=== PATIENT | male | born 1945 | race Asian ===

== ENCOUNTER 2016-08-26 12:30 | Inpatient (IN) | payer OTHER ==
[2016-08-26] MEDS ORDERED: NS 1,000 ML IV ONE (12:38)
[2016-08-26] MEDS ORDERED: HYDROmorphONE/DILAUDID 1 MG/ML SYR IVP ONE (12:38)
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
--- NOTE | 2016-08-26 13:04 | DX ---
AP Pelvis History: Trauma, fall, pain Comparison: None Findings: No pelvic or hip fracture identified. The SI joints and pubic symphysis are normally aligne d. There are bilateral inguinal surgical clips suggesting previous mastectomy. Impression: Nothing acute identified.
--- NOTE | 2016-08-26 13:06 | DX ---
Portable Chest 12:43 History: Trauma, fall Comparison: None Findings: Lungs clear. No pneumothorax, pulmonary contusion or pleural fluid. There is a thoracic sco liosis likely chronic. There is no paraspinal stripe widening. Difficult to exclude cardiomegaly. The pulmonary vascularity is normal for portable supine technique. No obvious fracture identified. Impression: Nothing acute identified.
[2016-08-26 13:18] LABS: % IMMATURE GRANULYOCYTES 0.2 % (0.0-1.1); ABSOLUTE IMMATURE GRANULOCYTES 0.01 10^3/uL (0.00-0.10); ADD DIFF? NO; ADD MORPH? NO; ADD SCAN? NO; ATYPICAL LYMPHOCYTE FLAG 0 (0-99); FRAGMENT RBC FLAG 0 (0-99); HEMATOCRIT 40.9 % (40.0-51.0); HEMOGLOBIN 14.4 g/dL (13.7-17.5); LEFT SHIFT FLG 0 (0-99); LIPEMIA HEMOLYSIS FLAG 90 (0-99); MEAN CELL HEMOGLOBIN 31.4 pg (27.9-34.1); MEAN CELL HEMOGLOBIN CONCENTR. 35.2 g/dL (32.4-36.7); MEAN CELL VOLUME 89.3 fL (81.5-99.8); MEAN PLATELET VOLUME 10.4 fL (8.7-11.7); PLATELET CLUMPS FLAG 0 (0-99); PLATELET COUNT 285 10^3/uL (150-400); RED BLOOD CELL COUNT 4.58 10^6/uL (4.40-6.38); RED CELL DISTRIBUTION WIDTH 12.9 % (11.5-15.2)
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
[2016-08-26 13:35] LABS: INR 0.94 (0.83-1.16); PROTIME(PATIENT) 12.5 SEC (12.0-15.0)
[2016-08-26 13:36] LABS: APTT 28.1 SEC (23.0-38.0)
[2016-08-26 13:46] LABS: ANION GAP 12 mEq/L (8-16); CALCIUM 10.7 mg/dL (8.5-10.4); CARBON DIOXIDE 25 mEq/l (22-31); CHLORIDE 100 mEq/L (97-110); CREATININE 0.7 mg/dL (0.7-1.3); ETHANOL SERUM < 10 mg/dL (0-10); GLOMERULAR FILTRATION RATE > 60; GLUCOSE 254 mg/dL (70-100); POTASSIUM 4.3 mEq/L (3.5-5.2); SODIUM 137 mEq/L (134-144)
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
--- NOTE | 2016-08-26 15:31 | MR ---
MRI of the Cervical Spine (Without Contrast), 14:26 History: Bilateral upper extremity weakness and paresthesias post fall earlier today Comparison: CT neck at 12:49 Technique: Sagittal T1, FSE T2 and STIR images. Axial FSE T2 and GRE images. Findings: The craniocervical junction is normal. Cervical alignment is abnormal and was described on the CT earlier. In brief there is reversed cervical curvature and a mild dextroscoliosis. The cervica l neural canal is currently associated with multilevel spinal stenosis related to disk degeneration a nd dorsal ligamentous hypertrophy. The cervical spine is severely compressed at C3-C4 by a calcified disk protrusion that narrows the midline of the thecal sac to approximately 4.5 mm in the midline and significantly less to the left of midline the cord is banana shaped at this level and no CSF remains in front of or behind the cord. There is some subtle gliosis within the cord beginning at this level and extending to the bottom of C4. There is no evidence of cord hemorrhage or syrinx formation. Ther e is no bone marrow edema to suggest acute hemorrhage. The anterior and posterior longitudinal ligame nt and inter spinous process ligament appear intact. There is no prevertebral or epidural hematoma. C ervical disk spaces below C3 are all severely narrowed. There is some degenerative fatty marrow michael e on either side of the cc for 5 and C6-C7 disk spaces. C2-C3: There is a mild disk bulge or protrusion to the right of midline. CSF surrounds the cord. Both foramen are widely patent. C3-C4: As noted above there is severe central canal stenosis related to a calcified disk protrusion. This material extends above and below the disk space consistent with a prolapsed fragment. There is m oderate right foraminal encroachment secondary to uncovertebral joint spurring. The left foramen is w idely patent. C4-C5: There is a diffuse calcified disk protrusion associated with marginal bone spurs. The protrusi on is greatest centrally and slightly to the left and midline. Virtually no CSF remains in front of o r behind the cord at this level. In the midline AP diameter of the thecal sac is approximately 6.8 mm . There is severe bilateral lateral recess and foraminal stenosis related to uncovertebral joint spur ring. C5-C6: There is a centrally calcified disk protrusion associated with marginal osteophytes and marine chronometer assembler ior ligamentous hypertrophy that together cause severe central canal stenosis with virtually no CSF r emaining or foraminal in front of or behind the cord at this level. The ventral aspect of the cord is mildly flattened. In the midline AP diameter of the thecal sac is approximately 7 mm. There is righ t greater than left severe foraminal stenosis related to uncovertebral joint spurring. There is signi ficant dorsal indentation on the thecal sac related to ligamentous hypertrophy behind the C6 vertebra l body. The cord is prominently dorsally indented. C6-C7: There is a moderate retrolisthesis at this level in the midline AP diameter of the thecal sac is approximately 8.7 mm. A tiny amount of CSF remains behind the cord at this level. AP diameter of t he thecal sac is approximately 7.8 mm. As noted above directly above the disk space level there is do rsal compression of the cord due to ligamentous hypertrophy. There is severe right lateral recess and foraminal encroachment related to uncovertebral joint spurring. Left foramen is more mildly encroach ed upon. C7-T1: There is a diffuse mild disk bulge. CSF is present in front of and behind the cord. In the mid line AP diameter of the thecal sac is approximately 9.6 mm. There is severe right foraminal stenosis secondary to uncovertebral joint spurring. The left foramen is more mildly encroached upon. T1-T2: Normal Impression: Multilevel spondylosis associated with severe central canal stenosis and cord impingement worst at C3-C4. There is no evidence for cord hemorrhage. There is multilevel severe foraminal steno sis. Please see above. I f there is concern for instability consider supervised lateral cervical flex ion and extension views.. Results discussed with Dr. Vasquez at 15:29 p.m.
[2016-08-26] MEDS ORDERED: NALOXONE HCL 0.4 MG/ML INJ IVP PRN (16:23)
[2016-08-26] MEDS ORDERED: ONDANSETRON 4 MG/2 ML VIAL IVP PRN (16:23)
[2016-08-26] MEDS ORDERED: D5W NS 1,000 ML IV SCH (16:30)
--- NOTE | 2016-08-26 19:25 | GCON ---
[f rep st] CONSULTATION NEUROSURGICAL CONSULTATION IN THE EMERGENCY DEPARTMENT. CHIEF COMPLAINT: Fall with weakness. 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 He was at [employer] and the wind caught a grocery cart and he reached to catch it and was knocked over. He had a complete paralysis of his upper and lower ext remities, which slowly returned. He continues to have weakness in his upper extremities, distal and proximal, and allodynia with hyperesthesias of the upper extremities. His lower extremities have rec overed to normal. He denies any lower extremity pain, numbness, tingling, or weakness. He does have weakness in his upper extremities, left greater than right, with hyperesthesias, allodynia. He does have some neck pain at the midline with tenderness. He is in a cervical collar. He denies any hist ory recently of any worsening falls, any worsening dexterity, any bowel or bladder dysfunction, or an y weakness. He denies any history of neck pain or arm pain. He is unaware that he had cervical spon dylosis. PAST MEDICAL HISTORY: Positive for diabetes, peptic ulcer 40 years ago. PAST SURGICAL HISTORY: He denied. FAMILY HISTORY: There is no family history of significant degenerative disease, stroke, or other con tributory factors. SOCIAL HISTORY: He does not drink alcohol beyond an occasional social drink. He does not smoke. He does not use illicit drugs. ALLERGIES: No known drug allergies, although he cannot tolerate NSAIDs secondary to his history of u lcer. MEDICATIONS: Home medications include simvastatin, metformin, 2 other medications, and insulin. He is unaware what the other 2 medications are, but they are both diabetic medications. He takes no asp irin, Plavix, Coumadin, ibuprofen, or Aleve. REVIEW OF SYSTEMS: A complete 10-system review of systems was performed by myself. It was negative except as stated above. PHYSICAL EXAMINATION: VITAL SIGNS: Blood pressure 107/75. MAP is 85. Heart rate is 75. Respirato ry rate is 18. Satting 99% on room air. Temperature 36.6 degrees Celsius. LABORATORY DATA: White blood cell count is 6.55, hemoglobin of 14.4, hematocrit is 40.9, platelets a re 285. PT is 12.5, INR is 0.94, PTT is 28.1. Sodium 137, potassium 4.3, chloride 100, BUN 18, crea tinine 0.7. Glucose 254. Alcohol is less than 10. A CT of the head and cervical spine reveals a left frontal scalp hematoma without evidence of underly ing skull fracture, normocephalic, no coup or contrecoup brain hemorrhage or edema. There was no mid line shift, hydrocephalus, parenchymal or subarachnoid hemorrhage. The ambient cistern is patent. T here is no evidence of subdural or epidural hematoma formation, but a window evaluation does not show evidence of a depressed skull fracture or pneumocephalus. The paranasal and mastoid sinuses are nor mal aerated. A CT of the cervical spine reveals mild cervical scoliosis concaved to the left. With a reversal of the cervical curvature centered in the mid cervical spine, there is likely degenerative retrolisthesi s, C4 on 5, C5 on 6, C6 on 7, with degenerative disk space, narrowing between C3 and C7. There is va cuum disk phenomenon at C7 and T1. The cervicothoracic junction is normally aligned. Facets joints are normally aligned. There is degenerative change of the left C2-3, C6-7, C7-T1, T1-T2, and right C 7-T1 facets. No acute fracture or dislocation is identified. The relationship between the skull bas e and the C1 is normal. The C1-2 articulation is normally aligned, but osteoarthritic. There is deg enerative calcification of the transverse ligament. The odontoid process is intact. There are calci fied cervical disk herniations between C3 and C7, the largest being at C3-4 where a dense disk materi al is identified behind and both above and below the disk space. The neuro canal is quite narrowed. It is level and measures approximately 7 mm in AP diameter. The neuro canal is also quite narrow at C6-7 secondary to osteophyte formation at the posterior inferior corner of C6 where a neuro canal me asures approximately 8.5 mm in diameter. There is severe right lateral recess and medial foraminal s tenosis at C3-4. Severe left foraminal stenosis at C4-5, severe left foraminal stenosis at C5-6, sev ere right foraminal stenosis at C6-7, and severe left foraminal stenosis at C7-T1. Facet joints are normally aligned. Cervicothoracic junction is normal. Soft tissue window evaluation does not show e vidence of epidural or pre-vertebral hematoma. MRI of the cervical spine, without contrast, reveals a reversal of the normal cervical lordosis and a mild dextroscoliosis. The cervical neuro canal is currently associated with multilevel spinal steno sis related to disk degeneration and dorsal ligamentous hypertrophy. The cervical spine is severely compressed at C3-4 by calcified disk protrusion that narrows the midline of the thecal sac to approxi mately 4.5 mm in the midline and significantly left. To the left of midline, the cord is compressed at this level and no CSF remains in front or behind the cord. There is some subtle gliosis with the cord beginning at this level and extending to the bottom of C4. There is no evidence of cord hematom a or syrinx. There is no bone marrow edema to suggest acute hemorrhage. The anterior and posterior longitudinal ligament and interspinous process ligament are intact. There is no prevertebral or epid ural hematoma. Cervical disk spaces below the C3 are all severely narrowed with some degenerative fa tty marrow change on either side for C5 and C6-7 spaces. At C2-3, there is a mild disk bulge or prot rusion to the right of midline. CSF surrounds the cord. Both foramen are widely patent. At C4, it is noted there is severe central canal stenosis secondary to calcified disk and osteophyte. This mat erial extends above and below the disk space, consistent with prolapsed fragment. There is moderate right foraminal encroachment secondary to uncovertebral joint spurring. Left foramen is widely paten t. There is a diffuse calcified disk protrusion associated with marginal bone spurs at C4-5. The pro trusion is greatest centrally and slightly to the left of midline, virtually no CSF remains in front or behind the cord at this level, and the midline AP diameter of the thecal sac is approximately 6.8 mm. There is severe bilateral lateral recess and foraminal stenosis related to uncovertebral joint s purring. At C5-6 there is centrally calcified disk protrusion associated with marginal osteophytes a nd posterior ligamentous hypertrophy that together cause severe central canal stenosis. Virtually no CSF remaining around the foramen, in front of, or behind the cord at this level. The ventral aspect of the cord is mildly flattened in the midline. The AP diameter of the thecal sac is approximately 7 mm. There is right greater than left severe foraminal stenosis related to uncovertebral joint spur ring. There is significant dorsal indentation of the thecal sac related to ligamentous hypertrophy b ehind the C6 vertebral body. The cord is prominent dorsally, indented. At C6-7, there is moderate r etrolisthesis at his level in the midline. AP diameter of the thecal sac is approximately 8.7 mm. A small amount of CSF remains posterior to the cord at this level. The AP diameter of the thecal sac is approximately 7.8 mm. As noted above, directly above the disk space level, there is dorsal compre ssion of the cord due to ligamentous hypertrophy. There is severe right lateral recess and foraminal encroachment related to uncovertebral joint spurring. Left foramen is mildly encroached upon. At C 7-T1, there is diffuse mild disk bulging and CSF is present in front of, behind the cord, and in the midline. AP diameter of the thecal sac is approximately 9.6 mm. There is severe right foraminal balbir nosis secondary to uncovertebral joint spurring. The left foramen is more mildly encroached upon. PHYSICAL EXAMINATION: GENERAL: He is alert and oriented x3. HEENT: There is a little frontal scalp hematoma and abrasion. Pupils are equal, round, and reactive to light and accommodation. External ocular muscles are intact. There is no facial asymmetry or to ngue deviation. NEURO: Sensation is intact in V1, V2, and V3 distributions of the 5th cranial nerve bilaterally. St rength is 5/5 to bilateral hip flexors, knee flexion, knee extension, dorsiflexors, plantar flexors, and EHLs. Sensation is intact to all dermatomal distributions of the lower extremities. DTRs are +2 /4 at patellar and Achilles. Toes are upgoing. There are 2 beats of clonus. On the upper extremiti es, he has hyperesthesias and allodynia, left greater than right. He has 5/5 to the right deltoid, 4 /5 at biceps and triceps, 3/5 at wrist flexors and wrist extensors, and 2/5 at hand intrinsics on the right. On the left, he has 4/5 at the deltoid, 3/5 at biceps and triceps, 2/5 at wrist flexors and wrist extensors, and 1/5 at the hand intrinsics. DTRs are +3/5 at biceps, brachioradialis. He has p ositive Gonzalez's bilaterally. 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 I had a very long discussion with the patient lasting approximately and hour and a half with he and his regarding his history, physical exam, and imaging findings. At this point in time, he will be admitted to the ICU for at least a week of maintaining his MAP greater than 85. Maintain him in a hard cervical collar. Will institute some Neurontin as he has hyperesth esias and neuropathic pain developing. [facility]. Sometime after he is stabilized and we have maintained his MAPs for at least a week, he will require surgical intervention, likely an anterior posterior fusion in a delayed fashion. Justification for the delay at this point in time i s to prevent further worsening with an inflamed cord. I did discuss this plan with him. Trauma has been notified. Trauma has admitted the patient. We will be happy to take over as the primary servic e in 24 hours after the trauma criteria have been met. Would continue with q.1-hour neuro checks. P breanna call with any changes in neurologic status. /[id number]/MODL
[2016-08-26] MEDS ORDERED: D50W 25 GM/50 ML SYR IVP PRN (19:43)
[2016-08-26] MEDS ORDERED: PARAMETERS MISC PRN (19:43)
[2016-08-26] MEDS: FAMOTIDINE 20 MG/NACL 50 ML IV SCH (21:27)
[2016-08-26] MEDS: INSULIN REGULAR, HUMAN 100 UNIT/1 ML VIAL STANDARD SC SCH (21:55)
[2016-08-26] MEDS: GABAPENTIN 100 MG CAP PO SCH (22:01)
--- NOTE | 2016-08-26 22:14 | IR ---
Ultrasound-Guided Peripherally Inserted Central Catheter History: Posttraumatic central cord syndrome. Technique: Procedure was performed with the patient in the hospital bed. Following informed consent, the right arm was prepped and draped in sterile fashion. 1% Xylocaine was used for local anesthetic. All elements of maximal sterile barrier technique including cap, mask, sterile gown, sterile gloves , large sterile sheet, hand hygiene, and 2% chlorhexidine for cutaneous antisepsis, followed. Ultraso und transducer was placed in sterile sleeve and used for real-time imaging guidance to enter the basi lic vein. Sterile coupling gel was used. 0.018 measuring wire was passed centrally , and the inter nal jugular vein was assessed sonographically to exclude retrograde malposition . A skin lucio with scalpel blade was followed by removing the access needle. A 5.5 Setswana peel-away sheath was followed by a 5 Setswana double-lumen central catheter, trimmed to 35 cm length. The length of catheter was rosalee mated from external measurements. The hub of the catheter was fixed to the skin using a sterile StatL ock adhesive device, and a sterile dressing was applied. The catheter irrigated easily. A portable chest radiograph was requested and will be reported separately. Findings: No sonographic evidence of malposition in the internal jugular vein. Impression: Ultrasound-guided 5 Setswana double-lumen peripherally inserted central catheter; radiograp hic confirmation is pending. - - - - - - - - - - - - - - - - - - - - - - - - - - - - - - - - - - - - - - - - - - - (Cross-cutting measures: Current medications, including all known prescriptions, [id number] me dications, herbal medications, and nutritional supplements are listed in the medical record. The pat ient does not smoke. ) IR call.
--- NOTE | 2016-08-26 22:16 | DX ---
Portable semiupright AP chest August 26, 2016, 2145 hours History: Assess new central catheter. Findings: Telemetry leads obscure the chest. Peripherally inserted central catheter of the right arm terminates in the superior vena cava. Lungs are clear. Heart size is normal. Scoliosis is unchanged f rom 1243 hours. Impression: New peripherally inserted central catheter of the right arm is ready to use. IR call
--- NOTE | 2016-08-27 07:21 | NEUSURGPN ---
Assessment/Plan: 70 yo M s/p fall with cervical stenosis and central cord syndrome Plan: -diet ordered -Pain management, on gabapentin 100 TID, can increase dose in a few days -OOB with assist only -C collar at all times -Keep MAP >85 -D/w Dr Holloway -Call NS with any issues Subjective: Pt resting in bed, states his arms are getting stronger, still with pain in arms. Legs feel fine. Objective: AAOx3 NAD VSS C collar on BUE - skin sensitive to touch. Able to lift arms and wiggle fingers. Cannot fully extend left hand, stronger on right Motor 5/5 BLE, intact sensation BLE Urinary Catheter in Place: No - Physician Discussed Patient with : [facility] Physical Exam - Vitals, I&O, Labs I and O 08/26/16 08/27/16 08/28/16 05:59 05:59 05:59 Intake Total 1569 Output Total 375 Balance 1194 Weight 48.1 kg Intake: Oral (ml) 0 IV Infused (ml) 1569 D5w Ns 1,000 ml @ 125 mls 1376 /hr IV CONT LAILA Rx#: [id number] Norepinephrine Bitartrate 193 4 mg In D5w 500 ml @ Titrate IV CONT LAILA Rx#: [id number] Output: Urine (ml) 375 Urinal 375 Vital Signs Temp Pulse Resp BP Pulse Ox 36.6 C 74 19 166/74 H 97 08/26/16 17:23 08/27/16 06:00 08/27/16 06:00 08/27/16 06:00 08/27/16 06:00 ICD10 Worksheet Patient Problems: Problems Problem Status Diagnosed Central cord syndrome Acute - ICD10 Problem Qualifiers (1) Central cord syndrome
--- NOTE | 2016-08-27 08:02 | TRAUMAPN ---
- Problem/Surgery Performed (1) Central cord syndrome Assessment/Plan: continue to maintain MAPs greater than 85 for central cord syndrome s/p fall in the setting of severe cervical stenosis Per Dr. Holloway, he will need operative intervention once the acute inflammation /edema has resolved She will take over care of the patient, as he has no other acute traumatic injuries, but we will be happy to reconsult if needed. Subjective: continues to have severe shooting pain and paresthesias of bilateral upper extremities Objective: Vital Signs Temp Pulse Resp BP Pulse Ox 36.6 C 74 19 166/74 H 97 08/26/16 17:23 08/27/16 06:00 08/27/16 06:00 08/27/16 06:00 08/27/16 06:00 08/26/16 08/27/16 08/28/16 05:59 05:59 05:59 Intake Total 1569 Output Total 375 Balance 1194 PT 12.5 SEC (12.0-15.0) 08/26/16 12:38 INR 0.94 (0.83-1.16) 08/26/16 12:38 Physical Exam - Physical Exam General Appearance: alert Neck: other (in [place] J collar)
[2016-08-27] MEDS: INSULIN REGULAR, HUMAN 100 UNIT/1 ML VIAL STANDARD SC SCH ×4 (08:47→21:18)
[2016-08-27] MEDS: GABAPENTIN 100 MG CAP PO SCH ×3 (08:47→21:08)
[2016-08-27] MEDS: FAMOTIDINE 20 MG/NACL 50 ML IV SCH ×2 (08:47→21:08)
[2016-08-27] MEDS: NS 1,000 ML IV SCH ×2 (10:31→23:00)
[2016-08-27] MEDS ORDERED: GLIMEPIRIDE 2 MG TAB PO ONE (17:00)
--- NOTE | 2016-08-27 17:23 | GCON ---
[f rep st] CONSULTATION PULMONARY/CRITICAL CARE CONSULTATION DATE OF CONSULTATION: 08/27/2016 REFERRING PHYSICIAN: Birdie Holloway DO REASON FOR REFERRAL: Evaluation and management of diabetes with hyperglycemia and blood pressure management. HISTORY: The patient is a 70-year-old gentleman, recently retired from [employer], who was in his usual state of health when he was shopping and the wind caught a grocery cart. He was knocked over and had complete quadriplegia that was transient. He was brought into the hospital because of the quadriplegia. Today , he continued to have paresthesias/hyperesthesia of his upper extremities, but he states that is improving. He is also starting to regain some strength in his upper extremities and has significant strength in his lower extremities. He has had a cervical collar on since being brought to the hospital. He denies any bowel or bladder dysfunction. He has no prior known history of cervical stenosis. PAST MEDICAL HISTORY: 1. Diabetes. 2. Peptic ulcer. MEDICATIONS: At the time of admission included simvastatin, metformin, aspirin , insulin, and Amaryl. ALLERGIES: None. SOCIAL HISTORY: The patient does not drink or smoke. FAMILY HISTORY: Unremarkable. REVIEW OF SYSTEMS: A 10-point review of systems adds nothing to the history of present illness. PHYSICAL EXAMINATION: GENERAL: The patient is awake, alert, and in no acute distress, lying in bed. VITAL SIGNS: His blood pressure is 167/72 with a mean arterial pressure of 96. His heart rate is 80. His oxygen saturations are 98% on room air. HEENT: Normocephalic and atraumatic. No icterus. NECK: A cervical collar is in place. No palpable adenopathy. CHEST: Clear to auscultation. CARDIAC: Regular rate and rhythm without murmur. ABDOMEN: Soft , nontender. Bowel sounds are present. EXTREMITIES: No clubbing, cyanosis, or edema. NEURO: The patient has just 2/5 strength in both upper extremities and has some hyperesthesias. He has 4/5 strength in both lower extremities. LABORATORY: CBC is normal. Chemistry group is normal. Glucose is 281 and has been in the 200s since hospitalization. A chest x-ray is unremarkable. Images reviewed. CT scan of the cervical spine shows severe central canal stenosis at C3-4 and C6 -7. Cervical spine MRI confirms severe foraminal stenosis, with no evidence of cord hemorrhage. ASSESSMENT: 1. Transient quadriplegia due to severe cervical stenosis with a transient injury. The patient has return of neuro function following this acute injury. Current management is to include maintenance of a cervical collar as well as maintaining a mean arterial pressure of least 85. Norepinephrine is being used as needed to maintain blood pressure. 2. Diabetes. The patient has been hyperglycemic, likely because his metformin and Amaryl are being held. RECOMMENDATIONS: Resume Amaryl. Metformin could be given if no further contrast imaging studies are planned. His insulin dose will also be increased in order to try to improve his glycemic control. /[id number]/MODL MTDD
[2016-08-28] MEDS: NOREPINEPHRINE BITARTRATE 4 MG in D5W 500 ML IV SCH (00:48)
--- NOTE | 2016-08-28 07:26 | SOAPPROG ---
SOAP Progress Note Assessment/Plan: Assessment: 70 yo M with central cord syndrome and cervical stenosis Plan: stable will keep MAPs above 85 mmhg continue hard collar at all times PT/OT please call with neuro changes patient was seen by DR Sanford 08/28/16 07:24 Subjective: continued burning pain in hands and hand weakness. Objective: Vital Signs Temp Pulse Resp BP Pulse Ox 36.7 C 77 18 164/76 H 98 08/28/16 04:00 08/28/16 06:00 08/28/16 06:00 08/28/16 06:00 08/28/16 06:00 08/27/16 08/28/16 08/29/16 05:59 05:59 05:59 Intake Total 1569 3347 Output Total 375 2930 Balance 1194 417 PT 12.5 SEC (12.0-15.0) 08/26/16 12:38 INR 0.94 (0.83-1.16) 08/26/16 12:38 AAOx4 ,+FC PERRL, EOMI, no facial droop upper extremities 3-/5 deltoids/biceps, 2-/5 triceps/implementation director 5/5 legs + light touch x 4 ICD10 Worksheet Patient Problems: Problems Problem Status Diagnosed Central cord syndrome Acute Cervical spinal cord injury Acute
[2016-08-28] MEDS: INSULIN REGULAR, HUMAN 100 UNIT/1 ML VIAL STANDARD SC SCH ×4 (08:26→20:45)
[2016-08-28] MEDS: FAMOTIDINE 20 MG/NACL 50 ML IV SCH (08:27)
[2016-08-28] MEDS: GLIMEPIRIDE 2 MG TAB PO SCH (08:27)
[2016-08-28] MEDS: GABAPENTIN 100 MG CAP PO SCH ×3 (08:27→21:51)
[2016-08-28] MEDS ORDERED: POLYETHYLENE GLYCOL 3350 17 GM PKT PO PRN (10:20)
[2016-08-28] MEDS ORDERED: BISACODYL 10 MG SUPP PR PRN (10:20)
[2016-08-28] MEDS ORDERED: MAGNESIUM HYDROXIDE 30 ML UDCUP PO PRN (10:20)
[2016-08-28] MEDS ORDERED: LACTULOSE 20 GM/30 ML UDCUP PO PRN (10:20)
--- NOTE | 2016-08-28 13:12 | PDINTPN ---
[employer] Progress Note Assessment/Plan: Assessment: Status post cervical spine injury, with transient quadriplegia, now improving slowly. Upper extremities affected more than the lower extremities. Neuro surgery is following. On Levophed to maintain mean arterial pressures greater than 85. On Neurontin for associated pain and hypersensitivity. Diabetes: On oral agents and sliding scale insulin. Blood sugars acceptable. Plan: Continue neuro monitoring and blood pressure support in the intensive care unit for now. Will need cervical spine surgery at some point for decompression. Will follow laboratory intermittently. Continue insulin by sliding scale. Subjective: Doing okay. Movement of the upper extremities is a little better, strength slightly better. He continues to be quite hypersensitive. Lower extremities at baseline according to the patient. No neck pain. In a collar. Objective: Vital Signs Temp Pulse Resp BP Pulse Ox 36.7 C 81 16 171/83 H 98 08/28/16 04:00 08/28/16 12:00 08/28/16 12:00 08/28/16 12:00 08/28/16 12:00 08/27/16 08/28/16 08/29/16 05:59 05:59 05:59 Intake Total 1569 3347 Output Total 375 2930 Balance 1194 417 PT 12.5 SEC (12.0-15.0) 08/26/16 12:38 INR 0.94 (0.83-1.16) 08/26/16 12:38 Physical Exam - Physical Exam General Appearance: alert, no apparent distress, other (In bed, appears comfortable ) EENT: PERRL/EOMI Neck: other (Hard collar) Respiratory: lungs clear Cardiac/Chest: regular rate, rhythm Abdomen: normal bowel sounds, non-tender, soft Male Genitalia: other (No [place] catheter) Back: Normal inspection Skin: warm/dry, pallor Lymphatic: no adenopathy Extremities: No pedal edema Neuro/Psych: motor weakness, sensory deficit, other (Right upper extremity stronger than left, approximately 3+ orange picker on the right, 1+ on the left. Hypersensitivity persists. Moves lower extremities equally with good strength.) , No cognition abnormalities ICD10 Worksheet Patient Problems: Problems Problem Status Diagnosed Central cord syndrome Acute Cervical spinal cord injury Acute
[2016-08-28] MEDS: SENNOSIDES/DOCUSATE SODIUM TAB PO SCH (20:45)
[2016-08-29 05:19] LABS: % IMMATURE GRANULYOCYTES 0.4 % (0.0-1.1); ABSOLUTE IMMATURE GRANULOCYTES 0.04 10^3/uL (0.00-0.10); ADD DIFF? NO; ADD MORPH? NO; ADD SCAN? NO; ATYPICAL LYMPHOCYTE FLAG 0 (0-99); FRAGMENT RBC FLAG 0 (0-99); HEMATOCRIT 36.6 % (40.0-51.0); HEMOGLOBIN 12.7 g/dL (13.7-17.5); LEFT SHIFT FLG 10 (0-99); LIPEMIA HEMOLYSIS FLAG 90 (0-99); MEAN CELL HEMOGLOBIN 31.1 pg (27.9-34.1); MEAN CELL HEMOGLOBIN CONCENTR. 34.7 g/dL (32.4-36.7); MEAN CELL VOLUME 89.5 fL (81.5-99.8); MEAN PLATELET VOLUME 10.1 fL (8.7-11.7); PLATELET CLUMPS FLAG 10 (0-99); PLATELET COUNT 201 10^3/uL (150-400); RED BLOOD CELL COUNT 4.09 10^6/uL (4.40-6.38)
[2016-08-29 05:24] LABS: ALANINE AMINOTRANSFERASE 24 IU/L (21-72); ALKALINE PHOSPHATASE 46 IU/L (38-126); ANION GAP 5 mEq/L (8-16); ASPARTATE AMINOTRANSFERASE 15 IU/L (17-59); BILIRUBIN,TOTAL 0.7 mg/dL (0.1-1.4); CALCIUM 9.6 mg/dL (8.5-10.4); CARBON DIOXIDE 24 mEq/l (22-31); CHLORIDE 106 mEq/L (97-110); CREATININE 0.7 mg/dL (0.7-1.3); GLOMERULAR FILTRATION RATE > 60; GLUCOSE 121 mg/dL (70-100); POTASSIUM 3.9 mEq/L (3.5-5.2); SODIUM 135 mEq/L (134-144); TOTAL PROTEIN 5.8 g/dL (6.3-8.2)
--- NOTE | 2016-08-29 06:42 | NEUSURGPN ---
Assessment/Plan: Assessment: 70 yo M with central cord syndrome and cervical stenosis Plan: -neuro improved with some increased strength in arms, continued pain -stable -will keep MAPs above 85 mmhg until 09/02 -continue hard collar at all times -PT/OT-CPM -please call with neuro changes -d/w Dr Dinh -continue with ICU status Subjective: No new complaints or concerns. Pt resting well. at bedside. No denise/cp/sob /abd or gu complaints. Objective: AAOx4 ,+FC PERRLA, EOMI, no facial droop upper extremities 3-/5 deltoids/biceps, 2-/5 triceps/treatment plant operator 3/5 5/5 legs = + light touch x 4 Neuro Check Frequency: per routine Urinary Catheter in Place: No - Physician Discussed Patient with : [facility] Physical Exam - Vitals, I&O, Labs I and O 08/28/16 08/29/16 08/30/16 05:59 05:59 05:59 Intake Total 3347 2507.2 Output Total 2930 2950 Balance 417 -442.8 Intake: Oral (ml) 700 200 IV Infused (ml) 2647 2307.2 Norepinephrine Bitartrate 313 74.2 4 mg In D5w 500 ml @ Titrate IV CONT LAILA Rx#: [id number] Ns 1,000 ml @ 100 mls/hr 2334 2233 IV CONT LAILA Rx#: [id number] Output: Urine (ml) 2930 2950 Urinal 2930 2950 Other: Intake Quantity Yes Sufficient Number of Voids Urinal 1 1 Vital Signs Temp Pulse Resp BP Pulse Ox 36.7 C 74 17 149/75 H 100 08/29/16 04:00 08/29/16 06:00 08/29/16 06:00 08/29/16 06:00 08/29/16 06:00 Laboratory Results 08/29/16 05:00 08/29/16 05:00 ICD10 Worksheet Patient Problems: Problems Problem Status Diagnosed Central cord syndrome Acute Cervical spinal cord injury Acute
[2016-08-29] MEDS: INSULIN REGULAR, HUMAN 100 UNIT/1 ML VIAL STANDARD SC SCH ×3 (08:41→19:00)
[2016-08-29] MEDS: GABAPENTIN 100 MG CAP PO SCH ×3 (08:42→21:32)
[2016-08-29] MEDS: GLIMEPIRIDE 2 MG TAB PO SCH (08:42)
[2016-08-29] MEDS: SENNOSIDES/DOCUSATE SODIUM TAB PO SCH ×2 (08:42→21:32)
--- NOTE | 2016-08-29 16:15 | PDINTPN ---
Administrative Director Progress Note Assessment/Plan: Assessment: Status post cervical spine injury, with transient quadriplegia, now improving slowly. Upper extremities affected more than the lower extremities. Neuro surgery is following. On Levophed to maintain mean arterial pressures greater than 85. On Neurontin for associated pain and hypersensitivity. Diabetes: On oral agents and sliding scale insulin. Blood sugars acceptable. Can restart outpatient oral Plan: Continue neuro monitoring and blood pressure support in the intensive care unit for now. Will need cervical spine surgery at some point for decompression. Will follow laboratory intermittently. Continue insulin by sliding scale. Restart metformin. Start Lovenox prophylactically. Rehab consultation for care following discharge. Discussed with nursing, the patient and his , and the ICU multi disciplinary team. Subjective: Doing okay. Weakness persists, perhaps a little bit better in the upper extremities. Pain sensations related to the upper extremities and torso persists. Objective: Vital Signs Temp Pulse Resp BP Pulse Ox 37.3 C 82 20 153/74 H 95 08/29/16 07:00 08/29/16 15:00 08/29/16 15:00 08/29/16 15:00 08/29/16 15:00 Laboratory Results 08/29/16 05:00 08/29/16 05:00 08/28/16 08/29/16 08/30/16 05:59 05:59 05:59 Intake Total 3347 2507.2 Output Total 2930 2950 1225 Balance 417 -442.8 -1225 PT 12.5 SEC (12.0-15.0) 08/26/16 12:38 INR 0.94 (0.83-1.16) 08/26/16 12:38 Laboratory Tests 08/28/16 08/29/16 11:32 05:00 POC Glucose 221 H Calcium 9.6 Total Bilirubin 0.7 AST 15 L ALT 24 Albumin 3.0 L Physical Exam - Physical Exam General Appearance: alert, mild distress (At times) EENT: PERRL/EOMI, other (On room air) Neck: normal inspection (No JVD) Respiratory: lungs clear, decreased breath sounds (At bases) Cardiac/Chest: regular rate, rhythm Abdomen: normal bowel sounds, non-tender, soft Male Genitalia: other (No Tinoco catheter, using urinal) Skin: normal color, warm/dry Lymphatic: no adenopathy Extremities: pedal edema (Trace) Neuro/Psych: motor weakness (Upper extremities primarily. He is able to stand with assistance, pivot to chair.), No no motor/sensory deficits, No cognition abnormalities ICD10 Worksheet Patient Problems: Problems Problem Status Diagnosed Central cord syndrome Acute Cervical spinal cord injury Acute
[2016-08-29] MEDS: ENOXAPARIN 40 MG/0.4 ML SYR SC SCH (18:58)
[2016-08-29] MEDS: metFORMIN HCL 500 MG TAB PO SCH (18:58)
[2016-08-29] MEDS ORDERED: INSULIN NPH HUMAN 100 UNIT/ML SC SCH (21:00)
[2016-08-29] MEDS ORDERED: NPH HUMAN INSULIN ISOPHANE 8 UNIT SQ SCH (21:00)
[2016-08-29] MEDS: HYDROCODONE/APAP 5/325 TAB PO PRN (21:32)
[2016-08-30 06:24] LABS: % IMMATURE GRANULYOCYTES 0.4 % (0.0-1.1); ABSOLUTE IMMATURE GRANULOCYTES 0.04 10^3/uL (0.00-0.10); ADD DIFF? NO; ADD MORPH? NO; ADD SCAN? NO; ATYPICAL LYMPHOCYTE FLAG 0 (0-99); FRAGMENT RBC FLAG 0 (0-99); HEMOGLOBIN 12.9 g/dL (13.7-17.5); LEFT SHIFT FLG 10 (0-99); LIPEMIA HEMOLYSIS FLAG 90 (0-99); MEAN CELL HEMOGLOBIN 31.8 pg (27.9-34.1); MEAN CELL HEMOGLOBIN CONCENTR. 34.9 g/dL (32.4-36.7); MEAN CELL VOLUME 91.1 fL (81.5-99.8); MEAN PLATELET VOLUME 10.6 fL (8.7-11.7); PLATELET CLUMPS FLAG 0 (0-99); PLATELET COUNT 209 10^3/uL (150-400); RED BLOOD CELL COUNT 4.06 10^6/uL (4.40-6.38); RED CELL DISTRIBUTION WIDTH 13.1 % (11.5-15.2)
[2016-08-30 07:30] LABS: ANION GAP 7 mEq/L (8-16); CARBON DIOXIDE 24 mEq/l (22-31); CHLORIDE 106 mEq/L (97-110); CREATININE 0.7 mg/dL (0.7-1.3); GLOMERULAR FILTRATION RATE > 60; GLUCOSE 166 mg/dL (70-100); MAGNESIUM 1.8 mg/dL (1.6-2.3); POTASSIUM 4.6 mEq/L (3.5-5.2); SODIUM 137 mEq/L (134-144)
--- NOTE | 2016-08-30 07:30 | NEUSURGPN ---
Assessment/Plan: Assessment: 70 yo M with central cord syndrome and cervical stenosis Plan: -neuro improved with some increased strength in arms, continued pain-better overall day to day -stable -will keep MAPs above 85 mmhg until 09/02 -continue hard collar at all times -plan for 3 level ACDF next week -PT/OT-CPM -please call with neuro changes -d/w Dr Dinh -continue with ICU status Subjective: Awake and alert. NAD. Eating/drinking and voiding. No denise/neck/chest/abd or gu complaints Objective: AAOx4 ,+FC PERRLA, EOMI, no facial droop upper extremities 3-/5 deltoids/biceps, 3/5 triceps/vamp maker 3/5 5/5 legs = + light touch x 4 Neuro Check Frequency: per routine Urinary Catheter in Place: No - Physician Discussed Patient with : [facility] Physical Exam - Vitals, I&O, Labs I and O 08/29/16 08/30/16 08/31/16 05:59 05:59 05:59 Intake Total 2507.2 2477 Output Total 2950 2450 600 Balance -442.8 27 -600 Intake: Oral (ml) 200 600 IV Infused (ml) 2307.2 1877 Norepinephrine Bitartrate 74.2 51 4 mg In D5w 500 ml @ Titrate IV CONT LAILA Rx#: [id number] Ns 1,000 ml @ 100 mls/hr 2233 1826 IV CONT LAILA Rx#: [id number] Output: Urine (ml) 2950 2450 600 Urinal 2950 2450 600 Other: Number of Voids Urinal 1 Bladder Scan Volume (ml) Urinal 75 Vital Signs Temp Pulse Resp BP Pulse Ox 37.3 C 69 19 140/76 H 95 08/30/16 00:00 08/30/16 07:00 08/30/16 07:00 08/30/16 07:00 08/30/16 07:00 Laboratory Results 08/30/16 06:15 ICD10 Worksheet Patient Problems: Problems Problem Status Diagnosed Central cord syndrome Acute Cervical spinal cord injury Acute
[2016-08-30] MEDS ORDERED: NON-FORMULARY NEW DRUG (Glimepiride [Amaryl] 4 MG) PO SCH (09:00)
[2016-08-30] MEDS: ENOXAPARIN 40 MG/0.4 ML SYR SC SCH (09:06)
[2016-08-30] MEDS: GLIMEPIRIDE 2 MG TAB PO SCH (09:07)
[2016-08-30] MEDS: INSULIN REGULAR, HUMAN 100 UNIT/1 ML VIAL STANDARD SC SCH ×3 (09:07→19:15)
[2016-08-30] MEDS: metFORMIN HCL 500 MG TAB PO SCH ×2 (09:07→19:16)
[2016-08-30] MEDS: GABAPENTIN 100 MG CAP PO SCH ×3 (09:07→21:45)
[2016-08-30] MEDS: SENNOSIDES/DOCUSATE SODIUM TAB PO SCH (09:49)
--- NOTE | 2016-08-30 12:42 | PDINTPN ---
Sales Representative Jewelry Progress Note Assessment/Plan: Assessment: Status post cervical spine injury, with transient quadriplegia, now improving slowly. Upper extremities affected more than the lower extremities. Neuro surgery is following. On Levophed to maintain mean arterial pressures greater than 85. On Neurontin for associated pain and hypersensitivity. Diabetes: On oral agents and sliding scale insulin. Blood sugars acceptable. Can restart outpatient oral Plan: Continue neuro monitoring and blood pressure support in the intensive care unit for now. Will need cervical spine surgery at some point for decompression. Tentatively scheduled for the . Will follow laboratory intermittently. Continue insulin by sliding scale and oral agents. Continue Lovenox prophylactically. Rehab consultation for care following discharge. Discussed with nursing, the patient and his , and the ICU multi disciplinary team. 25 minutes of critical care time was spent directly with the patient. Subjective: Doing okay, approximately the same regarding his neurologic status and pain. The latter may be a little bit better. Positive BM. Back on pressors for MAP. Objective: Vital Signs Temp Pulse Resp BP Pulse Ox 36.8 C 75 19 142/76 H 88 L 08/30/16 12:00 08/30/16 12:00 08/30/16 12:00 08/30/16 12:00 08/30/16 12:00 Laboratory Results 08/30/16 06:15 08/30/16 06:15 08/29/16 08/30/16 08/31/16 05:59 05:59 05:59 Intake Total 2507.2 2477 Output Total 2950 2450 1000 Balance -442.8 27 -1000 PT 12.5 SEC (12.0-15.0) 08/26/16 12:38 INR 0.94 (0.83-1.16) 08/26/16 12:38 Physical Exam - Physical Exam General Appearance: alert, no apparent distress EENT: PERRL/EOMI, other (On room air) Neck: other (Hard collar in place) Respiratory: lungs clear, decreased breath sounds (At bases) Cardiac/Chest: regular rate, rhythm Abdomen: normal bowel sounds, non-tender, soft Male Genitalia: other (Using urinal) Skin: normal color, warm/dry Extremities: other (Upper extremity pain/tenderness with touch persists.), No pedal edema Neuro/Psych: motor weakness, No no motor/sensory deficits, No cognition abnormalities (Neurologic examination very similar: Right hand strength greater than left, legs weak but able to stand and take a few steps with assistance) ICD10 Worksheet Patient Problems: Problems Problem Status Diagnosed Central cord syndrome Acute Cervical spinal cord injury Acute
--- NOTE | 2016-08-30 16:10 | PDINTPN ---
Mower Sharpener Progress Note Assessment/Plan: Assessment: Status post cervical spine injury, with transient quadriplegia, now improving slowly. Upper extremities affected more than the lower extremities. Neuro surgery is following. On Levophed to maintain mean arterial pressures greater than 85. On Neurontin for associated pain and hypersensitivity. Diabetes: On oral agents and sliding scale insulin. Blood sugars remain high. Will start Lantus at night. Plan: Continue neuro monitoring and blood pressure support in the intensive care unit for now. Will need cervical spine surgery at some point for decompression. Tentatively scheduled for the . Will follow laboratory intermittently. Continue insulin by sliding scale and oral agents. Continue Lovenox prophylactically. Rehab consultation for care following discharge. Discussed with nursing, the patient and his , and the ICU multi disciplinary team. 20 minutes of critical care time was spent directly with the patient. Subjective: Less pain, perhaps little stronger regarding the upper extremities. Remains in good spirits Objective: Vital Signs Temp Pulse Resp BP Pulse Ox 36.8 C 81 19 134/79 H 96 08/30/16 12:00 08/30/16 15:00 08/30/16 15:00 08/30/16 15:00 08/30/16 15:00 Laboratory Results 08/30/16 06:15 08/30/16 06:15 08/29/16 08/30/16 08/31/16 05:59 05:59 05:59 Intake Total 2507.2 2477 Output Total 2950 2450 1600 Balance -442.8 27 -1600 PT 12.5 SEC (12.0-15.0) 08/26/16 12:38 INR 0.94 (0.83-1.16) 08/26/16 12:38 Physical Exam - Physical Exam General Appearance: alert, no apparent distress, thin EENT: other (On room air) Neck: normal inspection Respiratory: lungs clear, decreased breath sounds Cardiac/Chest: regular rate, rhythm Abdomen: normal bowel sounds, non-tender, soft Skin: normal color, warm/dry Extremities: No pedal edema Neuro/Psych: motor weakness (Hand thumb sewer strength seem slightly better bilaterally. Stronger on the right than the left), No no motor/sensory deficits , No cognition abnormalities ICD10 Worksheet Patient Problems: Problems Problem Status Diagnosed Central cord syndrome Acute Cervical spinal cord injury Acute
[2016-08-30] MEDS ORDERED: INSULIN GLARGINE 100 UNITS/ML SYRINGE SC SCH (21:00)
[2016-08-31] MEDS: SENNOSIDES/DOCUSATE SODIUM TAB PO SCH ×3 (05:38→21:17)
[2016-08-31] MEDS: GABAPENTIN 100 MG CAP PO SCH ×3 (05:42→20:59)
--- NOTE | 2016-08-31 07:32 | SOAPPROG ---
SOAP Progress Note Assessment/Plan: Assessment: 70 yo M with central cord syndrome and cervical stenosis Plan: stable will keep MAPs above 85 mmhg until 09/02/16 continue hard collar at all times PT/OT scd/zoila/lovenox for dvt prophylaxis plan for ACDF next week, likely Sunday09/05/16 please call with neuro changes discussed with Dr Dinh 08/28/16 07:24 08/31/16 07:28 08/31/16 07:32 Subjective: burning in arms/hands improving. patient walked with PT yesterday. wearing collar Objective: Vital Signs Temp Pulse Resp BP Pulse Ox 37.5 C 70 16 154/81 H 97 08/31/16 00:00 08/31/16 06:00 08/31/16 06:00 08/31/16 06:00 08/31/16 06:00 Laboratory Results 08/30/16 06:15 08/30/16 06:15 08/30/16 08/31/16 09/01/16 05:59 05:59 05:59 Intake Total 2477 2295 Output Total 2450 3025 Balance 27 -730 PT 12.5 SEC (12.0-15.0) 08/26/16 12:38 INR 0.94 (0.83-1.16) 08/26/16 12:38 AAOx4, +FC PERRL, EOMI, no facial droop right arm 3+5, left 2+/5 + light touch but hyperesthesia in arms ICD10 Worksheet Patient Problems: Problems Problem Status Diagnosed Central cord syndrome Acute Cervical spinal cord injury Acute
[2016-08-31] MEDS: NS 1,000 ML IV SCH ×3 (08:16→22:48)
[2016-08-31] MEDS: ENOXAPARIN 40 MG/0.4 ML SYR SC SCH (08:16)
[2016-08-31] MEDS: GLIMEPIRIDE 2 MG TAB PO SCH (08:16)
[2016-08-31] MEDS: metFORMIN HCL 500 MG TAB PO SCH ×2 (08:17→18:28)
[2016-08-31] MEDS: INSULIN REGULAR, HUMAN 100 UNIT/1 ML VIAL STANDARD SC SCH ×3 (08:17→18:29)
--- NOTE | 2016-08-31 09:23 | PDINTPN ---
Entry Engineer Progress Note Assessment/Plan: Assessment: Status post cervical spine injury, with transient quadriplegia, now improving slowly. Upper extremities affected more than the lower extremities. Neuro surgery is following. Off Levophed since late yesterday. On Neurontin for associated pain and hypersensitivity. Diabetes: On oral agents and sliding scale insulin. Blood sugars remain high. Lantus started yesterday.. Plan: Continue neuro monitoring in ICU. Restart norepinephrine if needed. Will need cervical spine surgery at some point for decompression. Tentatively scheduled for the vs or ? Per Neurosurgery. Will follow laboratory intermittently. Continue insulin by sliding scale and oral agents. Increase Lantus. Continue Lovenox prophylactically. Discussed with nursing, the patient and his , and the ICU multi disciplinary team. 25 minutes of critical care time was spent directly with the patient. Subjective: Doing well. Feels better. Much less pain related to his upper extremities, shoulders. Walking in the [place] with physical therapy with much less assistance. In good spirits. Objective: Vital Signs Temp Pulse Resp BP Pulse Ox 36.8 C 74 19 117/83 H 95 08/31/16 08:00 08/31/16 08:00 08/31/16 08:00 08/31/16 08:00 08/31/16 08:00 Laboratory Results 08/30/16 06:15 08/30/16 06:15 08/30/16 08/31/16 09/01/16 05:59 05:59 05:59 Intake Total 2477 2295 Output Total 2450 3025 320 Balance 27 -730 -320 PT 12.5 SEC (12.0-15.0) 08/26/16 12:38 INR 0.94 (0.83-1.16) 08/26/16 12:38 Physical Exam - Physical Exam General Appearance: alert, no apparent distress EENT: PERRL/EOMI, other (On room air) Neck: other Respiratory: lungs clear Cardiac/Chest: regular rate, rhythm Abdomen: normal bowel sounds, non-tender, soft Male Genitalia: other (Using urinal) Back: Normal inspection Skin: warm/dry, pallor Lymphatic: no adenopathy Extremities: No pedal edema Neuro/Psych: No no motor/sensory deficits, No cognition abnormalities (Upper extremity examination unchanged regarding strength. Right hand stronger than left, both weak. Touching the hands, arms results in very little pain sensation at this point.) ICD10 Worksheet Patient Problems: Problems Problem Status Diagnosed Central cord syndrome Acute Cervical spinal cord injury Acute
[2016-08-31] MEDS: HYDROCODONE/APAP 5/325 TAB PO PRN (20:58)
[2016-08-31] MEDS: INSULIN GLARGINE 100 UNITS/ML SYRINGE SC SCH (21:05)
[2016-08-31] MEDS: NOREPINEPHRINE BITARTRATE 4 MG in D5W 500 ML IV SCH (22:47)
--- NOTE | 2016-09-01 07:46 | NEUSURGPN ---
Assessment/Plan: Assessment: 70 yo M with central cord syndrome and cervical stenosi Plan: stable will keep MAPs above 85 mmhg until 09/02/16 continue hard collar at all times PT/OT scd/zoila/lovenox for dvt prophylaxis plan ACDF C3/4, C4/5, C5/6 with partial corpectomy C4 next week, likely Sunday09/05/16 please call with neuro changes discussed with Dr Dinh Subjective: Burning pain in arms improved this morning Objective: NAD A&Ox3 MAEx4 WF/WE 1/5 on the left 2/5 on the right. RUE 4-/5, LUE 3+/5, except deltoid 3-/5 Hypersensitivity BUE. BLE 5/5 - Physician Discussed Patient with : [facility] Physical Exam - Vitals, I&O, Labs I and O 08/31/16 09/01/16 09/02/16 05:59 05:59 05:59 Intake Total 2295 2718 Output Total 3025 1470 Balance -730 1248 Intake: Oral (ml) 1150 500 IV Infused (ml) 1145 2218 Norepinephrine Bitartrate 71 20 4 mg In D5w 500 ml @ Titrate IV CONT LAILA Rx#: [id number] Ns 1,000 ml @ 100 mls/hr 1074 2198 IV CONT LAILA Rx#: [id number] Output: Urine (ml) 3025 1470 Urinal 3025 770 Bedside Commode 700 Other: Output Comment Urinal suppository given Number of Voids Urinal 1 4 Bedside Commode 1 Number of Stools Urinal 1 Bedside Commode 1 Vital Signs Temp Pulse Resp BP Pulse Ox 36.8 C 92 17 148/75 H 98 09/01/16 00:00 09/01/16 07:00 09/01/16 07:00 09/01/16 07:00 09/01/16 07:00 Laboratory Results 08/30/16 06:15 08/30/16 06:15 ICD10 Worksheet Patient Problems: Problems Problem Status Diagnosed Central cord syndrome Acute Cervical spinal cord injury Acute
[2016-09-01] MEDS: INSULIN REGULAR, HUMAN 100 UNIT/1 ML VIAL STANDARD SC SCH ×3 (08:57→17:58)
[2016-09-01] MEDS: metFORMIN HCL 500 MG TAB PO SCH ×2 (09:02→18:02)
[2016-09-01] MEDS: ENOXAPARIN 40 MG/0.4 ML SYR SC SCH (09:02)
[2016-09-01] MEDS: GLIMEPIRIDE 2 MG TAB PO SCH (09:02)
[2016-09-01] MEDS: GABAPENTIN 100 MG CAP PO SCH ×3 (09:02→21:34)
[2016-09-01] MEDS: SENNOSIDES/DOCUSATE SODIUM TAB PO SCH ×2 (09:03→21:28)
--- NOTE | 2016-09-01 11:37 | PDINTPN ---
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 Upper extremities affected more than the lower extremities. Neuro surgery is following. Off Levophed since late yesterday. On Neurontin for associated pain and hypersensitivity. Diabetes: On oral agents and sliding scale insulin. Blood sugars better with sliding scale coverage an increased Lantus. Penile discoloration: Nontender. Looks like he sustained some mild trauma to the end of his penis. Question related to his fall previously? Could be related to norepinephrine however he has no other areas suggestive of ischemia. Plan: Continue neuro monitoring in ICU. D/c norepinephrine. Will titrate blood pressure with Franki-Synephrine. Will need cervical spine surgery at some point for decompression. Tentatively scheduled for the . Per Neurosurgery. Will follow laboratory intermittently. Continue insulin by sliding scale and oral agents. Cont Lantus. Continue Lovenox prophylactically. Discussed with nursing, the patient and his , and the ICU multi disciplinary team. 25 minutes of critical care time was spent directly with the patient. Subjective: Doing well, about the same as yesterday or better. In good spirits. Complains of some penile discoloration. Strength appears to be subjectively a little better. Back on Levophed, low-dose. Objective: Vital Signs Temp Pulse Resp BP Pulse Ox 36.7 C 76 20 161/90 H 96 09/01/16 08:00 09/01/16 10:00 09/01/16 10:00 09/01/16 10:00 09/01/16 10:00 Laboratory Results 08/30/16 06:15 08/30/16 06:15 08/31/16 09/01/16 09/02/16 05:59 05:59 05:59 Intake Total 2295 2718 Output Total 3025 1470 500 Balance -730 1248 -500 PT 12.5 SEC (12.0-15.0) 08/26/16 12:38 INR 0.94 (0.83-1.16) 08/26/16 12:38 Physical Exam - Physical Exam General Appearance: alert, no apparent distress EENT: PERRL/EOMI, other (On room air) Neck: other (Hard collar in place) Respiratory: lungs clear Cardiac/Chest: regular rate, rhythm Abdomen: normal bowel sounds, non-tender, soft Male Genitalia: other (Some discoloration, with some ecchymosis and erythematous areas on the end of his penis. Nontender. No drainage.) Skin: warm/dry, pallor Lymphatic: no adenopathy Extremities: swelling (Hands modestly swollen.), No pedal edema Neuro/Psych: motor weakness (About the same to somewhat improved. Seems to be moving his left hand a little more.), sensory deficit (Persistent pain upper extremities, overall improved), No no motor/sensory deficits, No cognition abnormalities ICD10 Worksheet Patient Problems: Problems Problem Status Diagnosed Central cord syndrome Acute Cervical spinal cord injury Acute
[2016-09-01] MEDS ORDERED: PHENYLEPHRINE HCL 50 MG in D5W 250 ML IV SCH (12:00)
[2016-09-01] MEDS: NS 1,000 ML IV SCH (14:40)
[2016-09-01] MEDS: INSULIN GLARGINE 100 UNITS/ML SYRINGE SC SCH (23:17)
[2016-09-02 04:50] LABS: ANION GAP 6 mEq/L (8-16); CALCIUM 9.8 mg/dL (8.5-10.4); CARBON DIOXIDE 26 mEq/l (22-31); CHLORIDE 107 mEq/L (97-110); CREATININE 0.6 mg/dL (0.7-1.3); GLOMERULAR FILTRATION RATE > 60; GLUCOSE 83 mg/dL (70-100); SODIUM 139 mEq/L (134-144)
[2016-09-02] MEDS: GABAPENTIN 100 MG CAP PO SCH ×3 (08:15→21:12)
[2016-09-02] MEDS: ENOXAPARIN 40 MG/0.4 ML SYR SC SCH (08:15)
[2016-09-02] MEDS: metFORMIN HCL 500 MG TAB PO SCH ×2 (08:16→17:54)
[2016-09-02] MEDS: SENNOSIDES/DOCUSATE SODIUM TAB PO SCH ×2 (08:16→20:40)
[2016-09-02] MEDS: GLIMEPIRIDE 2 MG TAB PO SCH (08:16)
[2016-09-02] MEDS: INSULIN REGULAR, HUMAN 100 UNIT/1 ML VIAL STANDARD SC SCH ×3 (08:17→17:54)
--- NOTE | 2016-09-02 10:02 | NEUSURGPN ---
Assessment/Plan: 70 yo male s/p fall with central cord syndrome and ongoing pain in bilateral upper ext L>R Stop pushing MAPs tonight. Continue ICU today activity as tolerated with assistance Hard collar D/W Dr. Dwyer Subjective: in bedside recliner, comfortable, good spirits. 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 and generalized left arm weakness, ambulatory - Physician Discussed Patient with Dr.: Other (Yuliya) Neurosurgery Physical Exam - Vitals, I&O, Labs I and O 09/01/16 09/02/16 09/03/16 05:59 05:59 05:59 Intake Total 2718 3040.3 Output Total 1470 3600 Balance 1248 -559.7 Intake: Oral (ml) 500 600 IV Infused (ml) 2218 2440.3 Norepinephrine Bitartrate 20 68 4 mg In D5w 500 ml @ Titrate IV CONT LAILA Rx#: [id number] Ns 1,000 ml @ 100 mls/hr 2198 2340 IV CONT LAILA Rx#: [id number] Phenylephrine HCl 50 mg 32.3 In D5w 250 ml @ Titrate IV CONT LAILA Rx#: [id number] Output: Urine (ml) 1470 3600 Urinal 770 3300 Bedside Commode 700 300 Other: Number of Voids Urinal 4 1 Bedside Commode 1 Number of Stools Bedside Commode 1 Vital Signs Temp Pulse Resp BP Pulse Ox 37 C 68 20 132/62 H 98 09/02/16 07:00 09/02/16 08:00 09/02/16 08:00 09/02/16 08:00 09/02/16 08:00 Laboratory Results 08/30/16 06:15 09/02/16 04:20 ICD10 Worksheet Patient Problems: Problems Problem Status Diagnosed Central cord syndrome Acute Cervical spinal cord injury Acute
[2016-09-02] MEDS: NS 1,000 ML IV SCH (10:42)
--- NOTE | 2016-09-02 11:52 | PDINTPN ---
Clock Maker Progress Note Assessment/Plan: Assessment: Status post cervical spine injury, with transient quadriplegia, now improving slowly. Upper extremities affected more than the lower extremities. Neuro surgery is following. Remains on pressors to keep mean arterial pressure greater than 85. These can be stopped after today, now 1 week out. On Neurontin for associated pain and hypersensitivity. Diabetes: On oral agents and sliding scale insulin. Blood sugars better with sliding scale coverage an increased Lantus. However, glucose is low this morning. Will stop Lantus. Penile discoloration: Nontender. Looks like he sustained some mild trauma to the end of his penis. Question related to his fall previously? Could be related to norepinephrine however he has no other areas suggestive of ischemia. Plan: Continue neuro monitoring in ICU. Cont Franki-Synephrine as needed. For cervical spine surgery for decompression, scheduled for the . Per Neurosurgery. Will follow laboratory intermittently. Continue insulin by sliding scale and oral agents. D/c Lantus. Continue Lovenox prophylactically. Discussed with nursing, the patient and his , and the ICU multi disciplinary team. 25 minutes of critical care time was spent directly with the patient. Subjective: No changes. Weakness, pain persists, overall better but about the same as yesterday. He remains on Franki-Synephrine. Objective: Vital Signs Temp Pulse Resp BP Pulse Ox 37 C 76 20 150/69 H 97 09/02/16 07:00 09/02/16 10:00 09/02/16 10:00 09/02/16 10:00 09/02/16 10:00 Laboratory Results 08/30/16 06:15 09/02/16 04:20 09/01/16 09/02/16 09/03/16 05:59 05:59 05:59 Intake Total 2718 3040.3 Output Total 1470 3600 Balance 1248 -559.7 PT 12.5 SEC (12.0-15.0) 08/26/16 12:38 INR 0.94 (0.83-1.16) 08/26/16 12:38 Physical Exam - Physical Exam General Appearance: alert, no apparent distress EENT: PERRL/EOMI, other (On room air) Neck: other (Hard collar in place) Respiratory: lungs clear, decreased breath sounds (At the bases) Cardiac/Chest: regular rate, rhythm Abdomen: normal bowel sounds, non-tender, soft Male Genitalia: other (Using urinal) Skin: warm/dry, pallor Lymphatic: no adenopathy Extremities: No pedal edema Neuro/Psych: motor weakness (No real changes in upper extremity strength.), sensory deficit (Unchanged upper extremity pain and sensory changes.), No no motor/sensory deficits, No cognition abnormalities ICD10 Worksheet Patient Problems: Problems Problem Status Diagnosed Central cord syndrome Acute Cervical spinal cord injury Acute
[2016-09-03] MEDS: metFORMIN HCL 500 MG TAB PO SCH ×2 (07:39→17:33)
[2016-09-03] MEDS: ENOXAPARIN 40 MG/0.4 ML SYR SC SCH (07:40)
[2016-09-03] MEDS: GABAPENTIN 100 MG CAP PO SCH ×3 (07:40→21:05)
[2016-09-03] MEDS: GLIMEPIRIDE 2 MG TAB PO SCH (07:40)
[2016-09-03] MEDS: INSULIN REGULAR, HUMAN 100 UNIT/1 ML VIAL STANDARD SC SCH ×3 (10:30→17:33)
[2016-09-03] MEDS: SENNOSIDES/DOCUSATE SODIUM TAB PO SCH ×2 (10:31→22:08)
--- NOTE | 2016-09-03 12:31 | NEUSURGPN ---
Assessment/Plan: 70 yo male s/p fall with central cord syndrome and ongoing pain in bilateral upper ext L>R Med/surg status activity as tolerated with assistance Hard collar Surgery with Dr. Holloway likely Sunday Hold Sunday Lovenox dose D/W Dr. Dwyer Subjective: awake, alert, comfortable. 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/intrinsics ambulatory Urinary Catheter in Place: No - Physician Discussed Patient with Dr.: Other (Yuliya) Neurosurgery Physical Exam - Vitals, I&O, Labs I and O 09/02/16 09/03/16 09/04/16 05:59 05:59 05:59 Intake Total 3040.3 3415 360 Output Total 3600 2750 300 Balance -559.7 665 60 Intake: Oral (ml) 600 1150 360 IV Infused (ml) 2440.3 2265 Norepinephrine Bitartrate 68 4 mg In D5w 500 ml @ Titrate IV CONT LAILA Rx#: [id number] Ns 1,000 ml @ 100 mls/hr 2340 2234 IV CONT LAILA Rx#: [id number] Phenylephrine HCl 50 mg 32.3 31 In D5w 250 ml @ Titrate IV CONT LAILA Rx#: [id number] Output: Urine (ml) 3600 2750 300 Urinal 3300 2750 300 Bedside Commode 300 Other: Number of Voids Urinal 1 3 Number of Stools Bedside Commode 1 Vital Signs Temp Pulse Resp BP Pulse Ox 36.6 C 78 16 132/64 H 96 09/03/16 12:00 09/03/16 12:00 09/03/16 12:00 09/03/16 12:00 09/03/16 12:00 Laboratory Results 08/30/16 06:15 09/02/16 04:20 ICD10 Worksheet Patient Problems: Problems Problem Status Diagnosed Central cord syndrome Acute Cervical spinal cord injury Acute
--- NOTE | 2016-09-03 13:16 | SOAPPROG ---
SOAP Progress Note Assessment/Plan: Assessment: Status post cervical spine injury, with transient quadriplegia, now improving slowly. Upper extremities affected more than the lower extremities. Neuro surgery is following. Off pressors. On Neurontin for associated pain and hypersensitivity. Diabetes: On oral agents and sliding scale insulin. Blood sugars better. On sliding scale coverage. Penile discoloration: Improved. Possibly secondary to norepinephrine?. Looks good now. Plan: Can transfer to a medical surgical bed. For cervical spine surgery for decompression, scheduled for the . Per Neurosurgery. Will follow laboratory intermittently. Continue insulin by sliding scale and oral agents. Continue Lovenox prophylactically. Check ultrasound of left upper extremity. Discussed with nursing, the patient and his . 25 minutes spent directly with the patient. Subjective: Doing well, about the same regarding neurologic status Objective: Vital Signs Temp Pulse Resp BP Pulse Ox 36.6 C 78 16 132/64 H 96 09/03/16 12:00 09/03/16 12:00 09/03/16 12:00 09/03/16 12:00 09/03/16 12:00 Laboratory Results 08/30/16 06:15 09/02/16 04:20 09/02/16 09/03/16 09/04/16 05:59 05:59 05:59 Intake Total 3040.3 3415 360 Output Total 3600 2750 300 Balance -559.7 665 60 PT 12.5 SEC (12.0-15.0) 08/26/16 12:38 INR 0.94 (0.83-1.16) 08/26/16 12:38 Physical Exam - Physical Exam General Appearance: alert, no apparent distress EENT: PERRL/EOMI, other (On room air) Neck: other (Hard collar in place) Respiratory: lungs clear, decreased breath sounds Cardiac/Chest: regular rate, rhythm Abdomen: normal bowel sounds, non-tender, soft Skin: warm/dry, pallor Extremities: swelling (Left upper extremity/hand, appears to be increased today. Little edema in the right upper extremity.) Neuro/Psych: alert, sensory deficit (About the same), No no motor/sensory deficits (Unchanged last 48 hours to slightly improved), No cognition abnormalities ICD10 Worksheet Patient Problems: Problems Problem Status Diagnosed Central cord syndrome Acute Cervical spinal cord injury Acute
--- NOTE | 2016-09-03 16:17 | US ---
Ultrasound Venous Duplex/Doppler left upper extremity History: Pain and swelling. Technique: Sonographic evaluation of the left upper extremity deep venous system was performed utiliz ing compression and augmentation along with pulsed and color flow Doppler investigation. Findings: The left jugular vein and innominate vein are nonvisible due to the presence of a cervical collar. The left subclavian vein is widely patent. The axillary vein is patent. Basilic, brachial, radial, an d ulnar veins are patent as is the cephalic vein. Impression: 1. Negative left upper extremity venous Doppler examination. Nonvisualization of the jugular and inno minate vein secondary to the presence of a cervical collar.
[2016-09-03] MEDS ORDERED: hydrALAZINE 20 MG/ML VIAL IVP ONE (23:30)
[2016-09-04] MEDS: ALTEPLASE 2 MG VIAL IVP PRN (04:37)
[2016-09-04] MEDS: metFORMIN HCL 500 MG TAB PO SCH ×2 (08:32→18:43)
[2016-09-04] MEDS: INSULIN REGULAR, HUMAN 100 UNIT/1 ML VIAL STANDARD SC SCH ×3 (08:32→18:43)
[2016-09-04] MEDS: GABAPENTIN 100 MG CAP PO SCH ×3 (08:33→21:09)
[2016-09-04] MEDS: ENOXAPARIN 40 MG/0.4 ML SYR SC SCH (08:33)
[2016-09-04] MEDS: SENNOSIDES/DOCUSATE SODIUM TAB PO SCH ×2 (09:31→21:09)
[2016-09-04] MEDS: GLIMEPIRIDE 2 MG TAB PO SCH (10:59)
--- NOTE | 2016-09-04 11:48 | NEUSURGPN ---
Assessment/Plan: 70 yo male s/p fall with central cord syndrome and ongoing pain in bilateral upper ext L>R activity as tolerated with assistance Hard collar Surgery with Dr. Holloway tomorrow 09/05 at 12:15. ACDF C3-6 Lovenox held after am dose today for surgery NPO after midnight Preop orders/labs in Will try and get consents signed later today D/W Dr. Holloway Subjective: awake, alert, comfortable. Ongoing L>R arm pain/weakness, no worsening symptoms. Objective: Left arm/hand weakness 4/5, 2/5 texturing machine fixer/extensors/intrinsic Right arm- 5/5 except texturing machine fixer 3/5/extensors/intrinsic Hyperesthesias BUE worse in hands BLE 5/5= Negative clonus ambulatory - Physician Discussed Patient with : [facility] Physical Exam - Vitals, I&O, Labs I and O 09/03/16 09/04/16 09/05/16 05:59 05:59 05:59 Intake Total 3415 950 Output Total 2750 2350 350 Balance 665 -1400 -350 Intake: Oral (ml) 1150 950 IV Infused (ml) 2265 Ns 1,000 ml @ 100 mls/hr 2234 IV CONT LAILA Rx#: [id number] Phenylephrine HCl 50 mg 31 In D5w 250 ml @ Titrate IV CONT LAILA Rx#: [id number] Output: Urine (ml) 2750 2350 350 Urinal 2750 1350 350 Bedside Commode 1000 Other: Intake Quantity Yes Sufficient Number of Voids Urinal 3 1 1 Number of Stools Bedside Commode 1 Vital Signs Temp Pulse Resp BP Pulse Ox 37.2 C 84 16 119/62 95 09/04/16 08:01 09/04/16 08:01 09/04/16 08:01 09/04/16 08:01 09/04/16 08:01 Laboratory Results 08/30/16 06:15 09/02/16 04:20 ICD10 Worksheet Patient Problems: Problems Problem Status Diagnosed Central cord syndrome Acute Cervical spinal cord injury Acute
[2016-09-05] MEDS: GABAPENTIN 100 MG CAP PO SCH ×3 (08:43→21:17)
[2016-09-05] MEDS: GLIMEPIRIDE 2 MG TAB PO SCH (08:44)
[2016-09-05] MEDS: SENNOSIDES/DOCUSATE SODIUM TAB PO SCH ×2 (08:44→20:23)
[2016-09-05] MEDS: metFORMIN HCL 500 MG TAB PO SCH ×2 (08:44→18:01)
[2016-09-05] MEDS: NS 1,000 ML IV SCH (08:58)
[2016-09-05] MEDS: INSULIN REGULAR, HUMAN 100 UNIT/1 ML VIAL STANDARD SC SCH ×3 (08:59→18:07)
[2016-09-05] MEDS ORDERED: SKIN ADHESIVE (DERMABOND) 1 EACH TP ONE (10:55)
[2016-09-05] MEDS ORDERED: THROMBIN (RECOMBINANT) 5,000 UNIT VIAL TP ONE (10:55)
[2016-09-05] MEDS ORDERED: SURGIFLO MATRIX KIT WITH THROMBIN TP ONE ×3 (10:55→14:52)
[2016-09-05] MEDS ORDERED: BUPIVACAINE/EPI 0.25% 30 ML SDV ONE (10:55)
[2016-09-05] MEDS ORDERED: BACITRACIN 50,000 UNITS/10 ML SYR IRR ONE (10:56)
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
[2016-09-05] MEDS ORDERED: PROPOFOL/EMULSION 500 MG/50 ML BOTTLE IV ONE ×2 (12:23)
[2016-09-05] MEDS ORDERED: DEXAMETHASONE 4 MG/ML VIAL ONE ×2 (12:24)
[2016-09-05] MEDS ORDERED: LIDOCAINE 2% 5 ML SDV ONE (12:25)
[2016-09-05] MEDS ORDERED: ROCURONIUM 50 MG/5 ML VIAL ONE (12:28)
[2016-09-05] MEDS ORDERED: SUCCINYLCHOLINE CHLORIDE*ANESTHESIA ONLY*200 MG/10 ML SYR IVP ONE (12:29)
[2016-09-05] MEDS ORDERED: REMIFENTANIL HCL 1 MG VIAL ONE (12:48)
[2016-09-05] MEDS ORDERED: fentaNYL 100 MCG/2 ML INJ ONE ×2 (12:49)
[2016-09-05] MEDS ORDERED: epHEDrine SULFATE 10 MG/ML SYR ONE ×2 (14:06→14:07)
[2016-09-05] MEDS ORDERED: THROMBIN (RECOMBINANT) 20,000 UNIT VIAL TP ONE (14:56)
[2016-09-05] MEDS ORDERED: INSULIN REGULAR HUMAN 100 UNIT/ML ONE (15:07)
[2016-09-05] MEDS ORDERED: PHENYLEPHRINE HCL 100 MCG/ML SYR ONE (15:19)
[2016-09-05] MEDS ORDERED: PROPOFOL 200 MG/20 ML VIAL ONE (16:01)
[2016-09-05] MEDS ORDERED: ONDANSETRON 4 MG/2 ML VIAL ONE (16:21)
[2016-09-05] MEDS ORDERED: ONDANSETRON DISINTEGRATING 4 MG TAB PO PRN (16:48)
[2016-09-05] MEDS ORDERED: ACETAMINOPHEN 325 MG TAB PO PRN (16:48)
[2016-09-05] MEDS ORDERED: diphenhydrAMINE 25 MG CAP PO PRN (16:48)
[2016-09-05] MEDS ORDERED: METHOCARBAMOL 750 MG TAB PO PRN (16:48)
--- NOTE | 2016-09-05 17:16 | POSTOPPROG ---
Post Op Note Date of Operation: 09/05/16 Surgeon: Birdie Holloway Position Description Manager: Ruth Trivedi PA-C Anesthesia: GET(General Endotracheal) Pre-op Diagnosis: central cord syndrome, cervical stenosis Post-op Diagnosis: central cord syndrome, cervical stensis Procedure: ACDF C3-6, C4 corpectomy, anterior plating C3-6 Inf/Abcess present in the surg proc area at time of surgery?: No Depth: Deep Incisional (Fascial) EBL: 100-500 Complications: none Drains: Wilian Smith Plan Plan: 70 yo male s/p C4 corpectomy, ACDF C5/6, anterior plating C3-6 - neuro checks - pain control - advance diet as tolerated - PT/OT/ST - JUNO x 1 - hard collar - postop C-spine x-rays in am - Lovenox to start POD#3 Postop Exam Awake. Alert. PERRL. Following commands No movement left UE throughout 5/5 LE strength
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
[2016-09-05] MEDS: oxyCODONE IR 5 MG TAB PO PRN (20:21)
[2016-09-05] MEDS: DIAZEPAM 5 MG TAB PO PRN (20:22)
[2016-09-06] MEDS: oxyCODONE IR 5 MG TAB PO PRN ×3 (00:11→12:23)
[2016-09-06] MEDS: NS 1,000 ML IV SCH ×2 (00:11→09:45)
[2016-09-06] MEDS: DIAZEPAM 5 MG TAB PO PRN ×2 (04:44→12:22)
[2016-09-06 05:11] LABS: % IMMATURE GRANULYOCYTES 0.2 % (0.0-1.1); ABSOLUTE IMMATURE GRANULOCYTES 0.03 10^3/uL (0.00-0.10); ADD DIFF? NO; ADD MORPH? NO; ADD SCAN? NO; ATYPICAL LYMPHOCYTE FLAG 0 (0-99); FRAGMENT RBC FLAG 0 (0-99); HEMATOCRIT 29.9 % (40.0-51.0); HEMOGLOBIN 10.4 g/dL (13.7-17.5); LEFT SHIFT FLG 10 (0-99); LIPEMIA HEMOLYSIS FLAG 90 (0-99); MEAN CELL HEMOGLOBIN 31.5 pg (27.9-34.1); MEAN CELL HEMOGLOBIN CONCENTR. 34.8 g/dL (32.4-36.7); MEAN CELL VOLUME 90.6 fL (81.5-99.8); MEAN PLATELET VOLUME 9.3 fL (8.7-11.7); PLATELET CLUMPS FLAG 0 (0-99); PLATELET COUNT 380 10^3/uL (150-400); RED CELL DISTRIBUTION WIDTH 12.9 % (11.5-15.2)
[2016-09-06 05:20] LABS: ANION GAP 6 mEq/L (8-16); CALCIUM 9.6 mg/dL (8.5-10.4); CARBON DIOXIDE 27 mEq/l (22-31); CHLORIDE 101 mEq/L (97-110); CREATININE 0.8 mg/dL (0.7-1.3); GLOMERULAR FILTRATION RATE > 60; GLUCOSE 221 mg/dL (70-100); POTASSIUM 4.6 mEq/L (3.5-5.2); SODIUM 134 mEq/L (134-144)
--- NOTE | 2016-09-06 08:17 | GPROG ---
[f rep st] PROGRESS NOTE SUBJECTIVE: The patient is a 70-year-old male, who is status post ACDF C3-C6 with corpectomy at C4. He had a restful night. He states his strength has improved in his arms, numbness and tingling th at he had and dysesthetic pain in the left arm has dramatically improved as well. He is able to mov e his left arm unlike prior to surgery. OBJECTIVE: The patient is awake, alert, and oriented to name, place, location, date, time, and situ ation. Pupils are equal, round, and reactive to light. EOMs intact. Cranial nerves 2-12 are gross ly intact. He follows commands appropriately. The patient is able to move his left upper extremity and finger appose a bit with thumb and index, thumb and long finger and is nearly able to lift his arm up off the bed on the left side. He has good strength 5/5 in bilateral lower extremities. Righ t upper extremity is globally 4/5. An incision is clean, dry, and intact. Neck is soft and supple. ASSESSMENT AND PLAN: The patient is a 70-year-old gentleman who is status post a C4 corpectomy with ACDF at 5-6 and anterior plating from C3-C6. We will continue with neuro checks. Pain control. W e will try to advance his diet appropriately. We will continue with PT, OT, and speech. He has JUNO in place. We will continue with this as well. He should wear a hard collar at all times. Postoper ative x-rays are pending today. Lovenox is written to start on postop day #3. I did review this wi th his . We went over his treatment plan and course and they are in agreement. /[id number]/MODL
[2016-09-06] MEDS: GABAPENTIN 100 MG CAP PO SCH ×2 (08:56→19:18)
[2016-09-06] MEDS: GLIMEPIRIDE 2 MG TAB PO SCH (08:56)
[2016-09-06] MEDS: metFORMIN HCL 500 MG TAB PO SCH ×2 (08:56→20:07)
[2016-09-06] MEDS: INSULIN REGULAR, HUMAN 100 UNIT/1 ML VIAL STANDARD SC SCH ×3 (09:03→19:25)
[2016-09-06] MEDS: SENNOSIDES/DOCUSATE SODIUM TAB PO SCH (12:07)
[2016-09-06] MEDS: SENNOSIDES 17.6 MG/10 ML UDL - IF LIQUID ORDERED PO SCH ×2 (12:13→20:08)
[2016-09-06] MEDS ORDERED: GABAPENTIN 250 MG/5 ML 30 ML BOTTLE PO SCH (16:00)
--- NOTE | 2016-09-06 17:45 | SOAPPROG ---
SOAP Progress Note Assessment/Plan: Assessment: Chest pressure, difficulty breathing: Will get stat CT for prevertebral edema keep upright continuous pulse ox troponins and CK O2 Call for change in O2 sat Plan: 09/06/16 17:43 Subjective: states he has cough, chest pressure and SOB no arm pain, no stridor, difficulty with secretions Objective: Vital Signs Temp Pulse Resp BP Pulse Ox 37.8 C 111 H 18 148/84 H 95 09/06/16 17:02 09/06/16 17:02 09/06/16 17:02 09/06/16 17:02 09/06/16 17:02 Laboratory Results 09/06/16 04:50 09/06/16 04:50 09/05/16 09/06/16 09/07/16 05:59 05:59 05:59 Intake Total 500 3230 Output Total 1350 1525 500 Balance -850 1705 -500 PT 12.5 SEC (12.0-15.0) 08/26/16 12:38 INR 0.94 (0.83-1.16) 08/26/16 12:38 no stridor, vocal fullness, maintaining airway, tachycardic - Pending Discharge Pending Discharge Within 24 Hours: No Pending Discharge Within 48 Hours: No ICD10 Worksheet Patient Problems: Problems Problem Status Onset Central cord syndrome Acute Cervical spinal cord injury Acute
--- NOTE | 2016-09-06 17:57 | CPEKG ---
Heart Rate: 118 RR Interval: 508 QRSD Interval: 76 QT Interval: 280 QTC Interval: 393 QRS [place]: 88 T Wave [place]: -81 EKG Severity - ABNORMAL ECG - EKG Impression: Sinus tachycardia EKG Impression: BORDERLINE RIGHT AXIS DEVIATION EKG Impression: NONSPECIFIC REPOL ABNORMALITY, LATERAL LEADS Electronically Signed By: Sean Mccord 06-Sep-2016 19:53:22
[2016-09-06 18:07] LABS: % IMMATURE GRANULYOCYTES 0.6 % (0.0-1.1); ABSOLUTE IMMATURE GRANULOCYTES 0.08 10^3/uL (0.00-0.10); ADD DIFF? NO; ADD MORPH? NO; ADD SCAN? NO; ATYPICAL LYMPHOCYTE FLAG 0 (0-99); FRAGMENT RBC FLAG 0 (0-99); HEMATOCRIT 31.2 % (40.0-51.0); HEMOGLOBIN 10.7 g/dL (13.7-17.5); LEFT SHIFT FLG 10 (0-99); LIPEMIA HEMOLYSIS FLAG 90 (0-99); MEAN CELL HEMOGLOBIN 31.3 pg (27.9-34.1); MEAN CELL HEMOGLOBIN CONCENTR. 34.3 g/dL (32.4-36.7); MEAN CELL VOLUME 91.2 fL (81.5-99.8); MEAN PLATELET VOLUME 8.9 fL (8.7-11.7); PLATELET CLUMPS FLAG 0 (0-99); PLATELET COUNT 405 10^3/uL (150-400); RED BLOOD CELL COUNT 3.42 10^6/uL (4.40-6.38); RED CELL DISTRIBUTION WIDTH 13.2 % (11.5-15.2)
[2016-09-06 18:32] LABS: TROPONIN I < 0.012 ng/mL (0-0.034)
[2016-09-06 18:39] LABS: CREATINE KINASE-MB FRACTION < 0.22 ng/mL (0-3.19)
[2016-09-06] MEDS ORDERED: DEXAMETHASONE 10 MG/ML VIAL IVP ONE (18:51)
[2016-09-06] MEDS ORDERED: ACETAMINOPHEN 325 MG SUPP PR PRN (21:30)
[2016-09-06] MEDS ORDERED: ACETAMINOPHEN 650 MG SUPP PR ONE (21:44)
[2016-09-06 23:34] LABS: COLOR YELLOW; LEUKOCYTE ESTERASE,URINE NEGATIVE (NEGATIVE); NITRITE,URINE NEGATIVE (NEGATIVE)
[2016-09-07] MEDS: GABAPENTIN 100 MG CAP PO SCH ×4 (00:03→21:03)
[2016-09-07] MEDS: LORazepam 2 MG/ML INJ IVP PRN (01:50)
[2016-09-07] MEDS: SENNOSIDES 17.6 MG/10 ML UDL - IF LIQUID ORDERED PO SCH ×2 (08:27→21:03)
[2016-09-07] MEDS: metFORMIN HCL 500 MG TAB PO SCH ×2 (08:30→18:29)
[2016-09-07] MEDS: GLIMEPIRIDE 2 MG TAB PO SCH (08:31)
[2016-09-07] MEDS: oxyCODONE IR 5 MG TAB PO PRN (08:31)
[2016-09-07] MEDS: INSULIN REGULAR, HUMAN 100 UNIT/1 ML VIAL STANDARD SC SCH ×3 (08:32→18:28)
--- NOTE | 2016-09-07 14:17 | GPROG ---
[f rep st] PROGRESS NOTE NEUROSURGERY PROGRESS NOTE SUBJECTIVE: Patient is sitting in his chair. Denies any difficulties in breathing. States he stil l has a hoarse voice and difficulty swallowing. He states his left arm feels somewhat better after surgery but has continued to have burning and paresthesias in his left arm. He denies any chest trena n, shortness of breath or fever or chills. OBJECTIVE: VITAL SIGNS: Blood pressure 116/67, heart rate is 84, respiratory rate is 12, O2 sats 9 0% on room air, temperature is 36.7. Vital signs are stable. He is afebrile. GENERAL: Patient is in no acute distress. EXTREMITIES: Left upper extremity continues to be 3/5 in all muscle groups and has paresthesias distally in his arms greater than proximally. Bilateral lower extremities are 5/5 and equal in strength in all muscle groups. Sensation is intact to light touch over bilateral l ower/upper extremities, again has paresthesias in his upper extremities, in his left greater than ri ght upper extremity. LABORATORY DATA: White blood cell count 14.18, red blood cell count 3.42, hemoglobin 10.7, hematocr it 31.2, platelets 405, CK-MB is less than 0.22. Troponins were less than 0.012. Urine was negativ e for infection. Blood cultures are currently pending. DIAGNOSTIC IMAGING REVIEW: An EKG was performed due to difficulty breathing and chest pain yesterda y evening and shows sinus tachycardia with borderline right axis deviation. A cervical spine CT was performed and shows recent postoperative changes from C2-C6 as detailed with improvement in the high-grade stenosis at these levels. There is persistent, bilateral neural foraminal stenosis. Dorsal disk osteophyte complex at C6-7 resulting in moderate, persistent central canal stenosis. Prevertebral edema hematoma resulting in some mass effect of the caudal posterior oropharynx and hyp opharynx with associated narrowing of the dorsal airway. A chest x-ray was performed, and this is a negative chest x-ray for any acute changes or consolidati ons. ASSESSMENT AND PLAN: This is a 70-year-old male who is postop day 2, status post an anterior cervic al diskectomy and fusion from C3-C6 with partial corpectomy at C4. Yesterday evening he began to denise ve more difficulty in breathing, and thus was transferred to the ICU for close observation. A CT sc an was performed that shows some prevertebral swelling, and the patient was given 10 mg of Decadron x1 in order to help with this. This morning he is not having any difficulty breathing, but does hav e expected hoarseness of his voice and continued difficulty swallowing. Will continue his care in t he step down unit for now to watch him closely. Please continue continuous pulse ox and O2 monitori ng. The patient should be continued to sit upright. He should continue to go to physical therapy, occupational therapy, and speech language pathology on his swallowing. Will continue to monitor blo od cultures for any signs of infection. All other fever workup consistent with this, and a chest x- ray, urine and lab work were negative. The patient was discussed with Dr. Holloway. His JUNO output i s 50 overnight, and will discuss possible removal of this drain today versus tomorrow. Any changes in his neuro or motor exam, please contact Neurosurgery immediately. /[id number]/MODL
--- NOTE | 2016-09-07 14:21 | PDINTPN ---
Lab Animal Technician Progress Note Assessment/Plan: Assessment/Plan: * Status post cervical spine injury, with transient quadriplegia, now improving slowly. Upper extremities affected more than the lower extremities. Neuro surgery is following. On Neurontin for associated pain and hypersensitivity. * Diabetes: On oral agents and sliding scale insulin. Blood sugars better. On sliding scale coverage. * Dysphagia-failed swallow eval. Ice chips only for now -if not better by tomorrow, would consider dobhoff and TF * Dyspnea-improved. Likely from neck swelling -follow Subjective: C/O neck pain. He is hungry Objective: Vital Signs Temp Pulse Resp BP Pulse Ox 36.7 C 85 16 120/58 L 96 09/07/16 08:00 09/07/16 12:19 09/07/16 12:19 09/07/16 12:19 09/07/16 12:19 Laboratory Results 09/06/16 17:55 09/06/16 04:50 09/06/16 09/07/16 09/08/16 05:59 05:59 05:59 Intake Total 3230 1876 Output Total 1525 1500 Balance 1705 376 PT 12.5 SEC (12.0-15.0) 08/26/16 12:38 INR 0.94 (0.83-1.16) 08/26/16 12:38 Physical Exam - Physical Exam General Appearance: alert, no apparent distress EENT: PERRL/EOMI, normal ENT inspection Neck: other (hard c-collar) Respiratory: chest non-tender, lungs clear, normal breath sounds Cardiac/Chest: normal peripheral pulses, regular rate, rhythm Peripheral Pulses: 2+: carotid (R), carotid (L), femoral (R), femoral (L), dorsalis-pedis (R), dorsalis-pedis (L) Abdomen: normal bowel sounds, non-tender, soft Male Genitalia: deferred Rectal: deferred ICD10 Worksheet Patient Problems: Problems Problem Status Onset Central cord syndrome Acute Cervical spinal cord injury Acute
[2016-09-08] MEDS: INSULIN REGULAR, HUMAN 100 UNIT/1 ML VIAL STANDARD SC SCH ×4 (08:38→20:25)
[2016-09-08] MEDS: GLIMEPIRIDE 2 MG TAB PO SCH (09:27)
[2016-09-08] MEDS: GABAPENTIN 100 MG CAP PO SCH (09:27)
[2016-09-08] MEDS: metFORMIN HCL 500 MG TAB PO SCH (09:28)
[2016-09-08] MEDS: SENNOSIDES 17.6 MG/10 ML UDL - IF LIQUID ORDERED PO SCH (09:28)
--- NOTE | 2016-09-08 10:54 | PDINTPN ---
Copy Center Associate Progress Note Assessment/Plan: Assessment/Plan: * Status post cervical spine injury, with transient quadriplegia, now improving slowly. Upper extremities affected more than the lower extremities. Neuro surgery is following. On Neurontin for associated pain and hypersensitivity. * Diabetes: On oral agents and sliding scale insulin. Blood sugars better. On sliding scale coverage. * Dysphagia-failed swallow eval. Ice chips only for now -video swallow today. If fails, will have IR place dobhoff * Dyspnea-improved. Likely from neck swelling -follow Subjective: Up in chair. Hungry Objective: Vital Signs Temp Pulse Resp BP Pulse Ox 36.7 C 87 17 152/86 H 98 09/08/16 07:55 09/08/16 07:55 09/08/16 07:55 09/08/16 07:55 09/08/16 07:55 Laboratory Results 09/06/16 17:55 09/06/16 04:50 09/07/16 09/08/16 09/09/16 05:59 05:59 05:59 Intake Total 1876 1728 Output Total 1500 1015 Balance 376 713 PT 12.5 SEC (12.0-15.0) 08/26/16 12:38 INR 0.94 (0.83-1.16) 08/26/16 12:38 Physical Exam - Physical Exam General Appearance: alert, no apparent distress EENT: PERRL/EOMI, normal ENT inspection Neck: full range of motion, No non-tender Respiratory: chest non-tender, lungs clear, normal breath sounds Cardiac/Chest: normal peripheral pulses, regular rate, rhythm Peripheral Pulses: 2+: carotid (R), carotid (L), femoral (R), femoral (L), dorsalis-pedis (R), dorsalis-pedis (L) Abdomen: normal bowel sounds, non-tender, soft Male Genitalia: deferred Rectal: deferred Skin: normal color, warm/dry Extremities: normal range of motion, non-tender, normal inspection, normal capillary refill ICD10 Worksheet Patient Problems: Problems Problem Status Onset Central cord syndrome Acute Cervical spinal cord injury Acute
[2016-09-08] MEDS ORDERED: FAMOTIDINE 20 MG/NACL 50 ML IV SCH (11:00)
[2016-09-08] MEDS ORDERED: D10W 1,000 ML IV PRN (12:08)
--- NOTE | 2016-09-08 12:46 | GPROG ---
[f rep st] PROGRESS NOTE NEUROSURGERY PROGRESS NOTE SUBJECTIVE: The patient states that he was able to get down some ice chips last night, and his voic e remains hoarse and he is very hungry. He is hoping to pass a swallow eval today to see if he is b luis to eat. He states that his left arm continues to get improved sensation after surgery with so me progress in his movement of his hands as well. He denies any shortness of breath, chest pain, or difficulty breathing. OBJECTIVE: VITAL SIGNS: Blood pressure 152/86, heart rate 87, respiratory rate 17, O2 sat is 98% o n room air. Temperature is 36.7. GENERAL: Patient is in no acute distress. His vital signs are s table. EXTREMITIES: His left upper extremity remains overall weaker than his right upper extremity . However, today he is able to sales vendor some with his left hand and has 3+/5 strength in his sales vendor as we ll as his biceps, triceps, and deltoid. His right upper extremity remains stronger than his left at 4/5 in all muscle groups. LABORATORY DATA: White blood cell count 14.18, red blood count 3.42, hemoglobin 10.7, hematocrit 31 .2, platelets 405. His glucose is 163. Urine is negative for infection, and urine culture prelimin delilah has no growth after 18 hours. Blood culture: No growth after 36 hours x2. JUNO drain output was 15, and we will remove this today. ASSESSMENT AND PLAN: This is a 70-year-old male who is status post ACDF, 3-6, with partial corpecto my at C4. The patient remains n.p.o. due to not passing a swallowing eval. We will try one more ti me to pass a swallow eval today, and he will start advancing his diet, otherwise we will need to con superintendent car construction a Dobbhoff versus PEG. Fever workup and infectious workup remain negative so far with no grow th to date of any cultures. His white blood cell count is a little bit elevated this morning; howev er, this may be due to the recent steroids that he had. Continue physical therapy, occupational therapy, and speech therapy. JUNO drain to be removed today. We appreciate the critical care on board with this patient as well. The patient should continue to sit upright. If the patient remains stable and passes his speech eval today, we can also move him to the floor. The patient was discussed with Dr. Holloway. /[id number]/MODL
[2016-09-08 13:07] LABS: ALANINE AMINOTRANSFERASE 26 IU/L (21-72); ALBUMIN 3.1 g/dL (3.5-5.0); ALKALINE PHOSPHATASE 56 IU/L (38-126); ANION GAP 11 mEq/L (8-16); ASPARTATE AMINOTRANSFERASE 14 IU/L (17-59); BILIRUBIN,TOTAL 0.5 mg/dL (0.1-1.4); CALCIUM 9.8 mg/dL (8.5-10.4); CARBON DIOXIDE 24 mEq/l (22-31); CHLORIDE 103 mEq/L (97-110); CREATININE 0.7 mg/dL (0.7-1.3); GLOMERULAR FILTRATION RATE > 60; GLUCOSE 124 mg/dL (70-100); MAGNESIUM 1.8 mg/dL (1.6-2.3); POTASSIUM 4.2 mEq/L (3.5-5.2); SODIUM 138 mEq/L (134-144); TOTAL PROTEIN 5.9 g/dL (6.3-8.2); TRIGLYCERIDE 109 mg/dL (40-150)
[2016-09-08 14:17] LABS: % IMMATURE GRANULYOCYTES 0.4 % (0.0-1.1); ABSOLUTE IMMATURE GRANULOCYTES 0.04 10^3/uL (0.00-0.10); ADD DIFF? NO; ADD MORPH? NO; ADD SCAN? NO; ATYPICAL LYMPHOCYTE FLAG 0 (0-99); FRAGMENT RBC FLAG 0 (0-99); HEMATOCRIT 26.7 % (40.0-51.0); LEFT SHIFT FLG 10 (0-99); LIPEMIA HEMOLYSIS FLAG 80 (0-99); MEAN CELL HEMOGLOBIN 31.4 pg (27.9-34.1); MEAN CELL HEMOGLOBIN CONCENTR. 33.7 g/dL (32.4-36.7); MEAN PLATELET VOLUME 9.3 fL (8.7-11.7); PLATELET CLUMPS FLAG 0 (0-99); PLATELET COUNT 408 10^3/uL (150-400); RED BLOOD CELL COUNT 2.87 10^6/uL (4.40-6.38); RED CELL DISTRIBUTION WIDTH 13.2 % (11.5-15.2)
[2016-09-08 14:27] LABS: INR 1.11 (0.83-1.16); PROTIME(PATIENT) 14.2 SEC (12.0-15.0)
[2016-09-08] MEDS: NS 1,000 ML IV SCH ×2 (16:24)
[2016-09-08] MEDS: LORazepam 2 MG/ML INJ IVP PRN (17:57)
[2016-09-08] MEDS: DIAZEPAM 10 MG/2 ML SYR IVP PRN (18:49)
[2016-09-08] MEDS: ENOXAPARIN 40 MG/0.4 ML SYR SC SCH (20:24)
[2016-09-08] MEDS ORDERED: OLANZapine DISINTEGR 5 MG TAB PO PRN (21:44)
[2016-09-08] MEDS: TPN W/ FAMOTIDINE 1 EA BAG IV SCH (22:04)
[2016-09-09] MEDS: INSULIN REGULAR, HUMAN 100 UNIT/1 ML VIAL STANDARD SC SCH ×5 (01:24→23:08)
[2016-09-09 06:04] LABS: APTT 24.6 SEC (23.0-38.0); INR 1.09 (0.83-1.16)
[2016-09-09 06:08] LABS: % IMMATURE GRANULYOCYTES 0.3 % (0.0-1.1); ABSOLUTE IMMATURE GRANULOCYTES 0.04 10^3/uL (0.00-0.10); ADD DIFF? NO; ADD MORPH? NO; ADD SCAN? NO; ATYPICAL LYMPHOCYTE FLAG 0 (0-99); FRAGMENT RBC FLAG 0 (0-99); HEMATOCRIT 27.1 % (40.0-51.0); HEMOGLOBIN 9.4 g/dL (13.7-17.5); LEFT SHIFT FLG 10 (0-99); LIPEMIA HEMOLYSIS FLAG 90 (0-99); MEAN CELL HEMOGLOBIN 30.8 pg (27.9-34.1); MEAN CELL HEMOGLOBIN CONCENTR. 34.7 g/dL (32.4-36.7); MEAN CELL VOLUME 88.9 fL (81.5-99.8); MEAN PLATELET VOLUME 9.8 fL (8.7-11.7); PLATELET CLUMPS FLAG 10 (0-99); PLATELET COUNT 407 10^3/uL (150-400); RED BLOOD CELL COUNT 3.05 10^6/uL (4.40-6.38); RED CELL DISTRIBUTION WIDTH 12.7 % (11.5-15.2)
[2016-09-09 06:18] LABS: ALANINE AMINOTRANSFERASE 34 IU/L (21-72); ALBUMIN 3.1 g/dL (3.5-5.0); ALKALINE PHOSPHATASE 58 IU/L (38-126); ANION GAP 8 mEq/L (8-16); ASPARTATE AMINOTRANSFERASE 18 IU/L (17-59); BILIRUBIN,TOTAL 0.6 mg/dL (0.1-1.4); CALCIUM 9.5 mg/dL (8.5-10.4); CARBON DIOXIDE 25 mEq/l (22-31); CHLORIDE 103 mEq/L (97-110); CREATININE 0.6 mg/dL (0.7-1.3); GLOMERULAR FILTRATION RATE > 60; GLUCOSE 226 mg/dL (70-100); MAGNESIUM 1.7 mg/dL (1.6-2.3); POTASSIUM 3.6 mEq/L (3.5-5.2); SODIUM 136 mEq/L (134-144)
[2016-09-09] MEDS: ENOXAPARIN 40 MG/0.4 ML SYR SC SCH (10:03)
--- NOTE | 2016-09-09 12:44 | GPROG ---
[f rep st] PROGRESS NOTE SUBJECTIVE: The patient is lying in bed. Is somewhat restless. He states that his left arm contin ues to get better and has less pain in it this morning. He states he is hungry but understands the need for the PEG tube that was placed. OBJECTIVE: GENERAL: No acute distress. VITAL SIGNS: Stable. The patient is lying in bed, somewh at restless but calm. MENTAL STATUS: He is conversing appropriately. HEENT: His pupils are equal and react to light and accommodation. Extraocular muscles are intact. EXTREMITIES: Left upper ex tremity administrative personal assistant is 4-/5. All other muscle groups are 4+/5. Right upper extremity is 4+/5 in all muscl e groups. Sensation is intact bilaterally in all 4 extremities, and paresthesias are improving. Bi lateral lower extremities are 5/5 and equal in strength. LABORATORY DATA: White blood cell count 11.61, red blood cell count 3.05, hemoglobin 9.4, hematocri t 27.1. Platelets are 407. His INR is 1.09. APTT is 24.6, PT 14.0. Chemistry: Sodium 136, potas sium 3.6, chloride 103, CO2 25. Anion gap is 8. His phosphorus is 2. Total protein is 6.0, and al bumin is 3.1. ASSESSMENT/PLAN: This is a 70-year-old male who is status post ACDF C3 through 6 with partial corpe ctomy at C4. The patient became severely agitated yesterday evening after getting to the floor and became somewhat delirious and was combative to the nurses, as well as his . The patient did wilmer ntually calm down with some Zyprexa, and this morning is much more restful and is cognitively cleare r. This may have been due to several factors, could be from ICU delirium versus not eating for julissa ral days versus steroids. We will continue to monitor him. Dobhoff was placed yesterday, and tube feeds have started. Phosphorus is low and will consult Medicine today for ongoing care of his other medical issues. He will continue speech language pathology on swallowing evals in hopes to advance his diet p.o. His dyspnea is improving. Please continue PT, OT, speech language pathology. The p atient was discussed with Dr. Holloway. Postop x-rays show good hardware placement. Please call Brittany rosurgery with any changes in motor or neuro exam. Disposition planning: The patient will likely need a senior living facility and will continue to work on this. /[id number]/MODL
[2016-09-09] MEDS: NS 1,000 ML IV SCH (17:54)
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
[2016-09-09] MEDS: INSULIN GLARGINE 100 UNITS/ML SYRINGE SC SCH (21:12)
[2016-09-09] MEDS: TPN W/ FAMOTIDINE 1 EA BAG IV SCH (21:30)
[2016-09-10 04:05] LABS: % IMMATURE GRANULYOCYTES 0.3 % (0.0-1.1); ABSOLUTE IMMATURE GRANULOCYTES 0.03 10^3/uL (0.00-0.10); ADD DIFF? NO; ADD MORPH? NO; ADD SCAN? NO; ATYPICAL LYMPHOCYTE FLAG 0 (0-99); FRAGMENT RBC FLAG 0 (0-99); HEMATOCRIT 27.5 % (40.0-51.0); HEMOGLOBIN 9.4 g/dL (13.7-17.5); LEFT SHIFT FLG 10 (0-99); LIPEMIA HEMOLYSIS FLAG 90 (0-99); MEAN CELL HEMOGLOBIN 31.3 pg (27.9-34.1); MEAN CELL HEMOGLOBIN CONCENTR. 34.2 g/dL (32.4-36.7); MEAN CELL VOLUME 91.7 fL (81.5-99.8); MEAN PLATELET VOLUME 9.3 fL (8.7-11.7); PLATELET CLUMPS FLAG 0 (0-99); PLATELET COUNT 509 10^3/uL (150-400)
[2016-09-10 04:12] LABS: INR 1.06 (0.83-1.16); PROTIME(PATIENT) 13.7 SEC (12.0-15.0)
[2016-09-10 04:13] LABS: APTT 30.3 SEC (23.0-38.0)
[2016-09-10 04:46] LABS: ALANINE AMINOTRANSFERASE 29 IU/L (21-72); ALBUMIN 3.1 g/dL (3.5-5.0); ALKALINE PHOSPHATASE 56 IU/L (38-126); ANION GAP 8 mEq/L (8-16); ASPARTATE AMINOTRANSFERASE 20 IU/L (17-59); BILIRUBIN,TOTAL 0.4 mg/dL (0.1-1.4); CALCIUM 9.7 mg/dL (8.5-10.4); CARBON DIOXIDE 25 mEq/l (22-31); CHLORIDE 109 mEq/L (97-110); CREATININE 0.6 mg/dL (0.7-1.3); GLOMERULAR FILTRATION RATE > 60; GLUCOSE 108 mg/dL (70-100); POTASSIUM 3.5 mEq/L (3.5-5.2); SODIUM 142 mEq/L (134-144); TOTAL PROTEIN 6.3 g/dL (6.3-8.2)
[2016-09-10] MEDS: INSULIN REGULAR, HUMAN 100 UNIT/1 ML VIAL STANDARD SC SCH ×4 (05:57→23:38)
[2016-09-10] MEDS: ENOXAPARIN 40 MG/0.4 ML SYR SC SCH (09:18)
--- NOTE | 2016-09-10 12:36 | HOSPPROG ---
Hospitalist Progress Note Assessment/Plan: 70-year-old male presents emergency room with acute paralysis. This is my 1st encounter with the patient, chart reviewed. Reviewed the patient's care with Dr. Rush Velez. #Diabetes mellitus Lantus initiated on 09/09/2016 Blood glucose better today Patient on TPN #Dysphagia Acute postoperative complication Patient on TPN Dysphagia appears to be improving today Unclear of long-term plan Possible PEG tube placement # constipation Resolved #Disposition Unclear Continue management of dysphagia Subjective: Tearful today. Frustrated by situation. Wants to get up and walk. Frustrated by swallowing difficulties. Objective: Vital Signs Temp Pulse Resp BP Pulse Ox 37.2 C 83 16 138/82 H 95 09/10/16 08:48 09/10/16 08:48 09/10/16 08:48 09/10/16 08:48 09/10/16 08:48 Laboratory Results 09/10/16 03:40 09/10/16 03:40 09/09/16 09/10/16 09/11/16 05:59 05:59 05:59 Intake Total 2920 Output Total 1100 1545 Balance -1100 1375 PT 13.7 SEC (12.0-15.0) 09/10/16 03:40 INR 1.06 (0.83-1.16) 09/10/16 03:40 - Physical Exam Constitutional: no apparent distress, appears nourished, not in pain Eyes: PERRL, anicteric sclera, EOMI Ears, Nose, Mouth, Throat: moist mucous membranes, hearing normal, ears appear normal Cardiovascular: No JVD, No tachycardia, No edema Respiratory: no respiratory distress, no rales or rhonchi, reduced air movement Gastrointestinal: No tenderness, No ascites, No guarding Skin: warm, normal color, No erythema Musculoskeletal: no joint effusions, abnormal gait, generalized weakness Neurologic: AAOx3 Psychiatric: not anxious, not encephalopathic, thought process linear ICD10 Worksheet Patient Problems: Problems Problem Status Onset Central cord syndrome Acute Cervical spinal cord injury Acute
--- NOTE | 2016-09-10 15:47 | SOAPPROG ---
Downtime Inpatient MD Late Entry SOAP Note: Not a late note but an addendum to my previous progress note from today. Head CT ordered stat due to sudden onset of patient unable to follow commands or be aroused. Head CT read as normal, no intracranial hemorrhage or other changes. Spoke to RN about results and patient doing better now. Concern for continued delirium due to correction hospitalization/meds/lack of nutrition? Discussed results with DR. Kwan as well.
--- NOTE | 2016-09-10 16:33 | GPROG ---
[f rep st] PROGRESS NOTE NEUROSURGERY PROGRESS NOTE SUBJECTIVE: Patient is lying in bed. His states that he had some nightmares last night, but overall had a much better day yesterday and was able to walk some with PT with assistance. He denies any headache, shortness of breath. He does have some pain in his left arm continued, but this is getting overall much better. OBJECTIVE: VITAL SIGNS: Blood pressure 138/82, temperature 37.2, respiratory rate is 16, O2 sat is 95% on room air. GENERAL: The patient is in no acute distress. He is lying in bed. Patient is alert to self, but seems confused about why surgery was done and, in general, what happened. He has lots of questions about this, this morning, and does seem somewhat confused, but does orient easily. He is following commands. His left upper extremity continues to be 3/5 in all muscle groups. Right upper extremity is 4+ out of 5 in all muscle groups. Dysesthesias are diminishing in his left upper extremity and are better this morning. Bilateral lower extremities are 5/5 and equal strength in all muscle groups. The patient was complaining of some pain in his right lower calf with SCDs on. There is no swelling, edema, or redness noted in his right lower extremity. His incision is clean, dry, and intact with Steri-Strips over the incision and no evidence of drainage or swelling. LABORATORY DATA: White blood cell count 9.47, red blood cell count 3.0, hemoglobin 9.4, hematocrit 27.5, platelets are 509. Glucose is 198. ASSESSMENT AND PLAN: This is a 70-year-old male who is status post anterior cervical diskectomy and fusion 3 through 6 with partial corpectomy of C4. The patient remains n.p.o. due to not passing swallow evaluation, but he is currently receiving total parenteral nutrition for nutrition. We will continue to have Speech see him to repeat the swallow evaluation tomorrow in order to see if we can progress his diet. Patient does seem somewhat confused this morning, but does orient easily and did have some episodes of nightmares over the night. Did ask RN to decrease the amount of medication given and to give Tylenol only and decrease all narcotics, as this could be the reason for his confusion. I did also speak with the today about goals going forward in terms of rehab in the future. Patient should continue physical therapy, occupational therapy, and speech therapy. We appreciate the medicine service for being on board as well and helping with the care of this patient. Addendum:I did get a call from the RN at approximately 1:30 p.m. and stated that the patient had a sudden change in mental status and was suddenly very somnolent and was not arousable and was not following any commands. His vital signs remain stable at this time. A stat head CT has been ordered for this. We will look for results as soon as they are obtained. I did discuss this with Dr. Kwan as well. /[id number]/MODL MTDD
[2016-09-10] MEDS: INSULIN GLARGINE 100 UNITS/ML SYRINGE SC SCH (22:09)
[2016-09-10] MEDS: TPN W/ FAMOTIDINE 1 EA BAG IV SCH (22:09)
[2016-09-10] MEDS: DIAZEPAM 10 MG/2 ML SYR IVP PRN (23:38)
[2016-09-11 05:45] LABS: % IMMATURE GRANULYOCYTES 0.4 % (0.0-1.1); ABSOLUTE IMMATURE GRANULOCYTES 0.03 10^3/uL (0.00-0.10); ADD DIFF? NO; ADD MORPH? NO; ADD SCAN? NO; ATYPICAL LYMPHOCYTE FLAG 10 (0-99); FRAGMENT RBC FLAG 0 (0-99); HEMATOCRIT 27.3 % (40.0-51.0); HEMOGLOBIN 9.3 g/dL (13.7-17.5); LEFT SHIFT FLG 10 (0-99); LIPEMIA HEMOLYSIS FLAG 90 (0-99); MEAN CELL HEMOGLOBIN 31.2 pg (27.9-34.1); MEAN CELL HEMOGLOBIN CONCENTR. 34.1 g/dL (32.4-36.7); MEAN CELL VOLUME 91.6 fL (81.5-99.8); MEAN PLATELET VOLUME 9.1 fL (8.7-11.7); PLATELET CLUMPS FLAG 0 (0-99); PLATELET COUNT 467 10^3/uL (150-400); RED BLOOD CELL COUNT 2.98 10^6/uL (4.40-6.38); RED CELL DISTRIBUTION WIDTH 13.1 % (11.5-15.2)
[2016-09-11 05:46] LABS: INR 1.05 (0.83-1.16); PROTIME(PATIENT) 13.6 SEC (12.0-15.0)
[2016-09-11 05:47] LABS: APTT 30.2 SEC (23.0-38.0)
[2016-09-11] MEDS: INSULIN REGULAR, HUMAN 100 UNIT/1 ML VIAL STANDARD SC SCH ×3 (06:08→18:37)
[2016-09-11] MEDS: ALTEPLASE 2 MG VIAL IVP PRN (06:08)
[2016-09-11 06:12] LABS: ALANINE AMINOTRANSFERASE 36 IU/L (21-72); ALBUMIN 2.8 g/dL (3.5-5.0); ALKALINE PHOSPHATASE 58 IU/L (38-126); ANION GAP 5 mEq/L (8-16); ASPARTATE AMINOTRANSFERASE 36 IU/L (17-59); BILIRUBIN,TOTAL 0.4 mg/dL (0.1-1.4); CALCIUM 9.3 mg/dL (8.5-10.4); CARBON DIOXIDE 25 mEq/l (22-31); CHLORIDE 107 mEq/L (97-110); CREATININE 0.6 mg/dL (0.7-1.3); GLOMERULAR FILTRATION RATE > 60; GLUCOSE 172 mg/dL (70-100); MAGNESIUM 1.9 mg/dL (1.6-2.3); SODIUM 137 mEq/L (134-144); TOTAL PROTEIN 5.8 g/dL (6.3-8.2); TRIGLYCERIDE 71 mg/dL (40-150)
[2016-09-11] MEDS: ENOXAPARIN 40 MG/0.4 ML SYR SC SCH (08:25)
[2016-09-11] MEDS: DIAZEPAM 10 MG/2 ML SYR IVP PRN (08:27)
[2016-09-11] MEDS: GABAPENTIN 100 MG CAP PO SCH ×3 (10:41→21:19)
--- NOTE | 2016-09-11 11:45 | GPROG ---
[f rep st] PROGRESS NOTE DATE OF SERVICE: 09/11/2016 SUBJECTIVE: The patient had a good night's rest last night. states he does not have any night connors as he did the previous night. His swallowing is improving. He is having acute episodes of le ft arm pain this morning that are coming and going and are described as somewhat of a shooting pain. It could possibly be nerve pain. He denies any shortness of breath, any chest pain, any difficult y breathing. Per RN, he was working well with OT and PT yesterday. OBJECTIVE: VITAL SIGNS: Blood pressure 156/73, heart rate 79, respiratory rate 14, O2 saturation 9 5% on room air. GENERAL: The patient is alert and oriented x3. He is in no acute distress. NEURO LOGIC: His left upper extremity remains at 3+/5 in all muscle groups. Right upper extremity is 4+ out of 5 in all muscle groups. His sensation is intact to light touch. Does have continued slight paresthesias in the left upper extremity, but this is improving. Bilateral lower extremities are 5/ 5 and equal in strength. EXTREMITIES: No cyanosis or edema noted. No erythema or swelling noted. LABORATORY DATA: White blood cell count 7.7, red blood cell count 2.98, hemoglobin 9.3, hematocrit 27.3, platelets are 467. Coagulation studies: PT is 13.6, INR 1.05, APTT 30.2. Chemistry: Glucose is 172, sodium 137, potassium 4.0, chloride is 25, BUN is 11. ASSESSMENT AND PLAN: This is a 70-year-old male who is status post anterior cervical diskectomy and fusion with partial corpectomy at C4 that was performed by Dr. Birdie Holloway on September 05, 2016. The patient is doing well and stable. He did have an episode of extreme somnolence and was not resp onsive or following commands yesterday. Therefore, a stat head CT was obtained, but was read as nor mal. The patient then did perk up later in the afternoon. Will continue with physical therapy occu pational therapy. The patient has had waxing and waning episodes of agitation, delirium, confusion over this hospital stay, and it is possible that this was an episode of that, or that it is possible that the patient was extremely tired from not sleeping all night the night before, and he states he needed some rest. The patient should continue working with Physical Therapy and Occupational Thera py. Speech and Language Pathology should be around later today to re-do a swallow evaluation in the hope to advanced this patient's p.o. diet. We will continue to monitor this patient's progress and will add some gabapentin in order to help with some of the nerve pain he is still experiencing in h is left upper extremity. This patient was discussed Dr. Birdie Holloway. /[id number]/MODL
[2016-09-11] MEDS: NS 1,000 ML IV SCH ×2 (12:53→21:18)
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
[2016-09-11] MEDS ORDERED: ENALAPRILAT DIHYDRATE 1.25 MG/ML VIAL IVP PRN (15:42)
[2016-09-11] MEDS: INSULIN GLARGINE 100 UNITS/ML SYRINGE SC SCH (21:16)
[2016-09-11] MEDS: TPN W/ FAMOTIDINE 1 EA BAG IV SCH (21:18)
[2016-09-12] MEDS: INSULIN REGULAR, HUMAN 100 UNIT/1 ML VIAL STANDARD SC SCH ×4 (00:06→18:05)
[2016-09-12] MEDS: NS 1,000 ML IV SCH ×2 (05:36→18:05)
--- NOTE | 2016-09-12 08:01 | SOAPPROG ---
SOAP Progress Note Assessment/Plan: Assessment: 70 yo M sp C3/4, C4/5, C5/6 ACDF Plan: stable arm weakness remains the same continue hard collar at all times PT/OT/ST scd/zoila/lovenox for dvt prophylaxis dysphagia, npo and getting TPN, speech continues to see patient patient may need inpatient rehab please call with neuro changes discussed with Dr Holloway 08/28/16 07:24 08/31/16 07:28 08/31/16 07:32 09/12/16 07:57 Subjective: pt did not sleep well last night, sleepy this am. Objective: Vital Signs Temp Pulse Resp BP Pulse Ox 36.4 C 73 15 128/74 H 100 09/12/16 07:50 09/12/16 07:50 09/12/16 07:50 09/12/16 07:50 09/12/16 07:50 Microbiology 09/06/16 23:00 Blood Culture - Final Blood 09/06/16 23:00 Blood Culture - Final Blood Laboratory Results 09/11/16 05:26 09/11/16 05:26 09/11/16 09/12/16 09/13/16 05:59 05:59 05:59 Intake Total 5248 Output Total 1925 2810 Balance -1925 2438 PT 13.6 SEC (12.0-15.0) 09/11/16 05:26 INR 1.05 (0.83-1.16) 09/11/16 05:26 somnolent but smiles and open eyes to voice PERRL, no facial droop right arm 4/5, left arm 3/5 5/5 legs + light touch C/D/I ICD10 Worksheet Patient Problems: Problems Problem Status Onset Central cord syndrome Acute Cervical spinal cord injury Acute
[2016-09-12] MEDS: GABAPENTIN 100 MG CAP PO SCH (09:33)
[2016-09-12] MEDS: ENOXAPARIN 40 MG/0.4 ML SYR SC SCH (09:34)
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
[2016-09-12] MEDS: GABAPENTIN 300 MG CAP PO SCH ×2 (15:55→21:28)
[2016-09-12] MEDS: TPN W/ FAMOTIDINE 1 EA BAG IV SCH (21:22)
[2016-09-12] MEDS: INSULIN GLARGINE 100 UNITS/ML SYRINGE SC SCH (21:28)
[2016-09-13 04:55] LABS: ANION GAP 8 mEq/L (8-16); CALCIUM 10.5 mg/dL (8.5-10.4); CARBON DIOXIDE 27 mEq/l (22-31); CHLORIDE 105 mEq/L (97-110); CREATININE 0.6 mg/dL (0.7-1.3); GLOMERULAR FILTRATION RATE > 60; GLUCOSE 110 mg/dL (70-100); MAGNESIUM 2.1 mg/dL (1.6-2.3); POTASSIUM 4.4 mEq/L (3.5-5.2); SODIUM 140 mEq/L (134-144)
[2016-09-13] MEDS: DIAZEPAM 10 MG/2 ML SYR IVP PRN (05:42)
[2016-09-13] MEDS: NS 1,000 ML IV SCH ×2 (05:44→17:54)
[2016-09-13] MEDS: INSULIN REGULAR, HUMAN 100 UNIT/1 ML VIAL STANDARD SC SCH ×5 (05:44→23:46)
--- NOTE | 2016-09-13 08:16 | GPROG ---
[f rep st] PROGRESS NOTE NEUROSURGICAL INTERVAL SUMMARY NOTE. DATE OF SERVICE: 09/13/2016 SUBJECTIVE: The patient is lying in bed, awake and alert. He is comfortable. He did have some lef t-sided shoulder pain overnight which was alleviated with Valium. He has ongoing dysphagia and is r eceiving TPN. He notes improvement of strength and sensation in his left upper extremity with less burning in both arms and improved strength in his hand on the left side. OBJECTIVE: VITAL SIGNS: Blood pressure is 128/74, heart rate is 78, oxygen saturation is 95% on ro om air, temperature is 36.8. LAB RESULTS: Sodium is 140, potassium is 4.4, chloride 105, carbon dioxide 27, BUN 15, creatinine 0 .6. NEUROLOGIC EXAM: Patient is awake, alert, and oriented x4. He has full strength in the right upper extremity and bilateral lower extremities with 3+/5 strength in the left upper extremity in his del toid, biceps and 2/5 in his left finger intrinsics and extensors. Sensation is intact to light touc h in the bilateral upper and lower extremities. IMPRESSION: This is a 70-year-old male status post C3-4, C4-5 and C5-6 anterior cervical diskectomy and arthrodesis. He is wearing a hard cervical collar. His pain is well controlled. He notes imp rovement of the left upper extremity strength and improved hypersensitivity in his upper extremity s renee having surgery. He has ongoing dysphagia and is receiving TPN and speech continues to see this patient and evaluate him on a daily basis for swallowing ability. PLAN: Above issues were discussed with the patient and his in detail. At this time, the patie nt's activity will be advanced as tolerated and he will likely need rehab or a detention facil ity in the next few days. /[id number]/MODL
[2016-09-13] MEDS: ENOXAPARIN 40 MG/0.4 ML SYR SC SCH (08:53)
[2016-09-13] MEDS: GABAPENTIN 300 MG CAP PO SCH ×3 (08:53→21:58)
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
[2016-09-13] MEDS: INSULIN GLARGINE 100 UNITS/ML SYRINGE SC SCH (21:55)
[2016-09-13] MEDS: TPN W/ FAMOTIDINE 1 EA BAG IV SCH (21:56)
[2016-09-14] MEDS: INSULIN REGULAR, HUMAN 100 UNIT/1 ML VIAL STANDARD SC SCH ×3 (05:57→18:24)
[2016-09-14] MEDS: NS 1,000 ML IV SCH ×2 (05:58→21:11)
--- NOTE | 2016-09-14 08:23 | SOAPPROG ---
Downtime Inpatient MD Late Entry SOAP Note: Due to computer issues, I am unable to edit notes in standard SOAP note, therefore this template being used. Assessment: 70 yo M sp C3/4, C4/5, C5/6 ACDF Plan: stable arm weakness remains stable continue hard collar at all times PT/OT/ST scd/zoila/lovenox for dvt prophylaxis dysphagia, npo and getting TPN, speech continues to see patient. Video swallow today patient will need inpatient rehab please call with neuro changes discussed with Dr Holloway S: Pt resting in bed, states that he thinks his swallowing is better this morning. Wishes he could have half a cup of coffee. O: AAOx3 NAD VSS MAEx4 Motor 5/5 RUE, BLE. LUE: 4/5 for delt/tri/bi. 3+/5 handgrip on left C collar on Incision cdi +LT
[2016-09-14] MEDS: GABAPENTIN 300 MG CAP PO SCH ×3 (09:09→20:38)
[2016-09-14] MEDS: ENOXAPARIN 40 MG/0.4 ML SYR SC SCH (09:17)
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
--- NOTE | 2016-09-14 16:27 | SOAPPROG ---
SOAP Progress Note Assessment/Plan: BRIEF GI NOTE (formal consult NOT completed) Asked to see patient to consider PEG placement Reviewed speech path results, patient chart, and discussed plan of care with hospitalists as well as IR and family. Given neck brace, oropharyngeal/neck swelling and hematoma post-op, favor IR guided placement of PEG. This should limit mechanical trauma to cervical area, minimized sedation need, and reduce possible manipulation of the neck (pt in brace). Order placed for IR guided PEG. Please call with any questions. 09/14/16 16:24 Objective: Vital Signs Temp Pulse Resp BP Pulse Ox 37.0 C 78 16 110/65 96 09/14/16 08:00 09/14/16 08:00 09/14/16 08:00 09/14/16 08:00 09/14/16 08:00 Laboratory Results 09/11/16 05:26 09/13/16 04:25 09/13/16 09/14/16 09/15/16 05:59 05:59 05:59 Intake Total 2778 1344 Output Total 2435 3230 1450 Balance 343 -1886 -1450 PT 13.6 SEC (12.0-15.0) 09/11/16 05:26 INR 1.05 (0.83-1.16) 09/11/16 05:26 ICD10 Worksheet Patient Problems: Problems Problem Status Onset Central cord syndrome Acute Cervical spinal cord injury Acute
[2016-09-14] MEDS: TPN W/ FAMOTIDINE 1 EA BAG IV SCH (21:03)
[2016-09-14] MEDS: INSULIN GLARGINE 100 UNITS/ML SYRINGE SC SCH (21:10)
[2016-09-15] MEDS: INSULIN REGULAR, HUMAN 100 UNIT/1 ML VIAL STANDARD SC SCH ×5 (01:01→23:42)
--- NOTE | 2016-09-15 08:00 | NEUSURGPN ---
Date of Surgery: 09/05/16 Post Op Day: 10 Assessment/Plan: 70 yo M sp C3/4, C4/5, C5/6 ACDF Plan: - neuro stable, arm weakness remains stable - hard collar at all times - PT/OT/ST - failed swallow eval yesterday, patient to have IR place PEG today - DVT prophylaxis: SCD/FIDELIA/Lovenox - Dispo: Will require inpatient rehab - Please call with any neuro changes Subjective: Continues to have hypersensitivity in the left UE, with increased pain with touch. Wants to eat Objective: Awake. Alert. PERRL Following commands Incision with dressing c/d/i Motor 5/5 RUE, BLE. LUE: 4/5 for delt/tri/bi. 3+/5 handgrip on left Catheter Insertion Date: 09/05/16 - Physician Discussed Patient with : [facility] Physical Exam - Vitals, I&O, Labs I and O 09/14/16 09/15/16 09/16/16 05:59 05:59 05:59 Intake Total 1344 2688 Output Total 3230 2680 500 Balance -1886 8 -500 Weight 51.3 kg Intake: Oral (ml) 0 IV Infused (ml) 1344 2688 Ns 1,000 ml @ 70 mls/hr 840 1680 IV CONT LAILA Rx#: [id number] TPN W/ Famotidine 1 ea IV 504 1008 DAILY21 LAILA Rx#: [id number] Output: Urine (ml) 3230 2680 500 Bedside Commode 430 Incontinence 250 650 Urinal 2550 2030 500 Other: Intake Quantity No Sufficient Number of Voids Bedside Commode 2 Incontinence 1 2 Urinal 2 1 2 Number of Stools Bedside Commode 1 Incontinence 1 Vital Signs Temp Pulse Resp BP Pulse Ox 36.8 C 78 16 117/64 95 09/15/16 07:54 09/15/16 07:54 09/15/16 07:54 09/15/16 07:54 09/15/16 07:54 Laboratory Results 09/11/16 05:26 09/13/16 04:25 ICD10 Worksheet Patient Problems: Problems Problem Status Onset Central cord syndrome Acute Cervical spinal cord injury Acute
[2016-09-15] MEDS: GABAPENTIN 300 MG CAP PO SCH ×3 (09:43→20:34)
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
[2016-09-15] MEDS ORDERED: LIDOCAINE 2% JELLY 20 ML (UROJECT) ONE (15:13)
[2016-09-15] MEDS ORDERED: fentaNYL 100 MCG/2 ML INJ ONE (15:55)
[2016-09-15] MEDS ORDERED: MIDAZOLAM 2 MG/2 ML VIAL ONE (15:56)
[2016-09-15] MEDS ORDERED: GLUCAGON,HUMAN RECOMBINANT 1 MG VIAL ONE ×3 (15:57→16:03)
[2016-09-15] MEDS: DIAZEPAM 10 MG/2 ML SYR IVP PRN (19:30)
[2016-09-15] MEDS ORDERED: LIDOCAINE 1% 30 ML SDV ONE (21:08)
[2016-09-15] MEDS: INSULIN GLARGINE 100 UNITS/ML SYRINGE SC SCH (21:56)
[2016-09-15] MEDS: TPN W/ FAMOTIDINE 1 EA BAG IV SCH (22:40)
[2016-09-16] MEDS: INSULIN REGULAR, HUMAN 100 UNIT/1 ML VIAL STANDARD SC SCH (06:04)
[2016-09-16 07:52] VITALS: BP 129/78; PULSE 64; RESP 15; TEMP 98; O2SAT 99
--- NOTE | 2016-09-16 09:32 | NEUSURGPN ---
Date of Surgery: 09/05/16 Post Op Day: 11 Assessment/Plan: 70 yo M sp C3/4, C4/5, C5/6 ACDF after fall with central cord syndrome, severe stenosis and myelopathy Plan: - neuro stable, arm weakness remains stable -Xray show shtable hardware - hard collar at all times - PT/OT/ST - failed swallow eval yesterday, peg placed - DVT prophylaxis: SCD/FIDELIA/Lovenox - Dispo: Will require inpatient rehab, OK for dc from neurosurgical perspective -f/u with us at 2-4 weeks post op. - Please call with any neuro changes Subjective: discussed medications and that he thinks they are causing bad dreams, encouraged him to try one at a time until he determines which one is causing the bad dreams. complaint of pain at peg site. Objective: Awake. Alert and orientedy x2, relative time PERRL, EOMI Following commands Incision with dressing c/d/i Motor 5/5 RUE, BLE. LUE: 4/5 for delt/tri/bi. 3+/5 handgrip on left Catheter Insertion Date: 09/05/16 - Physician Discussed Patient with : [facility] Physical Exam - Vitals, I&O, Labs I and O 09/15/16 09/16/16 09/17/16 05:59 05:59 05:59 Intake Total 2688 1344 Output Total 2680 2225 Balance 8 -881 Weight 51.3 kg Intake: IV Infused (ml) 2688 1344 Ns 1,000 ml @ 70 mls/hr 1680 840 IV CONT LAILA Rx#: [id number] TPN W/ Famotidine 1 ea IV 1008 504 DAILY21 LAILA Rx#: [id number] Output: Urine (ml) 2680 2225 Bedside Commode 400 Incontinence 650 525 Urinal 2030 1300 Other: Number of Voids Incontinence 2 1 Urinal 1 1 Number of Stools Bedside Commode 1 1 Incontinence 1 Vital Signs Temp Pulse Resp BP Pulse Ox 36.7 C 64 15 129/78 H 99 09/16/16 07:51 09/16/16 07:51 09/16/16 07:51 09/16/16 07:51 09/16/16 07:51 Laboratory Results 09/11/16 05:26 09/13/16 04:25 ICD10 Worksheet Patient Problems: Problems Problem Status Onset Central cord syndrome Acute Cervical spinal cord injury Acute
[2016-09-16] MEDS: ENOXAPARIN 40 MG/0.4 ML SYR SC SCH (09:51)
--- NOTE | 2016-09-16 10:38 | PDIAF ---
- Diagnosis Diagnosis: cervical arthrodesis, central cord syndrome, cervical myelopathy and weakne Code Status: Full Code - Medication Management Discharge Medications: Medications to Continue on Transfer Cyanocobalamin [Vitamin B12 (*)] 1,000 mcg PO DAILY 08/26/16 [Last Taken 10:00] Glimepiride [Amaryl] 4 mg PO DAILY 08/26/16 [Last Taken 08/26/16 10:00] Lisinopril [Zestril 2.5 mg (*)] 2.5 mg PO DAILY 08/26/16 [Last Taken 08/26/16 10 :00] NPH, HUMAN INSULIN ISOPHANE [NOVOLIN N] 8 unit SQ HS 08/26/16 [Last Taken 22:00 8.5 UNITS] Simvastatin [Zocor] 20 mg PO DAILY@19 08/26/16 [Last Taken 08/25/16 19:00] metFORMIN HCL [Glucophage 500 mg (*)] 1,000 mg PO BIDMEAL 08/26/16 [Last Taken 08/26/16 10:00] Acetaminophen [Tylenol 325mg (*)] 325 - 650 mg PO Q4HRS PRN #0 tab 09/16/16 [ Last Taken Unknown] Acetaminophen [Tylenol Supp 325mg (*)] 325 - 650 mg OH Q6 PRN #0 supp 09/16/16 [ Last Taken Unknown] Diazepam [Valium Injection (*)] 2.5 - 5 mg IVP QID PRN #0 syr 09/16/16 [Last Taken Unknown] Enoxaparin [Lovenox 40 MG (*)] 40 mg SC DAILY #0 syr 09/16/16 [Last Taken Unknown] Gabapentin [Neurontin 300 MG (*)] 300 mg PO TID #0 cap 09/16/16 [Last Taken Unknown] Methocarbamol [Robaxin 750 mg (*)] 750 mg PO QID PRN #0 tab 09/16/16 [Last Taken Unknown] Discharge Medications: Refer to the Discharge Home Medication list for PRN reason. PICC Care - Routine: N/A - Orders Services needed: Registered Nurse, Certified Hand Cooper Helper, Physical Therapy, Occupational Therapy, Speech Language Pathologist Diet Recommendation: other (NPO) Diet Texture: Ice Chips, No Oral Liquids, Non Oral Meds Wound Care Instructions: may shower, no soaking Activity/Weight Bearing Restrictions: no lifting greater than 10lbs. Cervical collar except when in shower - Follow Up Care Current Providers and Referrals: SHARON COCHRAN [Primary Care Provider] -
[2016-09-16] MEDS: GABAPENTIN 300 MG CAP PO SCH (10:59)
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
== END 2016-09-16 12:49 | DRG 29 ==
LOC: EDUNIT# → EDBD → F2N 17:44 → F3N 09-03 18:40 → F2N 09-05 16:46 → F3N 09-05 17:01 → F2N 09-06 20:46 → F3N 09-08 15:48
PROVIDERS: ADMIT Surgery; ATTEND Neurological Surgery
PROC: 02HV33Z Insertion of Infusion Device into Superior Vena Cava, Percutaneous Approach (ICD-10-PCS; 2016-08-26)
PROC: 0RG20A0 Fusion of 2 or more Cervical Vertebral Joints with Interbody Fusion Device, Anterior Approach, Anterior Column, Open Approach (ICD-10-PCS; principal; 2016-09-05 12:15)
PROC: 0RB10ZZ Excision of Cervical Vertebral Joint, Open Approach (ICD-10-PCS; principal; 2016-09-05 12:15)
PROC: 0RB30ZZ Excision of Cervical Vertebral Disc, Open Approach (ICD-10-PCS; principal; 2016-09-05 12:15)
PROC: 00NW0ZZ Release Cervical Spinal Cord, Open Approach (ICD-10-PCS; principal; 2016-09-05 12:15)
PROC: 0RG2070 Fusion of 2 or more Cervical Vertebral Joints with Autologous Tissue Substitute, Anterior Approach, Anterior Column, Open Approach (ICD-10-PCS; principal; 2016-09-05 12:15)
PROC: 0DH67UZ Insertion of Feeding Device into Stomach, Via Natural or Artificial Opening (ICD-10-PCS; 2016-09-08)
PROC: 3E0G76Z Introduction of Nutritional Substance into Upper GI, Via Natural or Artificial Opening (ICD-10-PCS; 2016-09-08)
PROC: 0DH68UZ Insertion of Feeding Device into Stomach, Via Natural or Artificial Opening Endoscopic (ICD-10-PCS; 2016-09-15)
DX: S14.129A Central cord syndrome at unspecified level of cervical spinal cord, initial encounter (principal); R29.5 Transient paralysis; M47.12 Other spondylosis with myelopathy, cervical region; S00.03XA Contusion of scalp, initial encounter; M48.02 Spinal stenosis, cervical region; M62.81 Muscle weakness (generalized); R13.10 Dysphagia, unspecified; K59.00 Constipation, unspecified; E11.9 Type 2 diabetes mellitus without complications; I10 Essential (primary) hypertension; E78.5 Hyperlipidemia, unspecified; W18.09XA Striking against other object with subsequent fall, initial encounter; Y92.481 Parking lot as the place of occurrence of the external cause; Z87.11 Personal history of peptic ulcer disease
CPT/HCPCS: 92507-GN; 92523-GN; 92526-GN; 92610-GN; 92611-GN; 97110-GO; 97112-GP; 97116-GP; 97161-GP; 97164-GP; 97166-GO; 97530-GO; 97530-GP; 97535-GO; C1713; C1729; C1751; C1769; G0480; G8978-GP-CL; G8978-GP-CM; G8979-GP-CI; G8979-GP-CK; G8987-GO-CJ; G8987-GO-CL; G8988-GO-CJ; G8996-GN-CK; G8996-GN-CL; G8996-GN-CN; G8997-GN-CJ; G8997-GN-CK; G8997-GN-CN; G8998-GN-CK; G8998-GN-CN; G9168-GO-CI; G9169-GN-CJ; J0330; J0360; J0690; J1100; J1610; J1650; J1815; J2250; J2370; J2405; J2704; J2997; J3010

== ENCOUNTER 2016-09-11 15:29 | Inpatient (IN) | payer OTHER ==
[2016-09-16] MEDS ORDERED: METHOCARBAMOL 750 MG TAB PO PRN (15:50)
[2016-09-16] MEDS ORDERED: ACETAMINOPHEN 500 MG TAB TUBE PRN (15:50)
[2016-09-16] MEDS ORDERED: BISACODYL 10 MG SUPP PR PRN (15:52)
[2016-09-16] MEDS ORDERED: GABAPENTIN 300 MG CAP PO SCH ×2 (16:00→17:30)
[2016-09-16] MEDS ORDERED: D50W 25 GM/50 ML SYR IVP PRN (16:13)
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
[2016-09-16] MEDS: metFORMIN HCL 500 MG TAB PO SCH (17:29)
[2016-09-16] MEDS: INSULIN LISPRO 100 UNIT/ML SC SCH (17:35)
[2016-09-16] MEDS ORDERED: ATORVASTATIN CALCIUM 10 MG TAB PO SCH (19:00)
[2016-09-16] MEDS: ACETAMINOPHEN 650 MG/20.3 ML UDCUP TUBE PRN (21:02)
[2016-09-16] MEDS: ATORVASTATIN CALCIUM 10 MG TAB PO SCH (21:02)
[2016-09-16] MEDS: GABAPENTIN 250 MG/5 ML 30 ML BOTTLE TUBE SCH (21:08)
[2016-09-16] MEDS: INSULIN NPH HUMAN 100 UNITS/ML SYRINGE SC SCH (22:10)
[2016-09-17] MEDS: ACETAMINOPHEN 650 MG/20.3 ML UDCUP TUBE PRN ×3 (04:30→14:16)
[2016-09-17] MEDS: GABAPENTIN 250 MG/5 ML 30 ML BOTTLE TUBE SCH ×2 (08:23→22:22)
[2016-09-17] MEDS: metFORMIN HCL 500 MG TAB PO SCH (08:24)
[2016-09-17] MEDS: CYANO/VITAMIN B12 1000 MCG TAB PO SCH (08:24)
[2016-09-17] MEDS: ENOXAPARIN 40 MG/0.4 ML SYR SC SCH (08:24)
[2016-09-17] MEDS: INSULIN LISPRO 100 UNIT/ML SC SCH ×3 (08:25→22:50)
[2016-09-17] MEDS: GLIMEPIRIDE 2 MG TAB PO SCH (08:25)
[2016-09-17] MEDS: LISINOPRIL 2.5 MG TAB PO SCH (08:26)
[2016-09-17] MEDS: METOCLOPRAMIDE 10 MG/10 ML UDL PO SCH (12:13)
[2016-09-17] MEDS: traMADol 50 MG TAB PO PRN ×2 (14:16→22:23)
--- NOTE | 2016-09-17 14:16 | SOAPPROG ---
SOAP Progress Note Assessment/Plan: Mr Gonzales is a 70 year old right handed man who suffered a traumatic SCI (central cord syndrome) due to advanced cervical degenerative spondolytic stenosis with fall after being struck by a shopping cart now s/p C3-6 ACDF 08/26/2016 c/b paravertebral hematoma and severe dysphagia. Now s/p PEG placement * Traumatic Central Cord syndrome with left>right UE weakness. Continue physical , speech, and occupational therapy to optimize functional status and mobility. * Central Cord syndrome s/p C4-6 ACDF: Jo Simon at all times except hygeine * Allodynia: Increasing gabapentin to 300-300-600 with goal to uptitrate to at least 600TID, consider TCA * Severe Dysphagia: NPO, BEAD WIRE INSULATOR c/s, PEG in place, trying to uptitrate continuous Glucerna @55cc/hr with q4 100cc FWF when tolerating, c/s dietitian to switch to intermittent. * PEG site/abd pain and high residuals: likely multifactorial gastric hypomotility, No evidence of infection, will start reglan 10BID and give APAP and tramadol prn * DM2: cont. Metformin 1g BID, Glimepiride 4mg daily, Insulin NPH 8u qHS, and Low ISS * Anemia, likely post-op, improving will CTM * HTN, cont lisinopril 2.5mg * HLD, cont statin * Prophylaxis-> DVT, on LMWH. GI, not indicated F/U: NSG in 2 weeks PCP after discharge [facility] 18 days. Plan to d/c to home with 3-4STE with adult son and available for intermittent assist. Subjective: Refusing all therapies and transfers due to PEG site pain (only present with movement). Notably also had residuals in the 200's this morning. Feeds placed on hold for several hours and now restarted. No fevers or resting pain. Objective: Vital Signs Temp Pulse Resp BP Pulse Ox 37.1 C 93 16 102/59 L 92 09/17/16 08:00 09/17/16 08:00 09/17/16 08:00 09/17/16 08:26 09/17/16 08:00 09/16/16 09/17/16 09/18/16 05:59 05:59 05:59 Intake Total 1301 Output Total 650 Balance 651 - Pending Discharge Pending Discharge Within 24 Hours: No Pending Discharge Within 48 Hours: No Physical Exam - Physical Exam General Appearance: alert, no apparent distress Neck: other (Collar in place) Respiratory: lungs clear, normal breath sounds Cardiac/Chest: regular rate, rhythm Abdomen: soft, other (Tender in left quadrents, No erythema or drainage from PEG ) Skin: normal color, warm/dry Neuro/Psych: alert, normal mood/affect, oriented x 3, No cognition abnormalities , No speech abnormalities ICD10 Worksheet Patient Problems: Problems Problem Status Onset Central cord syndrome Acute Cervical spinal cord injury Acute
[2016-09-17] MEDS ORDERED: LIDOCAINE 2% JELLY 5 ML TUBE TP PRN (15:00)
[2016-09-17] MEDS: ATORVASTATIN CALCIUM 10 MG TAB PO SCH (22:24)
[2016-09-18] MEDS: GABAPENTIN 250 MG/5 ML 30 ML BOTTLE TUBE SCH ×4 (00:44→20:57)
[2016-09-18] MEDS: metFORMIN HCL 500 MG TAB PO SCH ×3 (00:45→17:42)
[2016-09-18] MEDS: METOCLOPRAMIDE 10 MG/10 ML UDL PO SCH ×3 (00:46→20:57)
[2016-09-18] MEDS: INSULIN NPH HUMAN 100 UNITS/ML SYRINGE SC SCH ×2 (00:47→20:58)
[2016-09-18] MEDS: traMADol 50 MG TAB PO PRN ×3 (04:34→18:14)
[2016-09-18] MEDS: INSULIN LISPRO 100 UNIT/ML SC SCH ×4 (08:06→22:33)
[2016-09-18] MEDS: ENOXAPARIN 40 MG/0.4 ML SYR SC SCH (09:28)
[2016-09-18] MEDS: CYANO/VITAMIN B12 1000 MCG TAB PO SCH (09:28)
[2016-09-18] MEDS: GLIMEPIRIDE 2 MG TAB PO SCH (09:28)
[2016-09-18] MEDS: LISINOPRIL 2.5 MG TAB PO SCH (09:28)
--- NOTE | 2016-09-18 09:47 | SOAPPROG ---
SOAP Progress Note Assessment/Plan: Assessment: 70 year old right handed man who suffered a traumatic SCI (central cord syndrome ) due to advanced cervical degenerative spondolytic stenosis with fall after being struck by a shopping cart now s/p C3-6 ACDF 08/26/2016 c/b paravertebral hematoma and severe dysphagia. Now s/p PEG placement. 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 Continue physical , speech, and occupational therapy to optimize functional status and mobility. * Central Cord syndrome s/p C4-6 ACDF: Jo Simon at all times except hygiene. * Allodynia: Increasing gabapentin to 300-300-600 with goal to uptitrate to at least 600TID, consider TCA. * Severe Dysphagia: NPO, WRITER c/s, PEG in place. * F/E/N: trying to uptitrate continuous Glucerna @55cc/hr with q4 100cc FWF when tolerating, c/s dietitian to switch to intermittent. * PEG site/abd pain and high residuals: likely multifactorial gastric hypomotility, No evidence of infection, will start reglan 10BID and give APAP and tramadol prn * DM2: cont. Metformin 1g BID, Glimepiride 4mg daily, Insulin NPH 8u qHS, and Low ISS Q6 hr * Anemia, likely post-op, improving will CTM * HTN, cont lisinopril 2.5mg * HLD, cont statin * Prophylaxis-> DVT, on LMWH. GI, not indicated F/U: NSG in 2 weeks PCP after discharge [facility] 18 days. Plan to d/c to home with 3-4STE with adult son and available for intermittent assist. 09/18/16 10:07 Subjective: Has some R shoulder pain. Abd pain mostly resolved. Tolerating TF 40 cc/hr. Bowels moving. Slept well. Objective: Vital Signs Temp Pulse Resp BP Pulse Ox 36.8 C 89 16 121/79 H 92 09/18/16 08:00 09/18/16 08:00 09/18/16 08:00 09/18/16 08:00 09/18/16 08:00 09/17/16 09/18/16 09/19/16 05:59 05:59 05:59 Intake Total 1301 400 Output Total 650 850 300 Balance 651 -450 -300 Physical Exam - Physical Exam General Appearance: alert, no apparent distress, thin Respiratory: normal breath sounds, No crackles, No rhonchi, No wheezing Cardiac/Chest: regular rate, rhythm, No edema Skin: normal color, warm/dry, other (Very faint resolving echymoses on cheeks) Neuro/Psych: alert, normal mood/affect, oriented x 3, motor weakness (L handgrip 3/5, R handgrip 4/5) ICD10 Worksheet Patient Problems: Problems Problem Status Onset Cervical spinal cord injury Acute
[2016-09-18] MEDS: ATORVASTATIN CALCIUM 10 MG TAB PO SCH (20:57)
[2016-09-18] MEDS ORDERED: SENNOSIDES 17.6 MG/10 ML UDL PO SCH (23:00)
[2016-09-19] MEDS: INSULIN LISPRO 100 UNIT/ML SC SCH ×3 (06:04→17:41)
[2016-09-19] MEDS ORDERED: METHOCARBAMOL 750 MG TAB TUBE PRN (08:35)
[2016-09-19] MEDS: ENOXAPARIN 40 MG/0.4 ML SYR SC SCH (08:46)
[2016-09-19] MEDS: traMADol 50 MG TAB TUBE PRN (08:52)
[2016-09-19] MEDS: metFORMIN HCL 500 MG TAB TUBE SCH ×2 (08:54→17:51)
[2016-09-19] MEDS: GABAPENTIN 250 MG/5 ML 30 ML BOTTLE TUBE SCH ×3 (08:54→20:33)
[2016-09-19] MEDS: METOCLOPRAMIDE 10 MG/10 ML UDL TUBE SCH ×2 (08:55→20:33)
[2016-09-19] MEDS: CYANO/VITAMIN B12 1000 MCG TAB PO SCH (08:55)
[2016-09-19] MEDS: LISINOPRIL 2.5 MG TAB TUBE SCH (08:55)
[2016-09-19] MEDS: GLIMEPIRIDE 2 MG TAB PO SCH (08:55)
[2016-09-19] MEDS: SENNOSIDES 17.6 MG/10 ML UDL TUBE SCH ×2 (09:27→20:32)
[2016-09-19] MEDS: metFORMIN HCL 500 MG TAB PO SCH (09:34)
--- NOTE | 2016-09-19 13:50 | SOAPPROG ---
SOAP Progress Note Assessment/Plan: Assessment: 70 year old right handed man who suffered a traumatic SCI (central cord syndrome ) due to advanced cervical degenerative spondolytic stenosis with fall after being struck by a shopping cart now s/p C3-6 ACDF 08/26/2016 c/b paravertebral hematoma and severe dysphagia. Now s/p PEG placement. 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 Continue physical , speech, and occupational therapy to optimize functional status and mobility. * Central Cord syndrome s/p C4-6 ACDF: Jo Simon at all times except hygiene. * Allodynia: Increasing gabapentin to 300-300-600 with goal to uptitrate to at least 600TID, consider TCA. * Severe Dysphagia: NPO, MEMBER OF THE LEGISLATIVE [employer]SEMBLY c/s, PEG in place. * F/E/N: Not tolerating Glucerna. D/W dietitian: will change to alternate formulation and resume titration of rate. Plan for eventual switch to intermittent. * PEG site/abd pain and high residuals: likely multifactorial gastric hypomotility, No evidence of infection, will start reglan 10BID and give APAP and tramadol prn * DM2: cont. Metformin 1g BID, Glimepiride 4mg daily, Insulin NPH 8u qHS, and Low ISS Q6 hr * Anemia, likely post-op, improving will CTM * HTN, cont lisinopril 2.5mg * HLD, cont statin * Prophylaxis-> DVT, on LMWH. GI, not indicated F/U: NSG in 2 weeks PCP after discharge [facility] 18 days. Plan to d/c to home with 3-4STE with adult son and available for intermittent assist. 09/19/16 13:48 Subjective: Feels better today. Had large bowel movement. Has been out of bed doing therapy. Still with LLQ tenderness and pain. Objective: Vital Signs Temp Pulse Resp BP Pulse Ox 37.1 C 83 16 109/69 91 L 09/19/16 07:27 09/19/16 07:27 09/19/16 07:27 09/19/16 08:55 09/19/16 07:27 09/18/16 09/19/16 09/20/16 05:59 05:59 05:59 Intake Total 400 1270 Output Total 850 1900 455 Balance -450 630 -455 Physical Exam - Physical Exam General Appearance: alert, no apparent distress, cachetic Respiratory: No respiratory distress, No accessory muscle use Cardiac/Chest: No edema Abdomen: normal bowel sounds, soft, other (Tender LLQ), No organomegaly, No distended Skin: normal color, warm/dry ICD10 Worksheet Patient Problems: Problems Problem Status Onset Cervical spinal cord injury Acute
[2016-09-19] MEDS: INSULIN NPH HUMAN 100 UNITS/ML SYRINGE SC SCH (20:27)
[2016-09-19] MEDS: ATORVASTATIN CALCIUM 10 MG TAB TUBE SCH (20:33)
[2016-09-20] MEDS: INSULIN LISPRO 100 UNIT/ML SC SCH ×4 (00:42→18:30)
[2016-09-20] MEDS: GABAPENTIN 250 MG/5 ML 30 ML BOTTLE TUBE SCH ×3 (08:04→21:28)
[2016-09-20] MEDS: metFORMIN HCL 500 MG TAB TUBE SCH ×2 (08:05→18:30)
[2016-09-20] MEDS: METOCLOPRAMIDE 10 MG/10 ML UDL TUBE SCH ×2 (08:06→21:21)
[2016-09-20] MEDS: LISINOPRIL 2.5 MG TAB TUBE SCH (08:06)
[2016-09-20] MEDS: GLIMEPIRIDE 2 MG TAB PO SCH (08:06)
[2016-09-20] MEDS: CYANO/VITAMIN B12 1000 MCG TAB PO SCH (08:06)
[2016-09-20] MEDS: ENOXAPARIN 40 MG/0.4 ML SYR SC SCH (08:06)
[2016-09-20] MEDS: SENNOSIDES 17.6 MG/10 ML UDL TUBE SCH (08:07)
[2016-09-20] MEDS: traMADol 50 MG TAB TUBE PRN ×3 (08:07→21:22)
[2016-09-20] MEDS ORDERED: SENNOSIDES 17.6 MG/10 ML UDL TUBE PRN (11:47)
--- NOTE | 2016-09-20 12:17 | PDOREHIP ---
Admission [facility] - Admission - 3 Day Assessment Period Admission Date/Day 1: 09/16/16 Day 2: 09/17/16 Day 3: 09/18/16 - Active Diagnoses Comorbidities and Co-existing Conditions at Admission: 30570. DM (e.g. diabetic retinopathy, nephropathy, and neuropathy) - Skin Conditions Unhealed Pressure Ulcer (1 or more/Stage 1 or >)-Admission: 0. No
--- NOTE | 2016-09-20 12:33 | SOAPPROG ---
SOAP Progress Note Assessment/Plan: Assessment: 70 year old right handed man who suffered a traumatic SCI (central cord syndrome ) due to advanced cervical degenerative spondolytic stenosis with fall after being struck by a shopping cart now s/p C3-6 ACDF 08/26/2016 c/b paravertebral hematoma and severe dysphagia. Now s/p PEG placement. 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 Initial FIM 59. PEG site pain complicated attempts to mobilize. Walked 40' X 2 Min A limited by PEG site pain. Continue physical, and occupational therapy to optimize functional status and mobility. * Central Cord syndrome s/p C4-6 ACDF: Jo Simon at all times except hygiene. * Dysphagia and prevertebral hematoma. Relatively fresh incision limits options for MACHINE CRATER: no myofascial work or E-stim. Advanced to water protocol 1/2 teaspoon at a time. Continue MACHINE CRATER. * Allodynia: Increasing gabapentin to 300-300-600. Improved. * F/E/N: Not tolerating Glucerna. D/W dietitian: changed to Vital AF 1.2 on ; tolerating and advancing rate towards goal 55 cc/hr. Plan for eventual switch to intermittent. * PEG site/abd pain and high residuals: likely multifactorial gastric hypomotility, No evidence of infection. Continue reglan 10BID. Scheduled APAP 650 mg Q 6 hr. Continue tramadol 50 - 100 mg Q 4 hr PRN; offer30 min before therapies. Remote h/o PUD when he was taking ASA: will start PPI. D/W Dr. Moore , Interventional Radiology, 09/20/16: ensure that external disk is not too tight; consider abd CT as LLQ placement was unusual. * DM2: cont. Metformin 1g BID, Glimepiride 4mg daily, Insulin NPH 8u qHS, and Low ISS Q6 hr * Anemia, likely post-op, improving will CTM * HTN, cont lisinopril 2.5mg * HLD, cont statin * Prophylaxis-> DVT, on LMWH. GI, not indicated F/U: NSG in 2 weeks (09/29? 10/06?) PCP after discharge Attended staffing, 15 min. D/W case mgmt, nursing, cytology laboratory manager, PT, OT, MACHINE CRATER. Plan to d/c to home with 3-4STE with adult son and available for intermittent assist. Tentative discharge date 10/04/16. 09/21/16 11:15 Subjective: C/O LLQ abd pain at PEG tube site. Also still with diarrhea. No more gas/ bloating siince tube feed formulary was changed. Slept well. Objective: Vital Signs Temp Pulse Resp BP Pulse Ox 37.2 C 83 18 115/60 92 09/20/16 08:00 09/20/16 08:00 09/20/16 08:00 09/20/16 08:06 09/20/16 08:00 09/19/16 09/20/16 09/21/16 05:59 05:59 05:59 Intake Total 1270 1062 100 Output Total 1900 1680 Balance -630 -618 100 - Time Spent With Patient Time Spent With Patient: Greater than 35 minutes floor timem today, including more than 50% of time in coordination of care during staffing meeting, and counseling patient and . Physical Exam - Physical Exam General Appearance: alert, no apparent distress, cachetic Respiratory: No respiratory distress, No accessory muscle use Cardiac/Chest: No edema Abdomen: normal bowel sounds, soft, other (mild tenderness LLQ. PEG in LLQ, very tender to any maniputaion. External bumper 1 cm from abd wall. No erythema or drainage.), No distended Neuro/Psych: alert, normal mood/affect, oriented x 3 ICD10 Worksheet Patient Problems: Problems Problem Status Onset Cervical spinal cord injury Acute
[2016-09-20] MEDS: ACETAMINOPHEN 650 MG/20.3 ML UDCUP TUBE SCH ×2 (12:49→18:29)
[2016-09-20] MEDS: LANSOPRAZOLE SUSP 30MG/10ML UDSYR (Adult) TUBE SCH (15:56)
[2016-09-20] MEDS: INSULIN NPH HUMAN 100 UNITS/ML SYRINGE SC SCH ×2 (21:20→22:26)
[2016-09-20] MEDS: ATORVASTATIN CALCIUM 10 MG TAB TUBE SCH (21:22)
[2016-09-21] MEDS: ACETAMINOPHEN 650 MG/20.3 ML UDCUP TUBE SCH ×4 (00:15→18:11)
[2016-09-21] MEDS: INSULIN LISPRO 100 UNIT/ML SC SCH ×4 (02:19→18:11)
[2016-09-21] MEDS: ENOXAPARIN 40 MG/0.4 ML SYR SC SCH (08:29)
[2016-09-21] MEDS: GLIMEPIRIDE 2 MG TAB PO SCH (08:29)
[2016-09-21] MEDS: CYANO/VITAMIN B12 1000 MCG TAB PO SCH (08:29)
[2016-09-21] MEDS: metFORMIN HCL 500 MG TAB TUBE SCH ×2 (08:29→18:11)
[2016-09-21] MEDS: LISINOPRIL 2.5 MG TAB TUBE SCH (08:30)
[2016-09-21] MEDS: METOCLOPRAMIDE 10 MG/10 ML UDL TUBE SCH ×2 (08:30→20:53)
[2016-09-21] MEDS: GABAPENTIN 250 MG/5 ML 30 ML BOTTLE TUBE SCH ×3 (08:30→20:52)
[2016-09-21] MEDS: LANSOPRAZOLE SUSP 30MG/10ML UDSYR (Adult) TUBE SCH (08:30)
[2016-09-21] MEDS: traMADol 50 MG TAB TUBE PRN ×2 (08:31→18:11)
--- NOTE | 2016-09-21 11:54 | SOAPPROG ---
SOAP Progress Note Assessment/Plan: Assessment: 70 year old right handed man who suffered a traumatic SCI (central cord syndrome ) due to advanced cervical degenerative spondolytic stenosis with fall after being struck by a shopping cart now s/p C3-6 ACDF 08/26/2016 c/b paravertebral hematoma and severe dysphagia. Now s/p PEG placement. 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 Initial FIM 59. PEG site pain complicated attempts to mobilize, but much more participatory today 09/21/16. Continue physical, and occupational therapy to optimize functional status and mobility. * Central Cord syndrome s/p C4-6 ACDF: Jo Simon at all times except hygiene. * Dysphagia and prevertebral hematoma. Relatively fresh incision limits options for CLEAN UP PERSON: no myofascial work or E-stim. Advanced to water protocol 1/2 teaspoon at a time. CLEAN UP PERSON reports further improvement today 09/21/16. Continue CLEAN UP PERSON. * Allodynia: Increasing gabapentin to 300-300-600. Improved. * F/E/N: Not tolerating Glucerna. D/W dietitian: changed to Vital AF 1.2 on ; tolerating and advancing rate towards goal 55 cc/hr. Unclear why he had increased residual overnight 09/20/16; likely multifactorial gastric hypomotility , No evidence of infection. Continue reglan 10BID. Plan for eventual switch to intermittent. * PEG site/abd pain: Scheduled APAP 650 mg Q 6 hr. Continue tramadol 50 - 100 mg Q 4 hr PRN; offer30 min before therapies. Remote h/o PUD when he was taking ASA: will start PPI. D/W Dr. Moore, Interventional Radiology, 09/20/16: ensure that external disk is not too tight; consider abd CT as LLQ placement was unusual. Not interfering with therapies today 09/21/16; continue to monitor. * DM2: cont. Metformin 1g BID, Glimepiride 4mg daily, Insulin NPH 8u qHS, and Low ISS Q6 hr * Anemia, likely post-op, improving will CTM * HTN, cont lisinopril 2.5mg * HLD, cont statin * Prophylaxis-> DVT, on LMWH. GI, not indicated F/U: NSG in 2 weeks (09/29? 10/06?) PCP after discharge Plan to d/c to home with 3-4STE with adult son and available for intermittent assist. Tentative discharge date 10/04/16. 09/21/16 11:51 Subjective: Slept well. Had a high residual so tube feed was interrupted; later restarted. Reports abd pain after coughing when trialing liquids with CLEAN UP PERSON. Participating in therapies. Objective: Vital Signs Temp Pulse Resp BP Pulse Ox 36.7 C 81 15 110/72 93 09/21/16 06:12 09/21/16 06:12 09/21/16 06:12 09/21/16 08:30 09/21/16 06:12 09/20/16 09/21/16 09/22/16 05:59 05:59 05:59 Intake Total 1062 1850 Output Total 1680 300 Balance -618 1550 Physical Exam - Physical Exam General Appearance: alert, no apparent distress, cachetic Respiratory: No respiratory distress, No accessory muscle use Abdomen: other (TTP LLQ), No distended Skin: normal color, warm/dry Neuro/Psych: alert, normal mood/affect, oriented x 3, other (Ambulating slowly FWW step-through pattern narrow base PT SBA) ICD10 Worksheet Patient Problems: Problems Problem Status Onset Cervical spinal cord injury Acute
[2016-09-21] MEDS: ATORVASTATIN CALCIUM 10 MG TAB TUBE SCH (20:51)
[2016-09-21] MEDS: INSULIN NPH HUMAN 100 UNITS/ML SYRINGE SC SCH (21:20)
[2016-09-22] MEDS: ACETAMINOPHEN 650 MG/20.3 ML UDCUP TUBE SCH ×4 (00:05→18:34)
[2016-09-22] MEDS: traMADol 50 MG TAB TUBE PRN ×4 (00:05→21:01)
[2016-09-22] MEDS: INSULIN LISPRO 100 UNIT/ML SC SCH ×4 (00:13→18:29)
[2016-09-22] MEDS: GABAPENTIN 250 MG/5 ML 30 ML BOTTLE TUBE SCH ×3 (09:13→20:52)
[2016-09-22] MEDS: metFORMIN HCL 500 MG TAB TUBE SCH (09:14)
[2016-09-22] MEDS: CYANO/VITAMIN B12 1000 MCG TAB PO SCH (09:14)
[2016-09-22] MEDS: GLIMEPIRIDE 2 MG TAB PO SCH (09:15)
[2016-09-22] MEDS: LISINOPRIL 2.5 MG TAB TUBE SCH (09:15)
[2016-09-22] MEDS: ENOXAPARIN 40 MG/0.4 ML SYR SC SCH (09:15)
[2016-09-22] MEDS: METOCLOPRAMIDE 10 MG/10 ML UDL TUBE SCH ×2 (09:18→20:44)
[2016-09-22] MEDS: LANSOPRAZOLE SUSP 30MG/10ML UDSYR (Adult) TUBE SCH (09:19)
--- NOTE | 2016-09-22 10:14 | SOAPPROG ---
SOAP Progress Note Assessment/Plan: Assessment: 70 year old right handed man who suffered a traumatic SCI (central cord syndrome ) due to advanced cervical degenerative spondolytic stenosis with fall after being struck by a shopping cart now s/p C3-6 ACDF 08/26/2016 c/b paravertebral hematoma and severe dysphagia. Now s/p PEG placement. 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 Initial FIM 59. PEG site pain complicated attempts to mobilize, but much more participatory today 09/21/16. Continue physical, and occupational therapy to optimize functional status and mobility. * Central Cord syndrome s/p C4-6 ACDF: [place] at all times except hygiene. * Dysphagia and prevertebral hematoma. 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 Advanced to water protocol 1/2 teaspoon at a time. SENIOR [employer]LE [employer] SQL DEVELOPER reports further improvement today 09/21/16. Continue SENIOR [employer] [address] SQL DEVELOPER. * Allodynia: Increasing gabapentin to 300-300-600. Improved. * F/E/N: Not tolerating Glucerna. D/W dietitian: changed to Vital AF 1.2 on ; tolerating and advancing rate towards goal 55 cc/hr. Unclear why he had increased residual overnight 09/20/16; likely multifactorial gastric hypomotility , No evidence of infection. Continue reglan 10BID. Plan for eventual switch to intermittent. * PEG site/abd pain: Scheduled APAP 650 mg Q 6 hr. Continue tramadol 50 - 100 mg Q 4 hr PRN; offer30 min before therapies. Remote h/o PUD when he was taking ASA: will start PPI. Had abd CT today 09/22/16: no abnormalities other than expected tissue thickening at PEG site. External disk was loosened further by IR Dr. Moore. Continue pain control. * DM2: Hold metformin 1g BID s/p contrast administration; restart 09/24/16 evening dose. Continue Glimepiride 4mg daily, Insulin NPH 8u qHS, and Low ISS Q6 hr * Anemia, likely post-op, improving will CTM * HTN, cont lisinopril 2.5mg * HLD, cont statin * Prophylaxis-> DVT, on LMWH. GI, not indicated F/U: NSG in 2 weeks (09/29? 3/17?) PCP after discharge Plan to d/c to home with 3-4STE with adult son and available for intermittent assist. Tentative discharge date 10/04/16. 09/22/16 14:31 Subjective: Comfortable overnight. Tolerating tube feeds; minimal residuals overnight. Urinary retention documented by nurse. Objective: Vital Signs Temp Pulse Resp BP Pulse Ox 36.7 C 75 16 120/74 94 09/22/16 06:34 09/22/16 06:34 09/22/16 06:34 09/22/16 09:15 09/22/16 06:34 09/21/16 09/22/16 09/23/16 05:59 05:59 05:59 Intake Total 1850 1660 Output Total 300 775 Balance 1550 885 Physical Exam - Physical Exam General Appearance: alert, no apparent distress, cachetic Respiratory: No respiratory distress, No accessory muscle use Cardiac/Chest: No edema Abdomen: soft, guarding, other (tender LLQ to light palpation) Neuro/Psych: alert, normal mood/affect, oriented x 3 ICD10 Worksheet Patient Problems: Problems Problem Status Onset Cervical spinal cord injury Acute
[2016-09-22] MEDS ORDERED: IOPAMIDOL (ISOVUE-300) 100 ML BTL IV ONE (11:45)
[2016-09-22] MEDS: INSULIN NPH HUMAN 100 UNITS/ML SYRINGE SC SCH (20:41)
[2016-09-22] MEDS: ATORVASTATIN CALCIUM 10 MG TAB TUBE SCH (20:44)
[2016-09-22] MEDS: DOXAZOSIN MESYLATE 1 MG TAB PO SCH (20:44)
[2016-09-23] MEDS: ACETAMINOPHEN 650 MG/20.3 ML UDCUP TUBE SCH ×5 (00:16→23:57)
[2016-09-23] MEDS: INSULIN LISPRO 100 UNIT/ML SC SCH ×4 (00:18→18:19)
[2016-09-23] MEDS: GABAPENTIN 250 MG/5 ML 30 ML BOTTLE TUBE SCH ×3 (08:28→20:07)
[2016-09-23] MEDS: CYANO/VITAMIN B12 1000 MCG TAB PO SCH (08:29)
[2016-09-23] MEDS: ENOXAPARIN 40 MG/0.4 ML SYR SC SCH (08:29)
[2016-09-23] MEDS: GLIMEPIRIDE 2 MG TAB PO SCH (08:30)
[2016-09-23] MEDS: LISINOPRIL 2.5 MG TAB TUBE SCH (08:31)
[2016-09-23] MEDS: traMADol 50 MG TAB TUBE PRN (08:31)
[2016-09-23] MEDS: METOCLOPRAMIDE 10 MG/10 ML UDL TUBE SCH ×2 (08:34→20:07)
[2016-09-23] MEDS: LANSOPRAZOLE SUSP 30MG/10ML UDSYR (Adult) TUBE SCH (08:34)
--- NOTE | 2016-09-23 11:55 | SOAPPROG ---
SOAP Progress Note Assessment/Plan: Assessment: 70 year old right handed man who suffered a traumatic SCI (central cord syndrome ) due to advanced cervical degenerative spondolytic stenosis with fall after being struck by a shopping cart now s/p C3-6 ACDF 08/26/2016 c/b paravertebral hematoma and severe dysphagia. Now s/p PEG placement. 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 Initial FIM 59. PEG site pain complicated attempts to mobilize, but much more participatory . Continue physical, and occupational therapy to optimize functional status and mobility. Ambulated 200 feet today with FWW. * Central Cord syndrome s/p C4-6 ACDF: [place] at all times except hygiene. * Dysphagia and prevertebral hematoma. 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 Advanced to water protocol 1/2 teaspoon at a time. WELDING MACHINE FEEDER reports continued improvement. Continue WELDING MACHINE FEEDER. * Allodynia: Increasing gabapentin to 300-300-600. Improved. * F/E/N: Not tolerating Glucerna. D/W dietitian: changed to Vital AF 1.2 on ; tolerating and advancing rate towards goal 55 cc/hr. Unclear why he had increased residual overnight 09/20/16; likely multifactorial gastric hypomotility , No evidence of infection. Continue reglan 10BID. Plan for eventual switch to intermittent. * PEG site/abd pain: Scheduled APAP 650 mg Q 6 hr. Continue tramadol 50 - 100 mg Q 4 hr PRN; offer30 min before therapies. Remote h/o PUD when he was taking ASA: will start PPI. Had abd CT today 09/22/16: no abnormalities other than expected tissue thickening at PEG site. External disk was loosened further by IR Dr. Moore. Continue pain control. * DM2: Hold metformin 1g BID s/p contrast administration; restart 09/24/16 evening dose. Continue Glimepiride 4mg daily, Insulin NPH 8u qHS, and Low ISS Q6 hr * Anemia, likely post-op, improving will CTM * HTN, cont lisinopril 2.5mg * HLD, cont statin * Prophylaxis-> DVT, on LMWH. GI, not indicated Plan: 09/23/16 11:57 Subjective: No complaints per patient. He reports he is tolerating swallowing water w/o much difficulty. He reports LUE weakness greater than RUE Objective: Vital Signs Temp Pulse Resp BP Pulse Ox 36.8 C 85 15 101/59 L 93 09/23/16 06:15 09/23/16 06:15 09/23/16 06:15 09/23/16 08:31 09/23/16 06:15 09/22/16 09/23/16 09/24/16 05:59 05:59 05:59 Intake Total 1660 886 Output Total 775 224 Balance 885 266 Physical Exam - Physical Exam General Appearance: WD/WN, alert, no apparent distress Neck: other (Hard cervical collar in place. ) Respiratory: lungs clear, normal breath sounds Cardiac/Chest: No edema, No JVD Abdomen: normal bowel sounds, non-tender, soft, rebound Skin: normal color, warm/dry Lymphatic: other (right hand edema) Extremities: No normal range of motion (Decreased right and left glenohumeral ROM but WFL), No swelling, No Shabbir's sign Neuro/Psych: alert, normal mood/affect, oriented x 3, motor weakness (b/L UE weakness most pronounced in shoulder girdle muscles.) ICD10 Worksheet Patient Problems: Problems Problem Status Onset Cervical spinal cord injury Acute
[2016-09-23] MEDS: DOXAZOSIN MESYLATE 1 MG TAB PO SCH (20:07)
[2016-09-23] MEDS: ATORVASTATIN CALCIUM 10 MG TAB TUBE SCH (20:07)
[2016-09-23] MEDS: INSULIN NPH HUMAN 100 UNITS/ML SYRINGE SC SCH (20:07)
[2016-09-24] MEDS: INSULIN LISPRO 100 UNIT/ML SC SCH ×4 (00:02→18:13)
[2016-09-24] MEDS: GABAPENTIN 250 MG/5 ML 30 ML BOTTLE TUBE SCH ×3 (06:10→20:31)
[2016-09-24] MEDS: ACETAMINOPHEN 650 MG/20.3 ML UDCUP TUBE SCH ×3 (06:11→18:16)
[2016-09-24] MEDS: ENOXAPARIN 40 MG/0.4 ML SYR SC SCH (08:02)
[2016-09-24] MEDS: LANSOPRAZOLE SUSP 30MG/10ML UDSYR (Adult) TUBE SCH (08:03)
[2016-09-24] MEDS: METOCLOPRAMIDE 10 MG/10 ML UDL TUBE SCH ×2 (08:03→20:31)
[2016-09-24] MEDS: GLIMEPIRIDE 2 MG TAB PO SCH (08:04)
[2016-09-24] MEDS: CYANO/VITAMIN B12 1000 MCG TAB PO SCH (08:04)
[2016-09-24] MEDS: LISINOPRIL 2.5 MG TAB TUBE SCH (08:09)
--- NOTE | 2016-09-24 10:56 | SOAPPROG ---
SOAP Progress Note Assessment/Plan: Assessment: 70 year old right handed man who suffered a traumatic SCI (central cord syndrome ) due to advanced cervical degenerative spondolytic stenosis with fall after being struck by a shopping cart now s/p C3-6 ACDF 08/26/2016 c/b paravertebral hematoma and severe dysphagia. Now s/p PEG placement. 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 Initial FIM 59. PEG site pain complicated attempts to mobilize, but much more participatory . Continue physical, and occupational therapy to optimize functional status and mobility. Ambulated 200 feet today with FWW. * Central Cord syndrome s/p C4-6 ACDF: [place] Simon at all times except hygiene. * Dysphagia and prevertebral hematoma. 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 ST reports he will be advanced to pureed diet today. I ask ST to provide patient with bedside swallowing exercise. FES to pharyngeal muscles deferred until brace can be removed. * Allodynia: Increasing gabapentin to 300-300-600. Improved. * F/E/N: Not tolerating Glucerna. D/W dietitian: changed to Vital AF 1.2 on ; tolerating and advancing rate towards goal 55 cc/hr. Unclear why he had increased residual overnight 09/20/16; likely multifactorial gastric hypomotility , No evidence of infection. Continue reglan 10BID. Plan for eventual switch to intermittent. * PEG site/abd pain: Scheduled APAP 650 mg Q 6 hr. Continue tramadol 50 - 100 mg Q 4 hr PRN; offer30 min before therapies. Remote h/o PUD when he was taking ASA: will start PPI. Had abd CT today 09/22/16: no abnormalities other than expected tissue thickening at PEG site. External disk was loosened further by IR Dr. Moore. Continue pain control. * DM2: Hold metformin 1g BID s/p contrast administration; restart 09/24/16 evening dose. Continue Glimepiride 4mg daily, Insulin NPH 8u qHS, and Low ISS Q6 hr * Anemia, likely post-op, improving will CTM * HTN, cont lisinopril 2.5mg. BP THIS AM 116/74 * HLD, cont statin * Prophylaxis-> DVT, on LMWH. GI, not indicated Plan: 09/23/16 11:57 09/24/16 10:56 Subjective: He reports he tolerated eating potato soup yesterday. He denies pain with swallowing or choking. Denies SOB. Objective: Vital Signs Temp Pulse Resp BP Pulse Ox 37 C 83 92 H 116/74 95 09/24/16 06:38 09/24/16 08:00 09/24/16 08:00 09/24/16 08:09 09/24/16 06:38 09/23/16 09/24/16 09/25/16 05:59 05:59 05:59 Intake Total 886 2191 827 Output Total 620 1230 410 Balance 266 961 417 Physical Exam - Physical Exam General Appearance: WD/WN, alert, no apparent distress Neck: other (Hard cervical collar in place) Respiratory: lungs clear, normal breath sounds, No crackles, No wheezing Cardiac/Chest: No JVD Abdomen: normal bowel sounds, non-tender, soft Skin: normal color, warm/dry Neuro/Psych: alert, oriented x 3 (b/l UE WEAKNESS C/W central cord syndrome. ) , motor weakness ICD10 Worksheet Patient Problems: Problems Problem Status Onset Cervical spinal cord injury Acute
[2016-09-24] MEDS: metFORMIN HCL 500 MG TAB TUBE SCH (18:17)
[2016-09-24] MEDS: DOXAZOSIN MESYLATE 1 MG TAB PO SCH (20:30)
[2016-09-24] MEDS: ATORVASTATIN CALCIUM 10 MG TAB TUBE SCH (20:31)
[2016-09-24] MEDS: INSULIN NPH HUMAN 100 UNITS/ML SYRINGE SC SCH (20:31)
[2016-09-25] MEDS: ACETAMINOPHEN 650 MG/20.3 ML UDCUP TUBE SCH ×4 (00:02→17:19)
[2016-09-25] MEDS: INSULIN LISPRO 100 UNIT/ML SC SCH ×4 (00:09→17:21)
[2016-09-25] MEDS: CYANO/VITAMIN B12 1000 MCG TAB PO SCH (08:03)
[2016-09-25] MEDS: ENOXAPARIN 40 MG/0.4 ML SYR SC SCH (08:03)
[2016-09-25] MEDS: LANSOPRAZOLE SUSP 30MG/10ML UDSYR (Adult) TUBE SCH (08:04)
[2016-09-25] MEDS: GLIMEPIRIDE 2 MG TAB PO SCH (08:04)
[2016-09-25] MEDS: metFORMIN HCL 500 MG TAB TUBE SCH ×2 (08:08→17:23)
[2016-09-25 09:18] LABS: % IMMATURE GRANULYOCYTES 0.4 % (0.0-1.1); ABSOLUTE IMMATURE GRANULOCYTES 0.02 10^3/uL (0.00-0.10); ADD DIFF? NO; ADD MORPH? NO; ADD SCAN? NO; ATYPICAL LYMPHOCYTE FLAG 40 (0-99); FRAGMENT RBC FLAG 10 (0-99); HEMATOCRIT 30.2 % (40.0-51.0); HEMOGLOBIN 10.1 g/dL (13.7-17.5); LEFT SHIFT FLG 40 (0-99); LIPEMIA HEMOLYSIS FLAG 80 (0-99); MEAN CELL HEMOGLOBIN 30.1 pg (27.9-34.1); MEAN CELL HEMOGLOBIN CONCENTR. 33.4 g/dL (32.4-36.7); MEAN CELL VOLUME 90.1 fL (81.5-99.8); MEAN PLATELET VOLUME 10.5 fL (8.7-11.7); PLATELET CLUMPS FLAG 0 (0-99); PLATELET COUNT 521 10^3/uL (150-400); RED BLOOD CELL COUNT 3.35 10^6/uL (4.40-6.38); RED CELL DISTRIBUTION WIDTH 13.3 % (11.5-15.2)
[2016-09-25 09:41] LABS: ANION GAP 10 mEq/L (8-16); CALCIUM 10.7 mg/dL (8.5-10.4); CARBON DIOXIDE 28 mEq/l (22-31); CHLORIDE 97 mEq/L (97-110); CREATININE 0.6 mg/dL (0.7-1.3); GLOMERULAR FILTRATION RATE > 60; GLUCOSE 346 mg/dL (70-100); SODIUM 135 mEq/L (134-144)
[2016-09-25] MEDS: GABAPENTIN 250 MG/5 ML 30 ML BOTTLE TUBE SCH ×3 (10:04→21:07)
[2016-09-25] MEDS: METOCLOPRAMIDE 10 MG/10 ML UDL TUBE SCH ×2 (12:39→21:08)
[2016-09-25] MEDS: LISINOPRIL 2.5 MG TAB TUBE SCH (12:39)
[2016-09-25] MEDS ORDERED: INSULIN NPH HUMAN 100 UNITS/ML SYRINGE SC SCH (12:53)
--- NOTE | 2016-09-25 12:53 | SOAPPROG ---
SOAP Progress Note Assessment/Plan: Assessment: 70 year old right handed man who suffered a traumatic SCI (central cord syndrome ) due to advanced cervical degenerative spondolytic stenosis with fall after being struck by a shopping cart now s/p C3-6 ACDF 08/26/2016 c/b paravertebral hematoma and severe dysphagia. Now s/p PEG placement. 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 Initial FIM 59. PEG site pain mostly resolved. Continue physical, and occupational therapy to optimize functional status and mobility. * Central Cord syndrome s/p C4-6 ACDF: Jo Simon at all times except hygiene. * Dysphagia and prevertebral hematoma. 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 Advanced to water protocol 1/2 teaspoon at a time. Continue CAR BODY INSPECTOR. * Allodynia: Increasing gabapentin to 300-300-600. Improved. * F/E/N: Not tolerating Glucerna. D/W dietitian: changed to Vital AF 1.2 on ; tolerating 55 cc/hr. Change reglan from 10BID to 5 mg BID; monitor for increased residuals; if none, then will d/c.. Plan for eventual switch to bolus feeding per welfare administrator. * PEG site/abd pain: Scheduled APAP 650 mg Q 6 hr. Continue tramadol 50 - 100 mg Q 4 hr PRN; offer30 min before therapies. Remote h/o PUD when he was taking ASA: will start PPI. Had abd CT 09/22/16: no abnormalities other than expected tissue thickening at PEG site. External disk was loosened further by IR Dr. Moore. Continue pain control. * DM2: Held metformin 1g BID s/p contrast administration; restarted 09/24/16 evening dose. Continue Glimepiride 4mg daily. Increase insulin NPH from 8u qHS to 10 U QHS, and Low ISS Q6 hr * Anemia, likely post-op, improving will CTM * HTN, cont lisinopril 2.5mg * HLD, cont statin * Prophylaxis-> DVT, on LMWH. GI, not indicated F/U: NSG in 2 weeks (09/29? 10/06?) PCP after discharge Plan to d/c to home with 3-4STE with adult son and available for intermittent assist. Tentative discharge date 10/04/16. 09/25/16 12:48 Subjective: Much less stomach pain, tolerating ambulation. Minimal neck pain. Has some pain B palms over thenar eminences. Reports dexterity improving in hands, "90% " of normal in R hand, and now able to extend finger of L hand. Objective: Vital Signs Temp Pulse Resp BP Pulse Ox 36.9 C 90 16 95/55 L 92 09/25/16 07:06 09/25/16 07:06 09/25/16 07:06 09/25/16 07:06 09/25/16 07:06 Laboratory Results 09/25/16 06:30 09/25/16 06:30 09/24/16 09/25/16 09/26/16 05:59 05:59 05:59 Intake Total 2191 4501 Output Total 1230 660 400 Balance 961 3841 -400 Physical Exam - Physical Exam General Appearance: alert, no apparent distress, cachetic Respiratory: No respiratory distress, No accessory muscle use Cardiac/Chest: No edema Abdomen: non-tender, soft, other (PEG site clean.), No distended Skin: normal color, warm/dry Neuro/Psych: alert, normal mood/affect, oriented x 3 ICD10 Worksheet Patient Problems: Problems Problem Status Onset Cervical spinal cord injury Acute
[2016-09-25] MEDS: ATORVASTATIN CALCIUM 10 MG TAB TUBE SCH (21:08)
[2016-09-25] MEDS: DOXAZOSIN MESYLATE 1 MG TAB PO SCH (21:08)
[2016-09-26] MEDS: INSULIN LISPRO 100 UNIT/ML SC SCH ×4 (00:50→17:48)
[2016-09-26] MEDS: ACETAMINOPHEN 650 MG/20.3 ML UDCUP TUBE SCH ×4 (00:50→17:47)
[2016-09-26] MEDS: METOCLOPRAMIDE 10 MG/10 ML UDL TUBE SCH (09:28)
[2016-09-26] MEDS: metFORMIN HCL 500 MG TAB TUBE SCH ×2 (09:29→17:48)
[2016-09-26] MEDS: GABAPENTIN 250 MG/5 ML 30 ML BOTTLE TUBE SCH ×3 (09:30→21:14)
[2016-09-26] MEDS: ENOXAPARIN 40 MG/0.4 ML SYR SC SCH (09:30)
[2016-09-26] MEDS: CYANO/VITAMIN B12 1000 MCG TAB PO SCH (09:31)
[2016-09-26] MEDS: LANSOPRAZOLE SUSP 30MG/10ML UDSYR (Adult) TUBE SCH (09:31)
[2016-09-26] MEDS: GLIMEPIRIDE 2 MG TAB PO SCH (09:31)
[2016-09-26] MEDS: LISINOPRIL 2.5 MG TAB TUBE SCH (12:32)
[2016-09-26] MEDS ORDERED: INSULIN NPH HUMAN 100 UNITS/ML SYRINGE SC SCH (16:07)
--- NOTE | 2016-09-26 16:12 | SOAPPROG ---
SOAP Progress Note Assessment/Plan: Assessment: 70 year old right handed man who suffered a traumatic SCI (central cord syndrome ) due to advanced cervical degenerative spondolytic stenosis with fall after being struck by a shopping cart now s/p C3-6 ACDF 08/26/2016 c/b paravertebral hematoma and severe dysphagia. Now s/p PEG placement. 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 Initial FIM 59. PEG site pain mostly resolved. Continue physical, and occupational therapy to optimize functional status and mobility. * Central Cord syndrome s/p C4-6 ACDF: Jo Simon at all times except hygiene. * Dysphagia and prevertebral hematoma. Advacned to DD2 & thin liquids 09/26/16. Continue COSTUME SEAMSTRESS. * Allodynia: Increasing gabapentin to 300-300-600. Improved. * F/E/N: Not tolerating Glucerna. D/W dietitian: changed to Vital AF 1.2 on ; tolerating 55 cc/hr. Change reglan from 10BID to 5 mg BID on 09/25/16; will d/c 09/26/16. Monitor for increased residuals. Plan for switch PO feeding per nursery worker. * PEG site/abd pain: Scheduled APAP 650 mg Q 6 hr. Continue tramadol 50 - 100 mg Q 4 hr PRN; offer30 min before therapies. Remote h/o PUD when he was taking ASA: will start PPI. Had abd CT 09/22/16: no abnormalities other than expected tissue thickening at PEG site. External disk was loosened further by IR Dr. Moore. Continue pain control. * DM2: Held metformin 1g BID s/p contrast administration; restarted 09/24/16 evening dose. Continue Glimepiride 4mg daily. Increased insulin NPH from 8u qHS to 10 U QHS; will increase to 12 U QHS on 09/26/16; continue low ISS Q6 hr * Anemia, likely post-op, improving will CTM * HTN, cont lisinopril 2.5mg * HLD, cont statin * Prophylaxis-> DVT, on LMWH. GI, not indicated F/U: NSG in 2 weeks (09/29? 10/06?) PCP after discharge Plan to d/c to home with 3-4STE with adult son and available for intermittent assist. Tentative discharge date 10/04/16. 09/26/16 16:09 Subjective: Still with mild LLQ discomfort. Ambulating 200' twice a day. Has not noticed any increased residuals of abdominal discomfort with metoclopramide decreased yesterday Objective: Vital Signs Temp Pulse Resp BP Pulse Ox 36.9 C 71 17 139/83 H 97 09/26/16 08:21 09/26/16 12:29 09/26/16 08:21 09/26/16 12:32 09/26/16 12:29 Laboratory Results 09/25/16 06:30 09/25/16 06:30 09/25/16 09/26/16 09/27/16 05:59 05:59 05:59 Intake Total 4501 2247 Output Total 660 1050 300 Balance 3841 1197 -300 Physical Exam - Physical Exam General Appearance: alert, no apparent distress, cachetic Respiratory: No respiratory distress, No accessory muscle use Cardiac/Chest: No edema Skin: normal color, warm/dry Neuro/Psych: alert, normal mood/affect, oriented x 3 ICD10 Worksheet Patient Problems: Problems Problem Status Onset Cervical spinal cord injury Acute
[2016-09-26] MEDS: DOXAZOSIN MESYLATE 1 MG TAB PO SCH (21:15)
[2016-09-26] MEDS: ATORVASTATIN CALCIUM 10 MG TAB TUBE SCH (21:16)
[2016-09-27] MEDS: ACETAMINOPHEN 650 MG/20.3 ML UDCUP TUBE SCH ×4 (00:04→18:58)
[2016-09-27] MEDS: INSULIN LISPRO 100 UNIT/ML SC SCH ×5 (00:04→21:14)
[2016-09-27] MEDS: LANSOPRAZOLE SUSP 30MG/10ML UDSYR (Adult) TUBE SCH (08:14)
[2016-09-27] MEDS: GLIMEPIRIDE 2 MG TAB PO SCH (08:15)
[2016-09-27] MEDS: LISINOPRIL 2.5 MG TAB TUBE SCH (08:15)
[2016-09-27] MEDS: metFORMIN HCL 500 MG TAB TUBE SCH ×2 (08:15→17:15)
[2016-09-27] MEDS: CYANO/VITAMIN B12 1000 MCG TAB PO SCH (08:16)
[2016-09-27] MEDS: GABAPENTIN 250 MG/5 ML 30 ML BOTTLE TUBE SCH (08:18)
--- NOTE | 2016-09-27 09:37 | SOAPPROG ---
SOAP Progress Note Assessment/Plan: Assessment: 70 year old right handed man who suffered a traumatic SCI (central cord syndrome ) due to advanced cervical degenerative spondolytic stenosis with fall after being struck by a shopping cart now s/p C3-6 ACDF 08/26/2016 c/b paravertebral hematoma and severe dysphagia. Now s/p PEG placement. 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 Initial FIM 55 on 09/20/16; improved to 85 on 09/27/16. Not cooperative with OT for ADLs; depends on to assist dressing etc. PEG site pain mostly resolved. Continue physical, and occupational therapy to optimize functional status and mobility. * Central Cord syndrome s/p C4-6 ACDF: [place] J at all times except hygiene. * Dysphagia and prevertebral hematoma. Advanced to DD2 & thin liquids 09/26/16. Continue MANPOWER DEVELOPMENT SPECIALIST MANAGER. * Allodynia: Resolved. D/C gabapentin; restart if symptom returns. * F/E/N: Vital AF 1.2 on 09/19/16; tolerating 55 cc/hr. Metoclopramide d/c'd 09/26. Now taking PO nutrition and hydration; TF per awning craftsperson. * PEG site/abd pain: Scheduled APAP 650 mg Q 6 hr. Continue tramadol 50 - 100 mg Q 4 hr PRN; offer30 min before therapies. Remote h/o PUD when he was taking ASA: will start PPI. Had abd CT 09/22/16: no abnormalities other than expected tissue thickening at PEG site. External disk was loosened further by IR Dr. Moore. Continue pain control. * DM2: Held metformin 1g BID s/p contrast administration; restarted 09/24/16 evening dose. Continue Glimepiride 4mg daily. Increased insulin NPH from 8u qHS to 10 U QHS; will increase to 12 U QHS on 09/26/16; increase to 14 U QHS ; change from low to standard ISS; change from Q6 hr to AC & HS. * Anemia, likely post-op, improving will CTM * HTN, cont lisinopril 2.5mg * HLD, cont statin * Prophylaxis: Mobility much improved. Enoxaparin D/C'd starting 09/27/16. GI, not indicated F/U: NSG Dr. Holloway 10/26/16 1530. PCP after discharge Attended staffing, 15 min. D/W case mgmt, nursing, PT, OT, MANPOWER DEVELOPMENT SPECIALIST MANAGER. Plan to d/c to 10/04 - 10/06/16, home with 3-4STE with adult son and available for intermittent assist, og son to return to [place] soon. 09/27/16 12:23 Subjective: Happy to be able to eat. Good appetite. Reports dysesthesia/allodynia resolved LUE and is willing to stop gabapentin. Objective: Vital Signs Temp Pulse Resp BP Pulse Ox 37.4 C 103 H 16 102/59 L 94 09/27/16 06:22 09/27/16 06:22 09/27/16 06:22 09/27/16 08:15 09/27/16 06:22 Laboratory Results 09/25/16 06:30 09/25/16 06:30 09/26/16 09/27/16 09/28/16 05:59 05:59 05:59 Intake Total 2247 3002 Output Total 1050 1050 650 Balance 1197 1952 -650 - Time Spent With Patient Time Spent With Patient: Greater than 35 minutes floor time today, including more than 50% of time in coordination of care during staffing meeting, and counseling patient. Physical Exam - Physical Exam General Appearance: alert, no apparent distress, cachetic Respiratory: No respiratory distress, No accessory muscle use Skin: normal color, warm/dry Extremities: other (Edema LUE. No tenderness medial upper arm/axilla.) Neuro/Psych: alert, normal mood/affect, oriented x 3 ICD10 Worksheet Patient Problems: Problems Problem Status Onset Cervical spinal cord injury Acute
[2016-09-27] MEDS: ATORVASTATIN CALCIUM 10 MG TAB TUBE SCH (21:12)
[2016-09-27] MEDS: DOXAZOSIN MESYLATE 1 MG TAB PO SCH (21:12)
[2016-09-27] MEDS: INSULIN NPH HUMAN 100 UNITS/ML SYRINGE SC SCH (21:13)
[2016-09-28] MEDS: ACETAMINOPHEN 650 MG/20.3 ML UDCUP TUBE SCH ×4 (00:15→17:51)
[2016-09-28] MEDS: metFORMIN HCL 500 MG TAB TUBE SCH ×2 (08:27→17:52)
[2016-09-28] MEDS: LISINOPRIL 2.5 MG TAB TUBE SCH (08:27)
[2016-09-28] MEDS: INSULIN LISPRO 100 UNIT/ML SC SCH ×4 (08:27→20:28)
[2016-09-28] MEDS: LANSOPRAZOLE SUSP 30MG/10ML UDSYR (Adult) TUBE SCH (08:27)
[2016-09-28] MEDS: GLIMEPIRIDE 2 MG TAB PO SCH (08:28)
[2016-09-28] MEDS: CYANO/VITAMIN B12 1000 MCG TAB PO SCH (08:28)
--- NOTE | 2016-09-28 14:44 | SOAPPROG ---
SOAP Progress Note Assessment/Plan: Assessment: 70 year old right handed man who suffered a traumatic SCI (central cord syndrome ) due to advanced cervical degenerative spondolytic stenosis with fall after being struck by a shopping cart now s/p C3-6 ACDF 08/26/2016 c/b paravertebral hematoma and severe dysphagia. Now s/p PEG placement. 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 Initial FIM 55 on 09/20/16; improved to 85 on 09/27/16. Not cooperative with OT for ADLs; depends on to assist dressing etc. PEG site pain mostly resolved. Continue physical, and occupational therapy to optimize functional status and mobility. * Central Cord syndrome s/p C4-6 ACDF: [place] J at all times except hygiene. * Dysphagia and prevertebral hematoma. Advanced to DD2 & thin liquids 09/26/16. Continue VACUUM KETTLE COOK. * Allodynia: Resolved. D/C gabapentin; restart if symptom returns. * F/E/N: Vital AF 1.2 on 09/19/16; tolerating 55 cc/hr. Metoclopramide d/c'd 09/26. Now taking PO nutrition and hydration; TF per boiler operators supervisor. LM for boiler operators supervisor 09/28/16 re plan for transition to oral. * PEG site/abd pain: Scheduled APAP 650 mg Q 6 hr. Continue tramadol 50 - 100 mg Q 4 hr PRN; offer30 min before therapies. Remote h/o PUD when he was taking ASA: will start PPI. Had abd CT 09/22/16: no abnormalities other than expected tissue thickening at PEG site. External disk was loosened further by IR Dr. Moore. Continue pain control. * DM2: Held metformin 1g BID s/p contrast administration; restarted 09/24/16 evening dose. Continue Glimepiride 4mg daily. Increased insulin NPH from 8u qHS to 10 U QHS; will increase to 12 U QHS on 09/26/16; increase to 14 U QHS ; change from low to standard ISS; change from Q6 hr to AC & HS. Will increase NPH further to 16 U QHS on 09/28/16. Monitor closely as he transitions to PO feeding. * Anemia, likely post-op, improving will CTM * HTN, cont lisinopril 2.5mg * HLD, cont statin * Prophylaxis: Mobility much improved. Enoxaparin D/C'd starting 09/27/16. GI, not indicated F/U: NSG Dr. Holloway 10/26/16 3500. PCP after discharge Plan to d/c to 10/04 - 10/06/16, home with 3-4STE with adult son and available for intermittent assist, though son to return to [place] soon. 09/28/16 14:41 Subjective: Reports his 98 yo mother in [place] has pneumonia, and he's worried about her. A planned visit was postponed due to his injury and surgery. Otherwise doing well, no pain, ate most of breakfast and some of lunch. Objective: Vital Signs Temp Pulse Resp BP Pulse Ox 37.1 C 88 14 126/85 H 95 09/28/16 07:52 09/28/16 07:52 09/28/16 07:52 09/28/16 08:27 09/28/16 07:52 Laboratory Results 09/25/16 06:30 09/25/16 06:30 09/27/16 09/28/16 09/29/16 05:59 05:59 05:59 Intake Total 3002 472 237 Output Total 1050 800 Balance 1952 -328 237 Physical Exam - Physical Exam General Appearance: alert, no apparent distress, cachetic Respiratory: normal breath sounds, No crackles, No rhonchi, No wheezing Cardiac/Chest: regular rate, rhythm, No edema Skin: normal color, warm/dry Neuro/Psych: alert, normal mood/affect, oriented x 3 ICD10 Worksheet Patient Problems: Problems Problem Status Onset Cervical spinal cord injury Acute
[2016-09-28] MEDS: CEPHALEXIN 500 MG CAP PO SCH (17:52)
[2016-09-28] MEDS: ATORVASTATIN CALCIUM 10 MG TAB TUBE SCH (20:28)
[2016-09-28] MEDS: DOXAZOSIN MESYLATE 1 MG TAB PO SCH (20:28)
[2016-09-28] MEDS: INSULIN NPH HUMAN 100 UNITS/ML SYRINGE SC SCH (20:29)
[2016-09-29] MEDS: ACETAMINOPHEN 650 MG/20.3 ML UDCUP TUBE SCH ×5 (00:15→23:53)
[2016-09-29] MEDS: CEPHALEXIN 500 MG CAP PO SCH ×5 (00:15→23:41)
[2016-09-29] MEDS: INSULIN LISPRO 100 UNIT/ML SC SCH ×6 (08:34→20:32)
[2016-09-29] MEDS: metFORMIN HCL 500 MG TAB TUBE SCH ×2 (08:34→17:51)
[2016-09-29] MEDS: LANSOPRAZOLE SUSP 30MG/10ML UDSYR (Adult) TUBE SCH (09:23)
[2016-09-29] MEDS: GLIMEPIRIDE 2 MG TAB PO SCH (09:23)
--- NOTE | 2016-09-29 09:23 | SOAPPROG ---
SOAP Progress Note Assessment/Plan: 70 year old right handed man who suffered a traumatic SCI (central cord syndrome ) due to advanced cervical degenerative spondylitic stenosis with fall after being struck by a shopping cart now s/p C3-6 ACDF 08/26/2016 c/b paravertebral hematoma and severe dysphagia. Now s/p PEG placement. Today plan to transition off of continuous tube feeding, plan to closely monitor DM as he is on insulin and a complicated regimen. All medical issues are new to this provider today. Holding lisinopril x1 as he was mildly hypotensive with some dizziness. Checking orthostatics. 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 Initial FIM 55 on 09/20/16; improved to 85 on 09/27/16. Not cooperative with OT for ADLs; depends on to assist dressing etc. PEG site pain mostly resolved. Continue physical, and occupational therapy to optimize functional status and mobility. * Central Cord syndrome s/p C4-6 ACDF: [place] J at all times except hygiene. * Dysphagia and prevertebral hematoma. Advanced to DD2 & thin liquids 09/26/16. Continue CASKET LINER. Taking improved PO. * Allodynia: Resolved. D/C gabapentin; restart if symptom returns. * F/E/N: Vital AF 1.2 on 09/19/16; tolerating 55 cc/hr. Metoclopramide d/c'd 09/26. Now taking PO nutrition and hydration; TF per benefits manager. Switching off of continuous TF 09/29, will supplement poor PO and also give HS bolus. * PEG site/abd pain: Scheduled APAP 650 mg Q 6 hr. Continue tramadol 50 - 100 mg Q 4 hr PRN; offer30 min before therapies. Remote h/o PUD when he was taking ASA: will start PPI. Had abd CT 09/22/16: no abnormalities other than expected tissue thickening at PEG site. External disk was loosened further by IR Dr. Moore. Continue pain control. * DM2: Held metformin 1g BID s/p contrast administration; restarted 09/24/16 evening dose. Continue Glimepiride 4mg daily. Increased insulin NPH from 8u qHS to 10 U QHS; will increase to 12 U QHS on 09/26/16; increase to 14 U QHS ; change from low to standard ISS; change from Q6 hr to AC & HS. Will increase NPH further to 16 U QHS on 09/28/16. Monitor closely as he transitions to PO feeding. Considering stopping glimepiride and metformin to switch entirely to insulin. For 09/29, adding lispro 2 units QAC given preceding insulin usage. Resolved/Stable: * Anemia, likely post-op, improving will CTM * HTN, cont lisinopril 2.5mg * HLD, cont statin * Prophylaxis: Mobility much improved. Enoxaparin D/C'd starting 09/27/16. GI, not indicated F/U: NSG Dr. Holloway 10/26/16 1530. PCP after discharge Plan to d/c to 10/04 - 10/06/16, home with 3-4STE with adult son and available for intermittent assist, though son to return to [place] soon. 09/29/16 09:07 09/29/16 09:26 Subjective: CC: oral intake No acute events overnight, taking improved PO dietary switching from continuous to bolus feeds including HS. Good appetite, eating slowly due to precautions. Son Paramjit with him. Sleeping well, no new pain or neuro changes. Objective: Vital Signs Temp Pulse Resp BP Pulse Ox 37.1 C 92 18 109/68 96 09/29/16 05:17 09/29/16 05:17 09/29/16 05:17 09/29/16 05:17 09/29/16 05:17 Laboratory Results 09/25/16 06:30 09/25/16 06:30 09/28/16 09/29/16 09/30/16 05:59 05:59 05:59 Intake Total 472 1524 Output Total 800 750 Balance -328 774 Physical Exam - Physical Exam General Appearance: alert, no apparent distress EENT: No scleral icterus (R), No scleral icterus (L) Neck: other ([place] j in place) Respiratory: No respiratory distress Cardiac/Chest: regular rate, rhythm Skin: normal color, warm/dry Extremities: No pedal edema, No swelling Neuro/Psych: alert, normal mood/affect, motor weakness (3/5 bilat finger abd), No speech abnormalities ICD10 Worksheet Patient Problems: Problems Problem Status Onset Decreased oral intake Acute Dysphagia Acute Cervical spinal cord injury Acute - ICD10 Problem Qualifiers (1) Dysphagia Qualifiers: Dysphagia type: unspecified Qualified Code(s): R13.10 - Dysphagia, unspecified (2) Decreased oral intake
[2016-09-29] MEDS: CYANO/VITAMIN B12 1000 MCG TAB PO SCH (09:24)
[2016-09-29] MEDS: LISINOPRIL 2.5 MG TAB TUBE SCH (09:27)
[2016-09-29] MEDS: INSULIN NPH HUMAN 100 UNITS/ML SYRINGE SC SCH (20:32)
[2016-09-29] MEDS: ATORVASTATIN CALCIUM 10 MG TAB TUBE SCH (20:32)
[2016-09-29] MEDS: DOXAZOSIN MESYLATE 1 MG TAB PO SCH (20:32)
[2016-09-30] MEDS: CEPHALEXIN 500 MG CAP PO SCH ×3 (05:56→17:21)
[2016-09-30] MEDS: ACETAMINOPHEN 650 MG/20.3 ML UDCUP TUBE SCH ×2 (05:56→12:51)
[2016-09-30] MEDS: GLIMEPIRIDE 2 MG TAB PO SCH (08:37)
[2016-09-30] MEDS: CYANO/VITAMIN B12 1000 MCG TAB PO SCH (08:37)
[2016-09-30] MEDS: LISINOPRIL 2.5 MG TAB TUBE SCH (08:38)
[2016-09-30] MEDS: LANSOPRAZOLE SUSP 30MG/10ML UDSYR (Adult) TUBE SCH (08:38)
[2016-09-30] MEDS: metFORMIN HCL 500 MG TAB TUBE SCH ×2 (08:44→17:21)
[2016-09-30] MEDS: INSULIN LISPRO 100 UNIT/ML SC SCH ×6 (08:59→21:34)
[2016-09-30] MEDS ORDERED: INSULIN NPH HUMAN 100 UNITS/ML SYRINGE SC SCH ×2 (12:58→12:59)
--- NOTE | 2016-09-30 14:57 | SOAPPROG ---
SOAP Progress Note Assessment/Plan: 70 year old right handed man who suffered a traumatic SCI (central cord syndrome ) due to advanced cervical degenerative spondylitic stenosis with fall after being struck by a shopping cart now s/p C3-6 ACDF 08/26/2016 c/b paravertebral hematoma and severe dysphagia. Now s/p PEG placement. Today plan to transition off of continuous tube feeding, plan to closely monitor DM as he is on insulin and a complicated regimen. All medical issues are new to this provider today. Holding lisinopril x1 as he was mildly hypotensive with some dizziness. Checking orthostatics. 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 Initial FIM 55 on 09/20/16; improved to 85 on 09/27/16. Not cooperative with OT for ADLs; depends on to assist dressing etc. PEG site pain mostly resolved. Continue physical, and occupational therapy to optimize functional status and mobility. * Central Cord syndrome s/p C4-6 ACDF: [place] J at all times except hygiene. * Dysphagia and prevertebral hematoma. Advanced to DD2 & thin liquids 09/26/16. 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 Taking improved PO. * Allodynia: Resolved. D/C gabapentin; restart if symptom returns. * F/E/N: Vital AF 1.2 on 09/19/16; tolerating 55 cc/hr. Metoclopramide d/c'd 09/26. Now taking PO nutrition and hydration; TF per roofing laborer. Switching off of continuous TF 09/29, doing well orally, will transition to just P.O. nutrition per dietary rec's. * PEG site/abd pain: Scheduled APAP 650 mg Q 6 hr. Continue tramadol 50 - 100 mg Q 4 hr PRN; offer30 min before therapies. Remote h/o PUD when he was taking ASA: will start PPI. Had abd CT 09/22/16: no abnormalities other than expected tissue thickening at PEG site. External disk was loosened further by IR Dr. Moore. Continue pain control. * DM2: Held metformin 1g BID s/p contrast administration; restarted 09/24/16 evening dose. Continue Glimepiride 4mg daily. Increased insulin NPH from 8u qHS to 10 U QHS; will increase to 12 U QHS on 09/26/16; increase to 14 U QHS ; change from low to standard ISS; change from Q6 hr to AC & HS. Will increase NPH further to 16 U QHS on 09/28/16. Monitor closely as he transitions to PO feeding. Considering stopping glimepiride and metformin to switch entirely to insulin. For 09/29, adding lispro 2 units QAC given preceding insulin usage. Blood sugar of 55 this a.m. and OK to switch to just P.O. per nutrition, D/c'ed lispro dosing and decreased HS NPH back to 6u pending HS sugars Resolved/Stable: * Anemia, likely post-op, improving will CTM * HTN, cont lisinopril 2.5mg * HLD, cont statin * Prophylaxis: Mobility much improved. Enoxaparin D/C'd starting 09/27/16. GI, not indicated F/U: NSG Dr. Holloway 10/26/16 1530. PCP after discharge Plan to d/c to 10/04 - 10/06/16, home with 3-4STE with adult son and available for intermittent assist, though son to return to [place] soon. 09/30/16 14:57 Subjective: No complaints. pain well controlled. No AMS or diaphoresis with hypoglycemia this a.m. Objective: Vital Signs Temp Pulse Resp BP Pulse Ox 36.8 C 95 16 115/65 95 09/30/16 06:04 09/30/16 06:04 09/30/16 06:04 09/30/16 08:38 09/30/16 06:04 Laboratory Results 09/25/16 06:30 09/25/16 06:30 09/29/16 09/30/16 10/01/16 05:59 05:59 06:59 Intake Total 1524 880 930 Output Total 750 600 500 Balance 774 280 430 - Pending Discharge Pending Discharge Within 24 Hours: No Pending Discharge Within 48 Hours: No Physical Exam - Physical Exam General Appearance: alert, no apparent distress EENT: other (collar inplace) Respiratory: lungs clear, normal breath sounds, No respiratory distress Cardiac/Chest: regular rate, rhythm Abdomen: normal bowel sounds, non-tender, other (PEG site c/d/i) Skin: normal color Neuro/Psych: alert, normal mood/affect, oriented x 3 ICD10 Worksheet Patient Problems: Problems Problem Status Onset Decreased oral intake Acute Dysphagia Acute Cervical spinal cord injury Acute
[2016-09-30] MEDS ORDERED: ACETAMINOPHEN 325 MG TAB PO PRN (15:33)
[2016-09-30] MEDS: ATORVASTATIN CALCIUM 10 MG TAB TUBE SCH (21:34)
[2016-09-30] MEDS: DOXAZOSIN MESYLATE 1 MG TAB PO SCH (21:34)
[2016-09-30] MEDS: INSULIN NPH HUMAN 100 UNITS/ML SYRINGE SC SCH (22:25)
[2016-10-01] MEDS: CEPHALEXIN 500 MG CAP PO SCH ×5 (00:05→23:56)
[2016-10-01] MEDS: GLIMEPIRIDE 2 MG TAB PO SCH (08:46)
[2016-10-01] MEDS: LISINOPRIL 2.5 MG TAB TUBE SCH (08:46)
[2016-10-01] MEDS: CYANO/VITAMIN B12 1000 MCG TAB PO SCH (08:46)
[2016-10-01] MEDS: metFORMIN HCL 500 MG TAB TUBE SCH ×2 (08:47→17:29)
[2016-10-01] MEDS: PANTOPRAZOLE SODIUM 40 MG TAB PO SCH (08:47)
[2016-10-01] MEDS: INSULIN LISPRO 100 UNIT/ML SC SCH (09:13)
--- NOTE | 2016-10-01 10:22 | SOAPPROG ---
SOAP Progress Note Assessment/Plan: 70 year old right handed man who suffered a traumatic SCI (central cord syndrome ) due to advanced cervical degenerative spondylitic stenosis with fall after being struck by a shopping cart now s/p C3-6 ACDF 08/26/2016 c/b paravertebral hematoma and severe dysphagia. Now s/p PEG placement. Today plan to transition off of continuous tube feeding, plan to closely monitor DM as he is on insulin and a complicated regimen. All medical issues are new to this provider today. Holding lisinopril x1 as he was mildly hypotensive with some dizziness. Checking orthostatics. 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 Initial FIM 55 on 09/20/16; improved to 85 on 09/27/16. Not cooperative with OT for ADLs; depends on to assist dressing etc. PEG site pain mostly resolved. Continue physical, and occupational therapy to optimize functional status and mobility. * Central Cord syndrome s/p C4-6 ACDF: [place] J at all times except hygiene. * Dysphagia and prevertebral hematoma. Advanced to DD2 & thin liquids 09/26/16. Continue LEASING DIRECTOR. Taking improved PO. * Allodynia: Resolved. D/C gabapentin; restart if symptom returns. * F/E/N: Vital AF 1.2 on 09/19/16; tolerating 55 cc/hr. Metoclopramide d/c'd 09/26. Now taking PO nutrition and hydration; TF per typesetter perforator operator. Switching off of continuous TF 09/29, doing well orally, will transition to just P.O. nutrition per dietary rec's. * PEG site/abd pain: Scheduled APAP 650 mg Q 6 hr. Continue tramadol 50 - 100 mg Q 4 hr PRN; offer30 min before therapies. Remote h/o PUD when he was taking ASA: will start PPI. Had abd CT 09/22/16: no abnormalities other than expected tissue thickening at PEG site. External disk was loosened further by IR Dr. Moore. Continue pain control. * DM2: Held metformin 1g BID s/p contrast administration; restarted 09/24/16 evening dose. Continue Glimepiride 4mg daily. Increased insulin NPH from 8u qHS to 10 U QHS; will increase to 12 U QHS on 09/26/16; increase to 14 U QHS ; change from low to standard ISS; change from Q6 hr to AC & HS. Will increase NPH further to 16 U QHS on 09/28/16. Monitor closely as he transitions to PO feeding. Considering stopping glimepiride and metformin to switch entirely to insulin. For 09/29, adding lispro 2 units QAC given preceding insulin usage. Blood sugars low (55-100) in setting of transition to all P.O., D /c'ed lispro TID dosing and decreased HS NPH back to 6u with suspension of ISS for now Resolved/Stable: * Anemia, likely post-op, improving will CTM * HTN, cont lisinopril 2.5mg * HLD, cont statin * Prophylaxis: Mobility much improved. Enoxaparin D/C'd starting 09/27/16. GI, not indicated F/U: NSG Dr. Holloway 10/26/16 1530. PCP after discharge Plan to d/c to 10/04 - 10/06/16, home with 3-4STE with adult son and available for intermittent assist, though son to return to [place] soon. Subjective: No complaints. Blood sugar was again a bit low in evening (76) so insulin was held and given a brief tube feed to elevate. No signs or symptoms. Objective: Vital Signs Temp Pulse Resp BP Pulse Ox 36.8 C 95 16 123/79 H 95 10/01/16 08:26 10/01/16 08:26 10/01/16 08:26 10/01/16 08:46 10/01/16 08:26 Laboratory Results 09/25/16 06:30 09/25/16 06:30 09/30/16 10/01/16 10/02/16 04:59 05:59 05:59 Intake Total Output Total Balance - Pending Discharge Pending Discharge Within 24 Hours: No Pending Discharge Within 48 Hours: No Physical Exam - Physical Exam General Appearance: alert, no apparent distress Neck: other (collar in place) Respiratory: lungs clear, normal breath sounds, No respiratory distress Cardiac/Chest: regular rate, rhythm Abdomen: non-tender, soft, other (PEG c/d/i) Skin: normal color, warm/dry Neuro/Psych: alert, normal mood/affect, oriented x 3, No speech abnormalities ICD10 Worksheet Patient Problems: Problems Problem Status Onset Decreased oral intake Acute Dysphagia Acute Cervical spinal cord injury Acute
[2016-10-01] MEDS: ATORVASTATIN CALCIUM 10 MG TAB TUBE SCH (21:02)
[2016-10-01] MEDS: DOXAZOSIN MESYLATE 1 MG TAB PO SCH (21:02)
[2016-10-01] MEDS: INSULIN NPH HUMAN 100 UNITS/ML SYRINGE SC SCH (21:03)
[2016-10-02] MEDS: CEPHALEXIN 500 MG CAP PO SCH ×3 (06:04→17:29)
[2016-10-02] MEDS: CYANO/VITAMIN B12 1000 MCG TAB PO SCH (08:45)
[2016-10-02] MEDS: GLIMEPIRIDE 2 MG TAB PO SCH (08:45)
[2016-10-02] MEDS: LISINOPRIL 2.5 MG TAB TUBE SCH (08:47)
[2016-10-02] MEDS: metFORMIN HCL 500 MG TAB TUBE SCH ×2 (08:47→17:29)
[2016-10-02] MEDS: PANTOPRAZOLE SODIUM 40 MG TAB PO SCH (08:47)
--- NOTE | 2016-10-02 15:12 | SOAPPROG ---
SOAP Progress Note Assessment/Plan: Assessment/Plan: 70 year old right handed man who suffered a traumatic SCI (central cord syndrome ) due to advanced cervical degenerative spondylitic stenosis with fall after being struck by a shopping cart now s/p C3-6 ACDF 08/26/2016 c/b paravertebral hematoma and severe dysphagia. Now s/p PEG placement. 10/02 pt doing well with therapies, skin healthy, OK to sleep through night. 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 Initial FIM 55 on 09/20/16; improved to 85 on 09/27/16. Not cooperative with OT for ADLs; depends on to assist dressing etc. PEG site pain mostly resolved. Continue physical, and occupational therapy to optimize functional status and mobility. * Central Cord syndrome s/p C4-6 ACDF: [place] J at all times except hygiene. * Dysphagia and prevertebral hematoma. Advanced to DD2 & thin liquids 09/26/16. Continue ADMIN ASST. Taking improved PO. * F/E/N: Vital AF 1.2 on 09/19/16; tolerating 55 cc/hr. Metoclopramide d/c'd 09/26. Now taking PO nutrition and hydration; TF per creative recruiter. Switching off of continuous TF 09/29, doing well orally, transitioned to PO nutrition * PEG site/abd pain: Scheduled APAP 650 mg Q 6 hr. Continue tramadol 50 - 100 mg Q 4 hr PRN; offer 30 min before therapies. Remote h/o PUD when he was taking ASA: will start PPI. Had abd CT 09/22/16: no abnormalities other than expected tissue thickening at PEG site. External disk was loosened further by IR Dr. Moore. Continue pain control, continues to have mild distention. * DM2: Held metformin 1g BID s/p contrast administration; restarted 09/24/16 evening dose. Continue Glimepiride 4mg daily. Monitor closely as he transitions to PO feeding. Blood glucose reasonably controlled over past 24 hr , will maintain current regimen while he is improving PO nutrition. Resolved/Stable: * Anemia, likely post-op, improving will CTM * HTN, cont lisinopril 2.5mg * HLD, cont statin * Prophylaxis: Mobility much improved. Enoxaparin D/C'd starting 09/27/16. GI, not indicated * Allodynia: Resolved. D/C gabapentin; restart if symptom returns. F/U: NSG Dr. Holloway 10/26/16 [id number]. PCP after discharge Plan to d/c to 10/04 - 10/06/16, home with 3-4STE with adult son and available for intermittent assist, though son to return to [place] soon. Subjective: CC: blood glucose No acute events overnight. Glucose has been 96-157 over the past 24 hr while off of SSI, transitioning to all PO diet. Continues to have full sensation in abdomen, otherwise no pain, hoping to get additional sleep at night. His appetite is fair. Objective: Vital Signs Temp Pulse Resp BP Pulse Ox 36.8 C 84 16 105/61 97 10/02/16 08:00 10/02/16 08:00 10/02/16 08:00 10/02/16 08:47 10/02/16 08:00 Laboratory Results 09/25/16 06:30 09/25/16 06:30 10/01/16 10/02/16 10/03/16 05:59 05:59 05:59 Intake Total 1686 456 Output Total 600 Balance 1086 456 Physical Exam - Physical Exam General Appearance: alert, no apparent distress EENT: No scleral icterus (R), No scleral icterus (L) Respiratory: No respiratory distress, No accessory muscle use Cardiac/Chest: regular rate, rhythm Abdomen: distended, No guarding Skin: normal color, warm/dry Extremities: No swelling Neuro/Psych: alert, normal mood/affect, other (Ambulating with walker in hallway with therapy, CGA) ICD10 Worksheet Patient Problems: Problems Problem Status Onset Decreased oral intake Acute Dysphagia Acute Cervical spinal cord injury Acute - ICD10 Problem Qualifiers (1) Dysphagia Qualifiers: Dysphagia type: unspecified Qualified Code(s): R13.10 - Dysphagia, unspecified (2) Decreased oral intake
[2016-10-02] MEDS: ATORVASTATIN CALCIUM 10 MG TAB TUBE SCH (20:25)
[2016-10-02] MEDS: DOXAZOSIN MESYLATE 1 MG TAB PO SCH (20:25)
[2016-10-02] MEDS: INSULIN NPH HUMAN 100 UNITS/ML SYRINGE SC SCH (22:28)
[2016-10-03] MEDS: CEPHALEXIN 500 MG CAP PO SCH ×3 (00:06→12:31)
[2016-10-03] MEDS: GLIMEPIRIDE 2 MG TAB PO SCH (08:50)
[2016-10-03] MEDS: PANTOPRAZOLE SODIUM 40 MG TAB PO SCH (08:51)
[2016-10-03] MEDS: LISINOPRIL 2.5 MG TAB TUBE SCH (08:51)
[2016-10-03] MEDS: CYANO/VITAMIN B12 1000 MCG TAB PO SCH (08:51)
[2016-10-03] MEDS: metFORMIN HCL 500 MG TAB TUBE SCH ×2 (08:51→18:19)
--- NOTE | 2016-10-03 14:34 | SOAPPROG ---
SOAP Progress Note Assessment/Plan: Assessment: 70 year old right handed man who suffered a traumatic SCI (central cord syndrome ) due to advanced cervical degenerative spondolytic stenosis with fall after being struck by a shopping cart now s/p C3-6 ACDF 08/26/2016 c/b paravertebral hematoma and severe dysphagia. Now s/p PEG placement. 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 Initial FIM 55 on 09/20/16; improved to 85 on 09/27/16. Not cooperative with OT for ADLs; depends on to assist dressing etc. PEG site pain mostly resolved. Continue physical, and occupational therapy to optimize functional status and mobility. * Central Cord syndrome s/p C4-6 ACDF: [place] J at all times except hygiene. * Dysphagia and prevertebral hematoma. Advanced to DD3 & thin liquids. 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 * Allodynia: Resolved. D/C gabapentin; restart if symptom returns. * F/E/N: Transitioned to PO feeding; gaining weight. Metoclopramide d/c'd . * PEG site/abd pain: Resolved. Remote h/o PUD when he was taking ASA: started PPI 10/01/16. Had abd CT 09/22/16: no abnormalities other than expected tissue thickening at PEG site. External disk was loosened further by IR Dr. Moore. Continue pain control. * DM2: No need for glargine insulin since TF stopped. Continue metformin and glimepride. Continue ISS AC & HS. * Anemia, likely post-op, improving will CTM * HTN, cont lisinopril 2.5mg * HLD, cont statin * Prophylaxis: Mobility much improved. Enoxaparin D/C'd starting 09/27/16. GI, not indicated D/C tomorrow 10/04/16; will travel to [place] to visit mother on hospice. Follow-up PCP Dr. Lynch in one week; Neurosurgeon Dr. Holloway 10/26/16 1540. 10/03/16 14:27 Subjective: Irritation resolved at PEG site. Concerned re correct placement of C-collar. No f/c, cough/dyspnea. Objective: Vital Signs Temp Pulse Resp BP Pulse Ox 37.1 C 84 16 106/64 93 10/03/16 08:00 10/03/16 08:00 10/03/16 08:00 10/03/16 08:51 10/03/16 08:00 Laboratory Results 09/25/16 06:30 09/25/16 06:30 10/02/16 10/03/16 10/04/16 05:59 05:59 05:59 Intake Total 1686 1296 Output Total 600 800 Balance 1086 496 Physical Exam - Physical Exam General Appearance: alert, no apparent distress, cachetic Respiratory: No respiratory distress, No accessory muscle use Abdomen: non-tender, soft, No distended Skin: normal color, warm/dry, other (minimal erythema and crusting at PEG site) Neuro/Psych: no motor/sensory deficits, alert, normal mood/affect, oriented x 3 ICD10 Worksheet Patient Problems: Problems Problem Status Onset Decreased oral intake Acute Dysphagia Acute Cervical spinal cord injury Acute
--- NOTE | 2016-10-03 14:41 | PDOREHIP ---
Admission [facility] - Admission - 3 Day Assessment Period Admission Date/Day 1: 09/16/16 Day 2: 09/17/16 Day 3: 09/18/16 Discharge [facility] - Discharge - 3 Day Assessment Period 2 Days Prior to Anticipated Discharge Date: 10/03/16 1 Day Prior to Anticipated Discharge Date: 10/04/16 Anticipated Discharge Date: 10/05/16 - Discharge Skin Conditions Unhealed Pressure Ulcer (1 or more/Stage 1 or >)-Discharge: 0. No
[2016-10-03] MEDS: INSULIN LISPRO 100 UNIT/ML SC SCH ×2 (17:00→21:14)
[2016-10-03 20:01] VITALS: TEMP 98.4
[2016-10-03] MEDS: DOXAZOSIN MESYLATE 1 MG TAB PO SCH (20:11)
[2016-10-03] MEDS: ATORVASTATIN CALCIUM 10 MG TAB TUBE SCH (20:11)
[2016-10-04] MEDS: INSULIN LISPRO 100 UNIT/ML SC SCH ×2 (07:37→12:02)
[2016-10-04] MEDS: metFORMIN HCL 500 MG TAB TUBE SCH (08:24)
[2016-10-04] MEDS: CYANO/VITAMIN B12 1000 MCG TAB PO SCH (08:26)
[2016-10-04] MEDS: GLIMEPIRIDE 2 MG TAB PO SCH (08:26)
[2016-10-04] MEDS: PANTOPRAZOLE SODIUM 40 MG TAB PO SCH (08:27)
[2016-10-04] MEDS: LISINOPRIL 2.5 MG TAB TUBE SCH (08:28)
[2016-10-04 08:30] VITALS: BP 115/69
[2016-10-04 11:22] VITALS: PULSE 90; RESP 16; O2SAT 96
--- NOTE | 2016-10-04 14:04 | PDOREHIP ---
Admission [facility] - Admission - 3 Day Assessment Period Admission Date/Day 1: 09/16/16 Day 2: 09/17/16 Day 3: 09/18/16 Discharge [facility] - Discharge - 3 Day Assessment Period 2 Days Prior to Anticipated Discharge Date: 10/02/16 1 Day Prior to Anticipated Discharge Date: 10/03/16 Anticipated Discharge Date: 10/04/16 - Discharge Skin Conditions Unhealed Pressure Ulcer (1 or more/Stage 1 or >)-Discharge: 0. No
--- NOTE | 2016-10-04 15:36 | GDS ---
[f rep st] DISCHARGE SUMMARY ADMITTING DIAGNOSIS: Central cord syndrome and cervical stenosis, status post C3-C6 anterior cervical discectomy and fusion. DISCHARGE DIAGNOSIS: Central cord syndrome and cervical stenosis, status post C3-C6 anterior cervical discectomy and fusion. OTHER DIAGNOSES: Dysphagia, diabetes mellitus type 2, cachexia. CONSULTATIONS: He was seen in consultation by Interventional Radiology. PROCEDURES: He had a Gastrografin study of his PEG tube and then a CT of the abdomen. COMPLICATIONS: Pain from the PEG tube. HISTORY AND HOSPITAL COURSE: Mr. Gonzales had surgery on 08/26/2016. He had fallen and suffered a central cord syndrome. He had advanced cervical degenerative spondylitic stenosis. He underwent surgery and was stabilized postsurgically and discharged to inpatient rehabilitation. He had significant dysphagia due to a paravertebral hematoma, and a percutaneous endogastric tube was placed for feeding the day before discharge to inpatient rehabilitation. He had gradual improvement in inpatient rehabilitation. His course was complicated by severe abdominal pain at and around the PEG tube site as well as high residuals on his tube feeding. He had a Gastrografin study which showed patency to the tube feeding. He was placed on metoclopramide and eventually had improvement in his residuals. His abdominal pain persisted so he ultimately had a CT scan of his abdomen which ruled out any significant abnormalities. He had the external bumper loosened by Interventional Radiology. He was also placed on a proton pump inhibitor as he had a remote history of peptic ulcer disease, and he had progressive improvement in his pain. Once his pain improved, he was able to progress in rehabilitation. His initial functional independence measure (FIM) was 55 on 09/20/16. This is consistent with needing considerable assistance in all mobility-related tasks and activities of daily living at the senior living level; this improved to 85 as of 10/07/2016, which is consistent with assisted living level of function, and ultimately before discharge, he was independent with bed mobility and transfers, was walking 150 feet or more with no assisted device, and was able to climb 12 stairs with 1 rail. Regarding occupational therapy goals, he required minimal assist for dressing, distance supervision for toileting and for toilet transfers. He was otherwise independent with mobility and transfers. His dysphagia improved with speech therapy, and he was eventually advanced to a dysphagia 3 diet with thin liquids. He was able to take medications whole in puree. Regarding medical issues, his pain resolved. There were difficulties with blood sugar control while he was on tube feeding, but once he was changed to oral feeding his blood sugar improved considerably. He had been on insulin as well as metformin and glimepiride. The insulin was discontinued completely. He had had allodynia, especially in the left upper extremity for which he had been treated with gabapentin, and this was able to be discontinued. With his improved ambulation, enoxaparin was discontinued on 09/27/2016. LABORATORY DATA: On 09/25/2016, he had anemia with a hemoglobin of 10.1 and hematocrit of 30.2. This was not retested. His blood sugars on his last day ranged from 87-185. On 09/25/2016, renal function and electrolytes were overall within normal limits. PHYSICAL EXAM: VITAL SIGNS: On the day of discharge, blood pressure is 115/69 , heart rate is 90, respiratory rate is 16, oxygen saturation is 96% on room air , temperature is 36.9 degrees centigrade. GENERAL: This is a thin man, appears his chronologic age, cooperative, and in no acute distress. HEART: Regular rate and rhythm with no murmurs, rubs, or gallops. LUNGS: Clear to auscultation bilaterally. ABDOMEN: Soft, nontender, nondistended with normoactive bowel sounds. The PEG tube site has minimal crusting and erythema and is nontender. EXTREMITIES: There is no cyanosis, clubbing, or edema. DISCHARGE PLAN: Condition upon discharge is good. Activity is ad rober. Diet: Regular with a dysphagia 3 texture and thin liquids. DATE OF NEXT APPOINTMENT: He is to follow up with neurosurgeon, Dr. Holloway, on 10/26/2016 at 1540 and with his primary care provider, Dr. Lynch in approximately 1 week after discharge. He has learned during the course of his stay that his mother is on hospice care in [place], and he is planning to travel to [place] the day after discharge, and then will return to [place] for followups. MEDICATIONS AT DISCHARGE: 1. Cyanocobalamin 1000 mcg p.o. daily. 2. Acetaminophen 325, 650 mg p.o. q.4 hours p.r.n. 3. Metformin 1000 mg p.o. twice daily. 4. Simvastatin 20 mg p.o. daily. 5. Pantoprazole 40 mg p.o. daily. 6. Lisinopril 2.5 mg p.o. daily. 7. Glimepiride 4 mg p.o. daily. 8. Doxazosin 2 mg p.o. at bedtime. /[id number]/MODL MTDD
== END 2016-10-04 12:57 | disposition home health service (06) | DRG 946 ==
LOC: BREH 09-16 13:25
PROVIDERS: ADMIT Physical Medicine & Rehabilitation; ATTEND Internal Medicine
PROC: F07M3ZZ Motor Function Treatment of Musculoskeletal System - Whole Body (ICD-10-PCS; principal; 2016-09-16)
PROC: F0636ZZ Communicative/Cognitive Integration Skills Treatment of Neurological System - Whole Body (ICD-10-PCS; principal; 2016-09-16)
DX: S14.129D Central cord syndrome at unspecified level of cervical spinal cord, subsequent encounter (principal); E11.9 Type 2 diabetes mellitus without complications; R13.10 Dysphagia, unspecified; D64.9 Anemia, unspecified; I10 Essential (primary) hypertension; E78.5 Hyperlipidemia, unspecified; Z93.1 Gastrostomy status; W18.39XD Other fall on same level, subsequent encounter; W22.8XXD Striking against or struck by other objects, subsequent encounter; Z79.84 Long term (current) use of oral hypoglycemic drugs; G89.0 Central pain syndrome; Z98.1 Arthrodesis status
CPT/HCPCS: 92526; 92610; 97110-GO; 97110-GP; 97112-GO; 97112-GP; 97116-GP; 97140-GO; 97162-GP; 97166-GO; 97530-GO; 97530-GP; 97535-GO; J1650; J1815; Q9967

== ENCOUNTER 2016-09-17 19:04 | Emergency (ER) | payer OTHER ==
[2016-09-17 19:11] VITALS: TEMP 98.8
[2016-09-17] MEDS ORDERED: NS 1,000 ML IV ONE (19:14)
--- NOTE | 2016-09-17 19:21 | EDPHY ---
H & P Stated Complaint: PEG tube placement Time Seen by Provider: 09/17/16 19:09 HPI/ROS: CHIEF COMPLAINT: Peg tube concerns HISTORY OF PRESENT ILLNESS: CHIEF COMPLAINT: The patient is a 70-year-old man who comes to the emergency department with his family concerned that the PEG tube is not working. I saw him here 3 weeks ago when he slipped on the ice and developed a central cord syndrome. He was operated on by Neurosurgery and had an anterior cervical fusion of see 3-6 on August 26. He developed a perivertebral hematoma and severe dysphasia. He was on TPN until 2 days ago when a PEG tube was placed by interventional Radiology. He was then transferred yesterday to rehabilitation services. Today he was being fed through the PEG tube and nurse's felt like he was not having enough stool output. He did have a loose bowel movement last night according to his . They initially turn down the feeding and then stop that at 4:00 p.m.. The patient had significant residuals. They then sent him here for outpatient x- ray to verify tube placement. Family asked to be seen in the emergency department while they were an x-ray because they are concerned about tube placement and also dehydration. REVIEW OF SYSTEMS: Constitutional: denies: chills, fever, recent illness, recent injury EENTM: denies: blurred vision, double vision, nose congestion Respiratory: denies: cough, shortness of breath Cardiac: denies: chest pain, irregular heart rate, lightheadedness, palpitations Gastrointestinal/Abdominal: See HPI Genitourinary: denies: dysuria, frequency, hematuria, pain Musculoskeletal: denies: joint pain, muscle pain Skin: denies: lesions, rash, jaundice, bruising Neurological: denies: headache, numbness, paresthesia, tingling, dizziness, weakness Hematologic/Lymphatic: denies: blood clots, easy bleeding, easy bruising Immunologic/allergic: denies: HIV/AIDS, transplant EXAM: GENERAL: Well-appearing, well-nourished and in no acute distress. HEAD: Atraumatic, normocephalic. EYES: Pupils equal round and reactive to light, extraocular movements intact, sclera anicteric, conjunctiva are normal. ENT: TMs normal, nares patent, oropharynx clear without exudates. Moist mucous membranes. NECK: Normal range of motion, supple without lymphadenopathy or JVD. LUNGS: Breath sounds clear to auscultation bilaterally and equal. No wheezes rales or rhonchi. HEART: Regular rate and rhythm without murmurs, rubs or gallops. ABDOMEN: Mild distention, no tenderness, PEG tube in place, no erythema or leaking or drainage. BACK: No CVA tenderness, no spinal tenderness, step-offs or deformities EXTREMITIES: Normal range of motion, no pitting or edema. No clubbing or cyanosis. NEUROLOGICAL: Cranial nerves II through XII grossly intact. Normal speech, 5/ 5 strength in lower extremities, 4/5 in right arm 3/5 in left arm with mild contractures. normal sensation PSYCH: Normal mood, normal affect. SKIN: Warm, dry, normal turgor, no visible rashes or lesions. Source: Patient Exam Limitations: No limitations - Personal History Current Tetanus/Diphtheria Vaccine: Yes Current Tetanus Diphtheria and Acellular Pertussis (TDAP): Yes - Medical/Surgical History Hx Asthma: No Hx Chronic Respiratory Disease: No Hx Diabetes: Yes Hx Cardiac Disease: No Hx Renal Disease: No Hx Cirrhosis: No Hx Alcoholism: No Hx HIV/AIDS: No Hx Splenectomy or Spleen Trauma: No Other PMH: Central cord syndrome, DM, high cholesterol - Family History Significant Family History: No pertinent family hx - Social History Smoking Status: Never smoked Alcohol Use: Sober Constitutional: Initial Vital Signs Temperature (C) 37.1 C 09/17/16 19:04 Heart Rate 88 09/17/16 19:04 Respiratory Rate 16 09/17/16 19:04 Blood Pressure 125/73 H 09/17/16 19:04 O2 Sat (%) 93 09/17/16 19:04 O2 Delivery Mode Room Air Allergies/Adverse Reactions: No Known Allergies Allergy (Unverified 08/26/16 13:16) Home Medications: Medication Instructions Recorded Cyanocobalamin [Vitamin B12 (*)] 1,000 mcg PO DAILY 08/26/16 Glimepiride [Amaryl] 4 mg PO DAILY 08/26/16 Lisinopril [Zestril 2.5 mg (*)] 2.5 mg PO DAILY 08/26/16 NPH, HUMAN INSULIN ISOPHANE 8 unit SQ HS 08/26/16 [NOVOLIN N] Simvastatin [Zocor] 20 mg PO DAILY@19 08/26/16 metFORMIN HCL [Glucophage 500 mg 1,000 mg PO BIDMEAL 08/26/16 (*)] Acetaminophen [Tylenol 325mg (*)] 325 - 650 mg PO Q4HRS PRN #0 tab 09/16/16 Acetaminophen [Tylenol Supp 325mg 325 - 650 mg RI Q6 PRN #0 supp 09/16/16 (*)] Diazepam [Valium Injection (*)] 2.5 - 5 mg IVP QID PRN #0 syr 09/16/16 Enoxaparin [Lovenox 40 MG (*)] 40 mg SC DAILY #0 syr 09/16/16 Gabapentin [Neurontin 300 MG (*)] 300 mg PO TID #0 cap 09/16/16 Methocarbamol [Robaxin 750 mg (*)] 750 mg PO QID PRN #0 tab 09/16/16 Medical Decision Making - Diagnostics Imaging: X-ray: Abdominal x-ray was obtained. I viewed the images myself on the PACS system. My interpretation of the images is: Peg tube in place. The radiologist interpretation is peg tube in place no free air no sign of obstruction. ED Course/Re-evaluation: 8:45 p.m. I had a long discussion with the patient and and son. The patient's was concerned about returning to rehab when his PEG tube feedings are not absorbing properly. We discussed the rehab is likely the best place for him with this situation and that they are very competent with these medical procedures and practices. I spoke with Dr. Ivory the rehabilitation physician who states that he does not feel the patient has an indication for admission to the inpatient hospital service and will consent back to rehabilitation. He did not intend for the patient to come to the ER but simply to get x-rays on return. I spoke again with the family about this and they are agreeable to returning to rehabilitation. Differential Diagnosis: Partial list of the Differential diagnosis considered include but were not limited to; ileus, obstruction, ischemia, tube displacement, medication reaction and although unlikely based on the history and physical exam, I also considered perforation, abscess, surgical complication. I discussed these differential diagnoses and the plan with the patient and as well as the usual and expected course. The patient understands that the diagnosis is provisional and that in medicine we are not always correct and that further workup is often warranted. Usual and customary warnings were given. All of the patient's questions were answered. The patient was instructed to return to the emergency department should the symptoms at all worsen or return, otherwise to followup with the physician as we discussed. - Data Points Laboratory Results: Laboratory Results 09/17/16 19:15 09/17/16 19:15 09/17/16 09/17/16 19:15 19:15 WBC 10.69 10^3/uL H 10^3/uL (3.80-9.50) RBC 3.54 10^6/uL L 10^6/uL (4.40-6.38) Hgb 10.9 g/dL L g/dL (13.7-17.5) Hct 32.4 % L % (40.0-51.0) MCV 91.5 fL fL (81.5-99.8) MCH 30.8 pg pg (27.9-34.1) MCHC 33.6 g/dL g/dL (32.4-36.7) RDW 13.1 % % (11.5-15.2) Plt Count 503 10^3/uL H 10^3/uL (150-400) MPV 9.6 fL fL (8.7-11.7) Neut % (Auto) 70.9 % % (39.3-74.2) Lymph % (Auto) 19.2 % % (15.0-45.0) Sharkey % (Auto) 7.0 % % (4.5-13.0) Eos % (Auto) 2.2 % % (0.6-7.6) Baso % (Auto) 0.3 % % (0.3-1.7) Nucleat RBC Rel Count 0.0 % % (0.0-0.2) Absolute Neuts (auto) 7.58 10^3/uL H 10^3/uL (1.70-6.50) Absolute Lymphs (auto) 2.05 10^3/uL 10^3/uL (1.00-3.00) Absolute Monos (auto) 0.75 10^3/uL 10^3/uL (0.30-0.80) Absolute Eos (auto) 0.24 10^3/uL 10^3/uL (0.03-0.40) Absolute Basos (auto) 0.03 10^3/uL 10^3/uL (0.02-0.10) Absolute Nucleated RBC 0.00 10^3/uL 10^3/uL (0-0.01) Immature Gran % 0.4 % % (0.0-1.1) Immature Gran # 0.04 10^3/uL 10^3/uL (0.00-0.10) Sodium 131 mEq/L L mEq/L (134-144) Potassium 4.9 mEq/L mEq/L (3.5-5.2) Chloride 97 mEq/L mEq/L (97-110) Carbon Dioxide 25 mEq/l mEq/l (22-31) Anion Gap 9 mEq/L mEq/L (8-16) BUN 27 mg/dL H mg/dL (7-23) Creatinine 0.8 mg/dL mg/dL (0.7-1.3) Estimated GFR > 60 Glucose 126 mg/dL H mg/dL (70-100) Calcium 11.5 mg/dL H mg/dL (8.5-10.4) Phosphorus 3.4 mg/dL mg/dL (2.5-4.5) Total Bilirubin 0.4 mg/dL mg/dL (0.1-1.4) Conjugated Bilirubin 0.4 mg/dL mg/dL (0.0-0.5) Unconjugated Bilirubin 0.0 mg/dL mg/dL (0.0-1.1) AST 34 IU/L IU/L (17-59) ALT 62 IU/L IU/L (21-72) Alkaline Phosphatase 81 IU/L IU/L (38-126) Total Protein 6.8 g/dL g/dL (6.3-8.2) Albumin 3.4 g/dL L g/dL (3.5-5.0) Lipase 65.0 IU/L IU/L (23-300) Medications Given: Discontinued Medications Sodium Chloride (Ns) 1,000 mls @ 0 mls/hr IV ONCE ONE PRN Reason: Wide Open Stop: 09/17/16 19:15 Last Admin: 09/17/16 19:21 Dose: 1,000 mls Departure - Departure Disposition: Home, Routine, Self-Care Clinical Impression: Status post insertion of percutaneous endoscopic gastrostomy (PEG) tube Central cord syndrome Qualifiers: Encounter type: subsequent encounter Qualified Code(s): S14.129D - Central cord syndrome at unspecified level of cervical spinal cord, subsequent encounter Condition: Fair Instructions: How to Use and Care for Your PEG Tube (ED) Referrals: SHARON COCHRAN [Primary Care Provider] - As per Instructions
[2016-09-17 19:24] LABS: % IMMATURE GRANULYOCYTES 0.4 % (0.0-1.1); ABSOLUTE IMMATURE GRANULOCYTES 0.04 10^3/uL (0.00-0.10); ADD DIFF? NO; ADD MORPH? NO; ADD SCAN? NO; ATYPICAL LYMPHOCYTE FLAG 0 (0-99); FRAGMENT RBC FLAG 0 (0-99); HEMATOCRIT 32.4 % (40.0-51.0); HEMOGLOBIN 10.9 g/dL (13.7-17.5); LEFT SHIFT FLG 20 (0-99); LIPEMIA HEMOLYSIS FLAG 80 (0-99); MEAN CELL HEMOGLOBIN 30.8 pg (27.9-34.1); MEAN CELL HEMOGLOBIN CONCENTR. 33.6 g/dL (32.4-36.7); MEAN CELL VOLUME 91.5 fL (81.5-99.8); MEAN PLATELET VOLUME 9.6 fL (8.7-11.7); PLATELET CLUMPS FLAG 0 (0-99); PLATELET COUNT 503 10^3/uL (150-400); RED BLOOD CELL COUNT 3.54 10^6/uL (4.40-6.38); RED CELL DISTRIBUTION WIDTH 13.1 % (11.5-15.2)
[2016-09-17 19:35] LABS: ALANINE AMINOTRANSFERASE 62 IU/L (21-72); ALBUMIN 3.4 g/dL (3.5-5.0); ALKALINE PHOSPHATASE 81 IU/L (38-126); ANION GAP 9 mEq/L (8-16); ASPARTATE AMINOTRANSFERASE 34 IU/L (17-59); BILIRUBIN,TOTAL 0.4 mg/dL (0.1-1.4); BILIRUBIN-CONJUGATED 0.4 mg/dL (0.0-0.5); CALCIUM 11.5 mg/dL (8.5-10.4); CARBON DIOXIDE 25 mEq/l (22-31); CHLORIDE 97 mEq/L (97-110); CREATININE 0.8 mg/dL (0.7-1.3); GLOMERULAR FILTRATION RATE > 60; GLUCOSE 126 mg/dL (70-100); POTASSIUM 4.9 mEq/L (3.5-5.2); SODIUM 131 mEq/L (134-144); TOTAL PROTEIN 6.8 g/dL (6.3-8.2)
[2016-09-17 21:18] VITALS: BP 109/68; PULSE 63; RESP 14; O2SAT 94
== END 2016-09-17 21:24 | disposition home or self-care (01) ==
DX: S14.129D Central cord syndrome at unspecified level of cervical spinal cord, subsequent encounter (principal); E11.9 Type 2 diabetes mellitus without complications; Z98.890 Other specified postprocedural states; Z79.4 Long term (current) use of insulin; W00.0XXD Fall on same level due to ice and snow, subsequent encounter